=== PATIENT | female | born 1925 | race Caucasian/White ===

== ENCOUNTER 2016-12-15 01:53 | Emergency (ER) | payer MEDICARE, BC ==
[2016-12-15 02:13] VITALS: TEMP 97.6
[2016-12-15] MEDS ORDERED: IPRATROPIUM-ALBUTEROL 3 ML NEB INHALATION STA (02:32)
[2016-12-15] MEDS ORDERED: MAG HYDROX/AL HYDROX/SIMETH 30 ML, HYOSCYAMINE ELIXIR 10 ML, CIMETIDINE HCL 300 MG PO STA ×3 (02:32)
--- NOTE | 2016-12-15 03:05 | ED ---
General Adult HPI - General Chief complaint: Upper Respiratory Infection Stated complaint: Cough Time Seen by Provider: 12/15/16 02:26 Source: patient, RN notes reviewed Mode of arrival: ambulatory Limitations: no limitations - History of Present Illness Initial comments: 89-year-old female presents to the emergency Department chief complaint of flareup of her acid reflux that is causing her asthma to flare up. She ate pizza around 10:00 tonight she went to bed. She states she started acid reflux burning type pain in her throat when she developed a cough and now she feels as if her asthma has flared up. She states she does take daily medication for her acid reflux. Patient states that she just couldn't break the cycle home she would have anything to help with her acid reflux that she thought that she should be seen. Patient states she's not this shortness that she denies any pain she states she is just having a burning acid the pain in the neck is irritated cough. Patient denies any other symptoms at this time.Patient denies any recent fever, chills, shortness of breath, chest pain, back pain, abdominal pain, nausea vomiting, numbness or tingling, dysuria or hematuria, constipation or diarrhea, headaches or visual changes, or any other current symptoms. - Related Data Allergies Allergy/AdvReac Type Severity Reaction Status Date / Time adhesive tape Allergy Itching Verified 12/15/16 02:15 Review of Systems ROS Statement: Those systems with pertinent positive or pertinent negative responses have been documented in the HPI. ROS Other: All systems not noted in ROS Statement are negative. Past Medical History Past Medical History: GERD/Reflux, Hypertension Additional Past Medical History / Comment(s): kidney disease. hypothyroidism. History of Any Multi-Drug Resistant Organisms: None Reported Past Surgical History: Cholecystectomy Additional Past Surgical History / Comment(s): back. right knee replacement. bilateral feet. Past Psychological History: No Psychological Hx Reported Smoking Status: Former smoker Past Alcohol Use History: None Reported Past Drug Use History: None Reported General Exam - General Exam Comments Initial Comments: General: The patient is awake and alert, in no distress, and does not appear acutely ill. Eye: Pupils are equal, round and reactive to light, extra-ocular movements are intact; there is normal conjunctiva bilaterally. No signs of icterus. Ears, nose, mouth and throat: There are moist mucous membranes and no oral lesions. Neck: The neck is supple, there is no tenderness. Cardiovascular: There is a regular rate and rhythm. No murmur, rub or gallop is appreciated. Respiratory: Lungs are clear to auscultation, respirations are non-labored, breath sounds are equal. Mild expiratory wheeze, no stridor, rales, or rhonchi. Gastrointestinal: Soft, non-distended, non-tender abdomen without masses or organomegaly noted. There is no rebound or guarding present. No CVA tenderness. Bowel sounds are unremarkable. Back: There is no tenderness to palpation in the midline. There is no obvious deformity. No rashes noted. Musculoskeletal: Normal ROM tenderness, There is no pedal edema. There is no calf tenderness or swelling. Sensation intact. Pulses equal bilaterally 2+. Neurological: CN II-XII intact, There are no obvious motor or sensory deficits. Coordination appears grossly intact. Speech is normal. Skin: Skin is warm and dry and no rashes or lesions are noted. Psychiatric: Cooperative, appropriate mood & affect, normal judgment. Limitations: no limitations Course Vital Signs 12/15/16 12/15/16 12/15/16 02:06 03:00 03:11 Temperature 97.6 F Pulse Rate 69 66 72 Respiratory 16 Rate Blood Pressure 146/82 O2 Sat by Pulse 96 Oximetry - Reevaluation(s) Reevaluation #1: 12/15/16 03:41 Patient reevaluated and states that she is feeling much improved. EKG Findings - EKG Comments: EKG Findings:: normal sinus rhythm 74 bpm, normal axis, no atopy, no S-T depressions or elevations, or long QT Medical Decision Making - Medical Decision Making 89-year-old female presents with flareup of her acid reflux. She had cocktail did relieve the symptoms. The breathing treatment has resolved with cough and the wheezing has resolved. This time we did discuss the patient's symptoms. We did discuss her temporalis and follow-up and all the patient's questions. She stated that she understood and she does agree with this plan. All questions have been answered. She will be discharged home at this time. Disposition Clinical Impression: Asthma exacerbation, Acid reflux Disposition: HOME SELF-CARE Condition: Stable Instructions: Asthma (ED), Gastroesophageal Reflux Disease (ED) Additional Instructions: Please use medication as discussed. Please follow up with family doctor if symptoms have not improved over the next two days. Please return to the emergency room if your symptoms increase or worsen or for any other concerns. Referrals: Neena Bellamy MD [Primary Care Provider] - 1-2 days Time of Disposition: 03:41
--- NOTE | 2016-12-15 03:40 | XR ---
EXAM: XR Chest, 2 Views CLINICAL HISTORY: Reason: cough TECHNIQUE: Frontal and lateral views of the chest. COMPARISON: No relevant prior studies available. FINDINGS: Lungs: The lungs are clear. Pleural space: Unremarkable. No pneumothorax. Heart: Mild enlargement of the heart. Mediastinum: Probable small to moderate hiatal hernia. Bones/joints: Unremarkable. IMPRESSION: No acute findings.
[2016-12-15 03:59] VITALS: BP 142/59; PULSE 87; RESP 18
== END 2016-12-15 03:58 | disposition home or self-care (01) ==
LOC: EC 01:53
DX: J45.901 Unspecified asthma with (acute) exacerbation (principal); K21.9 Gastro-esophageal reflux disease without esophagitis; Z90.49 Acquired absence of other specified parts of digestive tract; Z87.891 Personal history of nicotine dependence; Z91.048 Other nonmedicinal substance allergy status
CPT/HCPCS: 71020; 93005; 94640; 99283

== ENCOUNTER → 2017-04-15 | Outpatient (CLI) | payer MEDICARE, BC | END | disposition home or self-care (01) | LOC: LABWHC1 11:24 | PROVIDERS: ATTEND Family Medicine | DX: Z01.812 Encounter for preprocedural laboratory examination (principal); M54.5 Low back pain | CPT/HCPCS: 36415; 82565 ==

== ENCOUNTER → 2017-04-16 | Outpatient (CLI) | payer MEDICARE, BC ==
--- NOTE | 2017-04-16 11:25 | MR ---
EXAMINATION TYPE: MR lumbar spine wo/w con DATE OF EXAM: 04/16/2017 COMPARISON: NONE HISTORY: 89-year-old female with chronic low back pain, Weakness Technique: Multiplanar, multisequence images of the lumbar spine were obtained before and after admin istration of 10 mL intravenous Gadavist gadolinium contrast. FINDINGS: Vertebral body heights are preserved. Conus medullaris is normally located opposite the L1 level. There are laminectomy changes at the L3 level with scarring along the posterior midline. Severe hypertrophic facet arthropathy with grade 1, nearly grade 2 anterolisthesis at L4-L5 and grade 1 retrolisthesis at L2-L3. Severe degenerative disc disease is present with degenerated, desiccated, narrowed, and bulging discs . Vacuum phenomenon is present as well as intradiscal calcification at various levels. Fatty matrix hemangioma and T12 and L3 vertebral bodies. Additional Modic type II fatty endplate magana ges present at L2-L3 and some edematous Modic type I endplate change towards the left at L1-L2. No garner spicious bone marrow replacement. Partially visualized lesions in the upper to mid right kidney for example, on axial image 30 and 29 s howing intermediate T1 and T2 signal and either no or questionable low-grade enhancement. This can be further evaluated with renal ultrasound. Otherwise, no prevertebral or paravertebral soft tissue abn ormality. Some intraosseous cystic change along the posterior right iliac bone could be on a posttraumatic or p ostsurgical basis. At T12-L1, diffuse disc bulge impresses on the ventral thecal sac. There is also hypertrophic facet a rthropathy and ligamentum flavum thickening. No significant spinal canal stenosis. Changes result in mild bilateral neuroforaminal stenosis. At L1-L2, diffuse disc bulge with ligamentum flavum thickening and facet arthropathy. Changes result in mild spinal canal stenosis with moderate left greater than right neuroforaminal stenosis. At L2-L3, hypertrophic facet arthropathy with ligamentum flavum thickening, grade 1 retrolisthesis, a nd diffuse disc bulge with a superimposed right paracentral extrusion. This results in right lateral recess stenosis probably affecting the traversing right L3 nerve root. There is mild spinal canal chon nosis with severe bilateral neuroforaminal stenosis. At L3-L4, there is diffuse disc bulge and laminectomy change decompressing the spinal canal. Facet ar thropathy is present. Changes result in mild bilateral neuroforaminal stenosis. No spinal canal steno sis. At L4-L5, hypertrophic facet arthropathy with ligamentum flavum thickening and grade 1, nearly grade 2 anterolisthesis. Changes result in mild overall spinal canal stenosis, possible abutment of both tr aversing L5 nerve roots, and moderate right and mild left neuroforaminal stenosis. At L5-S1, there is facet arthropathy. Laminectomy change since he present here as well. No spinal can al or neuroforaminal stenosis. Some enhancement adjacent to the exiting right L3 nerve root seems to localize to an extruded disc. S agittal image 11. No definite perineural enhancement. IMPRESSION: 1. Severe multilevel degenerative disc disease as well as hypertrophic facet arthropathy and ligament um flavum thickening. There is a grade 1, nearly grade 2 anterolisthesis at L4-L5 and grade 1 retroli sthesis at L2-L3. 2. Laminectomy changes at L3 and probably at L5 as well. 3. At L2-L3, the retrolisthesis and additional changes result in right lateral recess stenosis probab ly affecting the traversing right L3 nerve root, mild spinal canal stenosis, and severe bilateral jacobo roforaminal stenosis. Additionally, some enhancement adjacent to the exiting right L3 nerve root seem s to localize to an extruded disc at this level. 4. Mild spinal canal stenoses at L1-L2 and L4-L5. 5. Moderate left greater than right neuroforaminal stenosis at L1-L2 and on the right at L4-L5. Addit ional mild neural foraminal narrowing as outlined above.
== END | disposition home or self-care (01) ==
LOC: RADMRIMAIN 09:32
PROVIDERS: ATTEND Family Medicine
DX: M48.061 Spinal stenosis, lumbar region without neurogenic claudication (principal); M51.36 Other intervertebral disc degeneration, lumbar region; M46.96 Unspecified inflammatory spondylopathy, lumbar region; M43.16 Spondylolisthesis, lumbar region; M99.73 Connective tissue and disc stenosis of intervertebral foramina of lumbar region; M24.20 Disorder of ligament, unspecified site; Z98.890 Other specified postprocedural states
CPT/HCPCS: 72158; A9581

== ENCOUNTER 2017-04-28 19:53 | Inpatient (IN) | payer MEDICARE, BC ==
[2017-04-28] MEDS ORDERED: ACETAMINOPHEN TAB 500 MG TAB PO STA (20:21)
--- NOTE | 2017-04-28 20:25 | ED ---
General Adult HPI - General Source: patient Mode of arrival: wheelchair Limitations: no limitations <Blaine Patricia - Last Filed: 04/28/17 20:23> <Mitesh Cohen - Last Filed: 04/28/17 22:25> - General Chief complaint: Chest Pain Stated complaint: weakness Time Seen by Provider: 04/28/17 20:21 - History of Present Illness Initial comments: Is an 89-year-old failed a history of atrial fibrillation, hypertension, diabetes, and chronic back pain who presents emergency department for generalized body aches, chills, cough and shortness of breath. She states that she also has been having a little bit of a right earache. She is also been complaining of urinary frequency but no dysuria. No abdominal pain nausea, vomiting, or diarrhea. She denies any rashes. States that she has not been around anybody sick. She does not know she's had a fever at home. Was recently diagnosed with atrial fibrillation and placed on Eliquis which she has been compliant with. She denies any other acute complaints at this time. (Blaine Patricia) - Related Data Allergies Allergy/AdvReac Type Severity Reaction Status Date / Time adhesive tape Allergy Itching Verified 04/28/17 20:42 Review of Systems ROS Other: All systems not noted in ROS Statement are negative. <Blaine Patricia - Last Filed: 04/28/17 20:23> ROS Other: All systems not noted in ROS Statement are negative. <Mitesh Cohen - Last Filed: 04/28/17 22:25> ROS Statement: Those systems with pertinent positive or pertinent negative responses have been documented in the HPI. Past Medical History Past Medical History: GERD/Reflux, Hypertension Additional Past Medical History / Comment(s): kidney disease. hypothyroidism. History of Any Multi-Drug Resistant Organisms: None Reported Past Surgical History: Cholecystectomy Additional Past Surgical History / Comment(s): back. right knee replacement. bilateral feet. Past Psychological History: No Psychological Hx Reported Smoking Status: Former smoker Past Alcohol Use History: None Reported Past Drug Use History: None Reported <Blaine Patricia - Last Filed: 04/28/17 20:23> General Exam Limitations: no limitations <Blaine Patricia - Last Filed: 04/28/17 20:23> <Mitesh Cohen - Last Filed: 04/28/17 22:25> - General Exam Comments Initial Comments: Constitutional: Awake alert is ill-appearing and appears uncomfortable Head: Normocephalic atraumatic Eyes: no conjunctival injection No scleral icterus EOMI ENT: Oropharynx is nonerythematous, TMs clear bilaterally, no rhinorrhea Neck: No JVD Supple Heart: Regular rate rhythm normal S1-S2 no murmurs Lungs: Clear on the left lung base, right lung is clear to auscultation No wheezing Abdomen: Soft nondistended nontender Extremities: Non edematous DP pulses intact Radial pulses intact Neuro: A&Ox3 No focal neurologic deficits Psych: Appropriate mood and affect (Blaine Patricia) Course <Blaine Patricia - Last Filed: 04/28/17 20:23> <Mitesh Cohen - Last Filed: 04/28/17 22:25> Vital Signs 04/28/17 04/28/17 04/28/17 19:59 20:41 21:16 Temperature 100.9 F H 99.9 F H Pulse Rate 67 Respiratory 18 22 20 Rate Blood Pressure 176/114 O2 Sat by Pulse 93 L 94 L Oximetry 04/28/17 04/28/17 21:30 21:57 Temperature 99.3 F Pulse Rate 89 89 Respiratory 20 20 Rate Blood Pressure 154/82 173/98 O2 Sat by Pulse 97 96 Oximetry - Reevaluation(s) Reevaluation #1: 04/28/17 22:24 Patient is positive for influenza. Patient also has evidence of urinary tract infection and questionable pneumonia. Patient does meet sepsis criteria at 2224. Blood cultures and lactic acid ordered. Antibiotics will be started. Tamiflu will also be started. (Mitesh Cohen) EKG Findings - EKG Comments: EKG Findings:: EKG showing atrial fibrillation with a rate of 95. No abnormal ST segment changes or T-wave inversions. QTC is 397. Other intervals normal. No ectopy. <Blaine Patricia - Last Filed: 04/28/17 20:23> Medical Decision Making <Blaine Patricia - Last Filed: 04/28/17 20:23> - Lab Data Result diagrams: 04/28/17 21:00 04/28/17 21:00 <Mitesh Cohen - Last Filed: 04/28/17 22:25> - Medical Decision Making Patient reevaluated by myself, Dr. Cohen. Patient resting comfortably in bed. Patient states she still feels lousy. Patient and family updated on results and plan. Case was discussed in detail with Dr. Oneil, who will admit for Dr. Bellamy. (Mitesh Cohen) - Lab Data Lab Results 04/28/17 04/28/17 04/28/17 Range/Units 20:20 21:00 21:00 WBC 5.9 (3.8-10.6) k/uL RBC 4.24 (3.80-5.40) m/uL Hgb 12.4 (11.4-16.0) gm/dL Hct 37.5 (34.0-46.0) % MCV 88.4 (80.0-100.0) fL MCH 29.4 (25.0-35.0) pg MCHC 33.2 (31.0-37.0) g/dL RDW 13.4 (11.5-15.5) % Plt Count 130 L (150-450) k/uL Neutrophils % 83 % Lymphocytes % 6 % Monocytes % 9 % Eosinophils % 0 % Basophils % 1 % Neutrophils # 4.9 (1.3-7.7) k/uL Lymphocytes # 0.3 L (1.0-4.8) k/uL Monocytes # 0.5 (0-1.0) k/uL Eosinophils # 0.0 (0-0.7) k/uL Basophils # 0.0 (0-0.2) k/uL PT (9.0-12.0) sec INR (<1.2) APTT (22.0-30.0) sec Sodium (137-145) mmol/L Potassium (3.5-5.1) mmol/L Chloride (98-107) mmol/L Carbon Dioxide (22-30) mmol/L Anion Gap mmol/L BUN (7-17) mg/dL Creatinine (0.52-1.04) mg/dL Est GFR (MDRD) Af Amer (>60 ml/min/1.73 sqM) Est GFR (MDRD) Non-Af (>60 ml/min/1.73 sqM) Glucose (74-99) mg/dL Plasma Lactic Acid [place] (0.7-2.0) mmol/L Calcium (8.4-10.2) mg/dL Total Bilirubin (0.2-1.3) mg/dL AST (14-36) U/L ALT (9-52) U/L Alkaline Phosphatase (38-126) U/L Total Creatine Kinase 79 (30-135) U/L CK-MB (CK-2) 0.6 (0.0-2.4) ng/mL CK-MB (CK-2) Rel Index 0.8 Troponin I 0.038 H* (0.000-0.034) ng/mL Total Protein (6.3-8.2) g/dL Albumin (3.5-5.0) g/dL Urine Color Urine Appearance (Clear) Urine pH (5.0-8.0) Ur Specific [place] (1.001-1.035) Urine Protein (Negative) Urine Glucose (UA) (Negative) Urine Ketones (Negative) Urine Blood (Negative) Urine Nitrite (Negative) Urine Bilirubin (Negative) Urine Urobilinogen (<2.0) mg/dL Ur Leukocyte Esterase (Negative) Urine RBC (0-5) /hpf Urine WBC (0-5) /hpf Ur Squamous Epith Cells (0-4) /hpf Urine Bacteria (None) /hpf Hyaline Casts (0-2) /lpf Urine Mucus (None) /hpf Influenza Type A RNA Detected H (Not Detectd) Influenza Type B (PCR) Not Detected (Not Detectd) 04/28/17 04/28/17 04/28/17 Range/Units 21:00 21:00 21:00 WBC (3.8-10.6) k/uL RBC (3.80-5.40) m/uL Hgb (11.4-16.0) gm/dL Hct (34.0-46.0) % MCV (80.0-100.0) fL MCH (25.0-35.0) pg MCHC (31.0-37.0) g/dL RDW (11.5-15.5) % Plt Count (150-450) k/uL Neutrophils % % Lymphocytes % % Monocytes % % Eosinophils % % Basophils % % Neutrophils # (1.3-7.7) k/uL Lymphocytes # (1.0-4.8) k/uL Monocytes # (0-1.0) k/uL Eosinophils # (0-0.7) k/uL Basophils # (0-0.2) k/uL PT 11.7 (9.0-12.0) sec INR 1.2 H (<1.2) APTT 28.0 (22.0-30.0) sec Sodium 135 L (137-145) mmol/L Potassium 3.9 (3.5-5.1) mmol/L Chloride 98 (98-107) mmol/L Carbon Dioxide 26 (22-30) mmol/L Anion Gap 11 mmol/L BUN 20 H (7-17) mg/dL Creatinine 1.00 (0.52-1.04) mg/dL Est GFR (MDRD) Af Amer >60 (>60 ml/min/1.73 sqM) Est GFR (MDRD) Non-Af 52 (>60 ml/min/1.73 sqM) Glucose 178 H (74-99) mg/dL Plasma Lactic Acid [place] 1.2 (0.7-2.0) mmol/L Calcium 9.2 (8.4-10.2) mg/dL Total Bilirubin 0.6 (0.2-1.3) mg/dL AST 25 (14-36) U/L ALT 31 (9-52) U/L Alkaline Phosphatase 96 (38-126) U/L Total Creatine Kinase (30-135) U/L CK-MB (CK-2) (0.0-2.4) ng/mL CK-MB (CK-2) Rel Index Troponin I (0.000-0.034) ng/mL Total Protein 6.5 (6.3-8.2) g/dL Albumin 3.7 (3.5-5.0) g/dL Urine Color Urine Appearance (Clear) Urine pH (5.0-8.0) Ur Specific [place] (1.001-1.035) Urine Protein (Negative) Urine Glucose (UA) (Negative) Urine Ketones (Negative) Urine Blood (Negative) Urine Nitrite (Negative) Urine Bilirubin (Negative) Urine Urobilinogen (<2.0) mg/dL Ur Leukocyte Esterase (Negative) Urine RBC (0-5) /hpf Urine WBC (0-5) /hpf Ur Squamous Epith Cells (0-4) /hpf Urine Bacteria (None) /hpf Hyaline Casts (0-2) /lpf Urine Mucus (None) /hpf Influenza Type A RNA (Not Detectd) Influenza Type B (PCR) (Not Detectd) 04/28/17 Range/Units 21:45 WBC (3.8-10.6) k/uL RBC (3.80-5.40) m/uL Hgb (11.4-16.0) gm/dL Hct (34.0-46.0) % MCV (80.0-100.0) fL MCH (25.0-35.0) pg MCHC (31.0-37.0) g/dL RDW (11.5-15.5) % Plt Count (150-450) k/uL Neutrophils % % Lymphocytes % % Monocytes % % Eosinophils % % Basophils % % Neutrophils # (1.3-7.7) k/uL Lymphocytes # (1.0-4.8) k/uL Monocytes # (0-1.0) k/uL Eosinophils # (0-0.7) k/uL Basophils # (0-0.2) k/uL PT (9.0-12.0) sec INR (<1.2) APTT (22.0-30.0) sec Sodium (137-145) mmol/L Potassium (3.5-5.1) mmol/L Chloride (98-107) mmol/L Carbon Dioxide (22-30) mmol/L Anion Gap mmol/L BUN (7-17) mg/dL Creatinine (0.52-1.04) mg/dL Est GFR (MDRD) Af Amer (>60 ml/min/1.73 sqM) Est GFR (MDRD) Non-Af (>60 ml/min/1.73 sqM) Glucose (74-99) mg/dL Plasma Lactic Acid [place] (0.7-2.0) mmol/L Calcium (8.4-10.2) mg/dL Total Bilirubin (0.2-1.3) mg/dL AST (14-36) U/L ALT (9-52) U/L Alkaline Phosphatase (38-126) U/L Total Creatine Kinase (30-135) U/L CK-MB (CK-2) (0.0-2.4) ng/mL CK-MB (CK-2) Rel Index Troponin I (0.000-0.034) ng/mL Total Protein (6.3-8.2) g/dL Albumin (3.5-5.0) g/dL Urine Color Yellow Urine Appearance Cloudy H (Clear) Urine pH 6.5 (5.0-8.0) Ur Specific [place] 1.018 (1.001-1.035) Urine Protein 3+ H (Negative) Urine Glucose (UA) Negative (Negative) Urine Ketones Trace H (Negative) Urine Blood Small H (Negative) Urine Nitrite Negative (Negative) Urine Bilirubin Negative (Negative) Urine Urobilinogen 3.0 (<2.0) mg/dL Ur Leukocyte Esterase Small H (Negative) Urine RBC 8 H (0-5) /hpf Urine WBC 24 H (0-5) /hpf Ur Squamous Epith Cells 2 (0-4) /hpf Urine Bacteria Moderate H (None) /hpf Hyaline Casts 3 H (0-2) /lpf Urine Mucus Rare H (None) /hpf Influenza Type A RNA (Not Detectd) Influenza Type B (PCR) (Not Detectd) Critical Care Time Critical Care Time: Yes Total Critical Care Time: 32 <Mitesh Cohen - Last Filed: 04/28/17 22:25> Disposition <Blaine Patricia - Last Filed: 04/28/17 20:23> Decision Time: 22:25 <Mitesh Cohen - Last Filed: 04/28/17 22:25> Clinical Impression: Influenza, Urinary tract infection, Sepsis Disposition: ADMITTED IP TO THIS HOSP Referrals: Neena Bellamy MD [Primary Care Provider] - 1-2 days
[2017-04-28] MEDS: SODIUM CHLORIDE 0.9% 1,000 ML IV SCH (21:03)
[2017-04-28] MEDS: SODIUM CHLORIDE 0.9% 500 ML IV SCH ×2 (21:03→21:39)
[2017-04-28] MEDS ORDERED: OSELTAMIVIR 75 MG CAP PO STA (21:06)
[2017-04-28 21:18] LABS: Basophils % (A) 1 %; Eosinophils % (A) 0 %; HCT 37.5 % (34.0-46.0); HGB 12.4 gm/dL (11.4-16.0); Lymphocytes # (A) 0.3 k/uL (1.0-4.8); Lymphocytes % (A) 6 %; MCH 29.4 pg (25.0-35.0); MCHC 33.2 g/dL (31.0-37.0); MCV 88.4 fL (80.0-100.0); Mean Platelet Volume 8.4; Monocytes # (A) 0.5 k/uL (0-1.0); Monocytes % (A) 9 %; Neutrophils # (A) 4.9 k/uL (1.3-7.7); Neutrophils % (A) 83 %; Platelet Count 130 k/uL (150-450); RBC 4.24 m/uL (3.80-5.40); RDW 13.4 % (11.5-15.5); WBC 5.9 k/uL (3.8-10.6)
[2017-04-28 21:26] LABS: INR 1.2 (<1.2); Prothrombin Time 11.7 sec (9.0-12.0)
[2017-04-28 21:32] LABS: ALT 31 U/L (9-52); AST 25 U/L (14-36); Albumin 3.7 g/dL (3.5-5.0); Alkaline Phosphatase 96 U/L (38-126); Anion Gap 11 mmol/L; Blood Urea Nitrogen 20 mg/dL (7-17); Calcium 9.2 mg/dL (8.4-10.2); Carbon Dioxide 26 mmol/L (22-30); Chloride 98 mmol/L (98-107); Glucose 178 mg/dL (74-99); Potassium 3.9 mmol/L (3.5-5.1); Sodium 135 mmol/L (137-145); Total Bilirubin 0.6 mg/dL (0.2-1.3); Total Protein 6.5 g/dL (6.3-8.2)
--- NOTE | 2017-04-28 21:49 | XR ---
EXAMINATION TYPE: XR chest 2V DATE OF EXAM: 04/28/2017 COMPARISON: 12/15/2016 HISTORY: Cough TECHNIQUE: Frontal and lateral views of the chest are obtained. FINDINGS: There is some coarsening of interstitial markings. Thoracic aorta is atheromatous. There a re chest leads. There is no pleural effusion. There is mild wedging of T9 and T8 vertebral bodies. IMPRESSION: Lung markings are increased compared to last exam but there is no overt heart failure. T here is a new minimal infiltrate in the periphery of the left midlung compared to old exam.
[2017-04-28 21:52] LABS: Creatine Kinase MB 0.6 ng/mL (0.0-2.4)
[2017-04-28 21:55] LABS: Troponin I 0.038 ng/mL (0.000-0.034)
[2017-04-28 22:08] LABS: Appearance,Urine Cloudy (Clear); Bacteria,Urine Moderate /hpf; Bilirubin,Urine Negative (Negative); Blood,Urine Small (Negative); Color,Urine Yellow; Glucose,Urine (UA) Negative (Negative); Hyaline Casts,Urine 3 /lpf (0-2); Ketones,Urine Trace (Negative); Leukocyte Esterase,Urine Small (Negative); Mucus,Urine Rare /hpf; Nitrite,Urine Negative (Negative); PH, Urine 6.5 (5.0-8.0); Protein,Urine 3+ (Negative); RBC,Urine 8 /hpf (0-5); Specific Gravity,Urine 1.018 (1.001-1.035); Squamous Epithelial Cell,Urine 2 /hpf (0-4); WBC,Urine 24 /hpf (0-5)
[2017-04-28] MEDS ORDERED: IBUPROFEN 400 MG TAB PO PRN (22:26)
[2017-04-28] MEDS ORDERED: NALOXONE 0.4 MG/ML 1 ML VIAL IV PRN (22:26)
[2017-04-28] MEDS ORDERED: LEVOFLOXACIN 750MG-D5W PMX 750 MG in DEXTROSE/WATER 1 150ML.BAG IVPB STA (22:28)
[2017-04-29 00:25] LABS: Glucose,Whole Blood 179 mg/dL (75-99)
[2017-04-29 00:26] VITALS: BMI 27.3
[2017-04-29] MEDS: SODIUM CHLORIDE 0.9% 500 ML IV SCH (00:39)
--- NOTE | 2017-04-29 01:26 | P.HPIM ---
History of Present Illness H&P Date: 04/29/17 Chief Complaint: generalized body aches, chest pain with coughing 89 year old female recently diagnosed with Afib on Eliquis. presented due to couple days history of generalized body aches, runny nose and productive cough. She describes a productive cough of whitish sputum, no hemoptysis, denies sick contacts or any recent travel, this is associated with chest pain right sided and central when coughing (pleuritic in nature), denies any fever at home, but reports some shortness of breath at times with severe attacks of coughing. This is also associated with runny nose , and generalized muscle pain and aches. She reports taking the flu shot this year. She also reports 2 day history of frequent urination , denies any heamturia or dysuria. denies any abd pain or diarrhea, but reports feeling nauseas. She has advance directives and expressed interest in No code status. Currently she feels slightly better and wants to rest more, she feels very cold despite being in a really warm room. Otherwise denies any history of heart failure of CAD, denies, orthopnea, dyspnea on exertion, PNDs. denies any GI bleeding or any bleeding tendencies. In the ED, patient tested positive for influenza type A, and had a positive UA. Review of Systems Constitutional: Patient denies fever, reports chills, denies night sweating, denies significant weight changes Eyes: Patient denies visual changes, denies eye pain ENT: Patient reports ear pain, reports rhinorrhea, reports sore throat Cardiovascular: Patient denies chest pain, denies exertional dyspnea, denies peripheral leg edema, denies orthopnea, denies paroxysmal nocturnal dyspnea Respiratory: as per HPI Gastrointestinal: Patient denies diarrhea, denies constipation, , denies vomiting, denies abdominal pain Genitourinary: Patient denies dysuria, denies hematuria, , denies genital lesions Musculoskeletal: Patient reports diffuse body aches Psychiatric: Patient denies changes in mood or memory, denies suicidal ideation, denies anxiety Endocrine: Patient denies heat intolerance, reports cold intolerance, denies excessive thirst, denies polyuria Neurological: Patient denies focal neurologic deficits, denies weakness, denies numbness, denies tingling Hem/Lymphatic: Patient denies bleeding tendency, denies bruising, denies swollen lymph glands Allergic/Immun: Patient denies recent allergic reactions Skin: Patient denies rashes, denies pruritis, denies ulcers Past Medical History Past Medical History: Atrial Fibrillation, Diabetes Mellitus, GERD/Reflux, Hypertension Additional Past Medical History / Comment(s): kidney disease. hypothyroidism. History of Any Multi-Drug Resistant Organisms: None Reported Past Surgical History: Cholecystectomy Additional Past Surgical History / Comment(s): back. right knee replacement. bilateral feet. Past Psychological History: No Psychological Hx Reported Smoking Status: Former smoker Past Alcohol Use History: None Reported Past Drug Use History: None Reported Additional History: Denies family history of cancer Medications and Allergies Home Medications Medication Instructions Recorded Confirmed Type Apixaban [Eliquis] 2.5 mg PO BID 04/28/17 04/28/17 History Ascorbic Acid [Vitamin C] 500 mg PO DAILY 04/28/17 04/28/17 History Cholecalciferol [Vitamin D3] 1,000 unit PO DAILY 04/28/17 04/28/17 History Enalapril/Hydrochlorothiazide 1 tab PO DAILY 04/28/17 04/28/17 History [Enalapril-Hctz 10-25 mg Tablet] Gabapentin [Neurontin] 300 mg PO TID 04/28/17 04/28/17 History Levothyroxine Sodium [Synthroid] 25 mcg PO DAILY 04/28/17 04/28/17 History Magnesium Oxide [Mag-Ox] 250 mg PO DAILY 04/28/17 04/28/17 History Omeprazole 20 mg PO DAILY 04/28/17 04/28/17 History Pioglitazone HCl 15 mg PO DAILY 04/28/17 04/28/17 History Tolterodine ER [Detrol LA] 4 mg PO DAILY 04/28/17 04/28/17 History oxyCODONE-APAP 10-325MG [Percocet 0.5 - 1 tab PO TID PRN 04/28/17 04/28/17 History 10-325 mg] Allergies Allergy/AdvReac Type Severity Reaction Status Date / Time adhesive tape Allergy Itching Verified 04/28/17 20:42 Physical Exam Vitals: Vital Signs Temp Pulse Resp BP Pulse Ox 04/28/17 22:53 88 20 176/98 93 L 04/28/17 21:57 99.3 F 89 20 173/98 96 04/28/17 21:30 89 20 154/82 97 04/28/17 21:16 99.9 F H 20 94 L 04/28/17 20:41 22 04/28/17 19:59 100.9 F H 67 18 176/114 93 L Intake and Output 04/28/17 04/28/17 04/29/17 14:59 22:59 06:59 Other: Weight 79.379 kg Patient Weight 04/29/17 06:59 Weight 79.379 kg Constitutional: No acute distress, conversant, pleasant Eyes: Anicteric sclerae, moist conjunctiva, no lid-lag Pupils equal round reactive to light ENMT: NC/AT Oropharynx clear, no erythema, exudates Neck: Supple, FROM, no masses, or JVD No carotid bruits No thyromegaly Lungs: Good breath sounds bilaterally, there is minimal end expiratory wheezes Clear to percussion Normal respiratory effort, no accessory muscle use Cardiovascular: Heart regular in rate and rhythm, No murmurs, gallops, or rubs No peripheral edema Abdominal: Soft Nontender, no guarding, rebound or rigidity Abdomen moving with respiration Normoactive bowel sounds No hepatomegaly, No splenomegaly No palpable mass No abdominal wall hernia noted Skin: Normal temperature, tone, texture, turgor No induration No subcutaneous nodules No rash, lesions No ulcers Extremities: No digital cyanosis No clubbing Pedal pulses intact and symmetrical Radial pulses intact and symmetrical No calf tenderness Psychiatric: Alert and oriented to person, place Appropriate affect fair judgment Neuro Muscles Strength 4/5 in all 4 extremities Sensation to light touch grossly present throughout Cranial nerves II-XII grossly intact No focal sensory deficits Lymphatics: no palpable cervical or supraclavicular , or inguinal lymph nodes Results CBC & Chem 7: 04/28/17 21:00 04/28/17 21:00 Labs: Abnormal Lab Results - Last 24 Hours (Table) 04/28/17 04/28/17 04/28/17 Range/Units 20:20 21:00 21:00 Plt Count 130 L (150-450) k/uL Lymphocytes # 0.3 L (1.0-4.8) k/uL INR (<1.2) Sodium (137-145) mmol/L BUN (7-17) mg/dL Glucose (74-99) mg/dL Troponin I 0.038 H* (0.000-0.034) ng/mL Urine Appearance (Clear) Urine Protein (Negative) Urine Ketones (Negative) Urine Blood (Negative) Ur Leukocyte Esterase (Negative) Urine RBC (0-5) /hpf Urine WBC (0-5) /hpf Urine Bacteria (None) /hpf Hyaline Casts (0-2) /lpf Urine Mucus (None) /hpf Influenza Type A RNA Detected H (Not Detectd) 04/28/17 04/28/17 04/28/17 Range/Units 21:00 21:00 21:45 Plt Count (150-450) k/uL Lymphocytes # (1.0-4.8) k/uL INR 1.2 H (<1.2) Sodium 135 L (137-145) mmol/L BUN 20 H (7-17) mg/dL Glucose 178 H (74-99) mg/dL Troponin I (0.000-0.034) ng/mL Urine Appearance Cloudy H (Clear) Urine Protein 3+ H (Negative) Urine Ketones Trace H (Negative) Urine Blood Small H (Negative) Ur Leukocyte Esterase Small H (Negative) Urine RBC 8 H (0-5) /hpf Urine WBC 24 H (0-5) /hpf Urine Bacteria Moderate H (None) /hpf Hyaline Casts 3 H (0-2) /lpf Urine Mucus Rare H (None) /hpf Influenza Type A RNA (Not Detectd) Assessment and Plan Assessment: 89 year old female presented with 2 days history of flu like illness with pleuritic chest pain. Patient was found to have Positive Flu type A. She was also found to have slightly elevated troponins , no ekg changes, denies any chest pain other than pleuritic chest pain exclusively when coughs. (1) Influenza Narrative/Plan: droplets precautions start tamiflu with possible viral pneumonia no clinical evidence of Sepsis Current Visit: Yes Status: Acute Code(s): J11.1 - FLU DUE TO UNIDENTIFIED INFLUENZA VIRUS W OTH RESP MANIFEST SNOMED Code(s): 2303393 (2) Urinary tract infection Narrative/Plan: await urine cultures started on levofloxacin Current Visit: Yes Status: Acute Code(s): N39.0 - URINARY TRACT INFECTION, SITE NOT SPECIFIED SNOMED Code(s): 64750922 (3) Elevated troponin Narrative/Plan: denies any chest pain , EKG no acute changes trend heart enzymes , r/o ACS resume home medications no history of CAD start ASA 81 mg Current Visit: Yes Status: Acute Code(s): R74.8 - ABNORMAL LEVELS OF OTHER SERUM ENZYMES SNOMED Code(s): 324393525 (4) Diabetes mellitus Narrative/Plan: elevated blood sugar, type II DM, on oral hypoglycemic agents at home insulin per sliding scale hold oral hypoglycemic agents check A1c% Current Visit: Yes Status: Chronic Code(s): E11.9 - TYPE 2 DIABETES MELLITUS WITHOUT COMPLICATIONS SNOMED Code(s): 23021656 (5) Hypothyroid Narrative/Plan: resume home medications Current Visit: No Status: Chronic Code(s): E03.9 - HYPOTHYROIDISM, UNSPECIFIED SNOMED Code(s): 46568523 (6) Hypertension Current Visit: Yes Status: Chronic Code(s): I10 - ESSENTIAL (PRIMARY) HYPERTENSION SNOMED Code(s): 00027241 (7) Afib Narrative/Plan: chronic afib, rate controlled now resume Eliquis cardiac monitoring Current Visit: No Status: Chronic Code(s): I48.91 - UNSPECIFIED ATRIAL FIBRILLATION SNOMED Code(s): 93123653 (8) DVT prophylaxis Narrative/Plan: on eliquis for afib Current Visit: Yes Status: Acute Code(s): QJJ6810 - SNOMED Code(s): 981618532 (9) Thrombocytopenia Narrative/Plan: no evidence of bleeding continue to monitor Current Visit: Yes Status: Acute Code(s): D69.6 - THROMBOCYTOPENIA, UNSPECIFIED SNOMED Code(s): 388277632 Plan: Surrogate decision-maker: patient daughter CODE STATUS:no code DVT prophylaxis: on eliquis for afib Discussed with: Patient, ER, RN Anticipated discharge: 48-72 hours due to severity of illness, patient tested positive for flu A with possible viral pneumonia, patient also has UTI Anticipated discharge place: pending clinical course, possibly home
[2017-04-29 03:26] LABS: Basophils % (A) 0 %; Eosinophils % (A) 0 %; HCT 36.9 % (34.0-46.0); HGB 11.9 gm/dL (11.4-16.0); Lymphocytes # (A) 0.5 k/uL (1.0-4.8); Lymphocytes % (A) 10 %; MCH 28.6 pg (25.0-35.0); MCHC 32.3 g/dL (31.0-37.0); MCV 88.7 fL (80.0-100.0); Mean Platelet Volume 9.5; Monocytes # (A) 0.4 k/uL (0-1.0); Monocytes % (A) 9 %; Neutrophils # (A) 3.9 k/uL (1.3-7.7); Neutrophils % (A) 79 %; Platelet Count 130 k/uL (150-450); RBC 4.17 m/uL (3.80-5.40); RDW 14.3 % (11.5-15.5)
[2017-04-29 03:55] LABS: ALT 35 U/L (9-52); AST 24 U/L (14-36); Albumin 3.4 g/dL (3.5-5.0); Alkaline Phosphatase 88 U/L (38-126); Anion Gap 11 mmol/L; Blood Urea Nitrogen 19 mg/dL (7-17); Calcium 8.9 mg/dL (8.4-10.2); Carbon Dioxide 26 mmol/L (22-30); Chloride 100 mmol/L (98-107); Glucose 142 mg/dL (74-99); Potassium 3.7 mmol/L (3.5-5.1); Sodium 137 mmol/L (137-145); Total Bilirubin 0.4 mg/dL (0.2-1.3)
[2017-04-29 04:07] LABS: Creatine Kinase MB 1.2 ng/mL (0.0-2.4)
[2017-04-29 04:16] LABS: Troponin I 0.044 ng/mL (0.000-0.034)
[2017-04-29 06:17] LABS: Glucose,Whole Blood 134 mg/dL (75-99)
[2017-04-29] MEDS: INSULIN ASPART 100 UNIT/ML 1 ML 10 ML VIAL SQ SCH ×4 (06:17→21:11)
[2017-04-29] MEDS: SODIUM CHLORIDE 0.9% 1,000 ML IV SCH ×3 (06:17→20:41)
[2017-04-29] MEDS ORDERED: ALBUTEROL NEBULIZED 2.5 MG/3 ML INHALATION PRN (08:25)
[2017-04-29] MEDS ORDERED: hydrALAZINE HCL 20 MG/ML 1 ML VIAL IVP PRN (08:25)
[2017-04-29] MEDS: APIXABAN 2.5 MG TABLET PO SCH ×2 (08:51→20:40)
[2017-04-29] MEDS: ASCORBIC ACID 500 MG TAB PO SCH (08:51)
[2017-04-29] MEDS: GABAPENTIN 100 MG CAP PO SCH ×3 (08:51→20:40)
[2017-04-29] MEDS: CHOLECALCIFEROL 1,000 UNIT TAB PO SCH (08:51)
[2017-04-29] MEDS: MAGNESIUM OXIDE 400 MG TAB PO SCH (08:52)
[2017-04-29] MEDS: LISINOPRIL-HCTZ 20-25 MG 1 EACH TAB PO SCH (08:52)
[2017-04-29] MEDS: LEVOTHYROXINE 25 MCG TAB PO SCH (08:52)
[2017-04-29] MEDS: PANTOPRAZOLE 40 MG TABLET PO SCH (08:53)
[2017-04-29] MEDS: ACETAMINOPHEN TAB 325 MG TAB PO PRN ×2 (08:53→17:14)
[2017-04-29] MEDS: OXYBUTYNIN XL 5 MG TAB.ER.24 PO SCH (08:53)
[2017-04-29] MEDS ORDERED: OSELTAMIVIR 75 MG CAP PO SCH (09:00)
[2017-04-29 10:09] LABS: Creatine Kinase MB 1.6 ng/mL (0.0-2.4)
[2017-04-29 10:11] LABS: Troponin I 0.048 ng/mL (0.000-0.034)
--- NOTE | 2017-04-29 11:26 | P.PN ---
Subjective Progress Note Date: 04/29/17 Principal diagnosis: Influenza Patient is an 89-year-old female with a past medical history of hypertension, diabetes, hypothyroidism, and atrial fibrillation who presented to the ER with complaints of body aches and productive cough. In the ER she underwent an extensive evaluation. On her initial vital signs she was found to be head lightly hypertensive with a systolic blood pressure of 174 and a temperature of 100.9. Chest x-ray showed a new minimal infiltrate in the periphery of the left mid lung. Laboratory analysis showed a mildly elevated troponin at 0.03 and an elevated glucose at 178. Urinalysis showed possible urinary tract infection. Her influenza swab demonstrated influenza a. She was started on Tamiflu, Levaquin, and IV fluids. She was given a dose of aspirin. She was admitted to the selective care unit for further monitoring. Patient seen and examined at bedside. She is still having severe body aches and back pain. She states her cough has improved slightly. She is still feeling short of breath. She denies any chest pain. She denies any nausea. She is feeling very fatigued. She has lack of appetite. Objective - Vital Signs Vital signs: Vital Signs Temp 98 F 04/29/17 04:00 Pulse 86 04/29/17 04:00 Resp 17 04/29/17 04:00 BP 154/86 04/29/17 04:00 Pulse Ox 97 04/29/17 04:00 Intake & Output 04/28/17 04/29/17 04/29/17 18:59 06:59 18:59 Intake Total 600 Output Total 300 Balance 300 Weight 98.1 kg Intake: Intake, IV Titration 600 Amount Sodium Chloride 0.9% 1, 600 000 ml @ 100 mls/hr IV . Q10H [facility] Rx#:[id number] Output: Urine 300 - Exam General: ill appearing, mild distress, appears at stated age, obese Derm: warm, dry Head: atraumatic, normocephalic, symmetric, hard of hearing Eyes: EOMI, no lid lag, anicteric sclera Mouth: no lip lesion, mucus membranes moist Cardiovascular: S1S2 reg, no murmur, positive posterior tibial pulse bilateral, Lungs: Decreased breath sounds bilateral bases, no rhonchi, no rales , no accessory muscle use Abdominal: soft, nontender to palpation, no guarding, no appreciable organomegaly Ext: no gross muscle atrophy, trace edema, no contractures Neuro: CN II-XI grossly intact, no focal neuro deficits Psych: Alert, oriented, appropriate affect - Labs CBC & Chem 7: 04/29/17 03:02 04/29/17 03:02 Labs: Abnormal Lab Results - Last 24 Hours (Table) 04/28/17 04/28/17 04/28/17 Range/Units 20:20 21:00 21:00 Plt Count 130 L (150-450) k/uL Lymphocytes # 0.3 L (1.0-4.8) k/uL INR (<1.2) Sodium (137-145) mmol/L BUN (7-17) mg/dL Glucose (74-99) mg/dL POC Glucose (mg/dL) (75-99) mg/dL Troponin I 0.038 H* (0.000-0.034) ng/mL Total Protein (6.3-8.2) g/dL Albumin (3.5-5.0) g/dL Urine Appearance (Clear) Urine Protein (Negative) Urine Ketones (Negative) Urine Blood (Negative) Ur Leukocyte Esterase (Negative) Urine RBC (0-5) /hpf Urine WBC (0-5) /hpf Urine Bacteria (None) /hpf Hyaline Casts (0-2) /lpf Urine Mucus (None) /hpf Influenza Type A RNA Detected H (Not Detectd) 04/28/17 04/28/17 04/28/17 Range/Units 21:00 21:00 21:45 Plt Count (150-450) k/uL Lymphocytes # (1.0-4.8) k/uL INR 1.2 H (<1.2) Sodium 135 L (137-145) mmol/L BUN 20 H (7-17) mg/dL Glucose 178 H (74-99) mg/dL POC Glucose (mg/dL) (75-99) mg/dL Troponin I (0.000-0.034) ng/mL Total Protein (6.3-8.2) g/dL Albumin (3.5-5.0) g/dL Urine Appearance Cloudy H (Clear) Urine Protein 3+ H (Negative) Urine Ketones Trace H (Negative) Urine Blood Small H (Negative) Ur Leukocyte Esterase Small H (Negative) Urine RBC 8 H (0-5) /hpf Urine WBC 24 H (0-5) /hpf Urine Bacteria Moderate H (None) /hpf Hyaline Casts 3 H (0-2) /lpf Urine Mucus Rare H (None) /hpf Influenza Type A RNA (Not Detectd) 04/29/17 04/29/17 04/29/17 Range/Units 00:05 03:02 03:02 Plt Count 130 L (150-450) k/uL Lymphocytes # 0.5 L (1.0-4.8) k/uL INR (<1.2) Sodium (137-145) mmol/L BUN (7-17) mg/dL Glucose (74-99) mg/dL POC Glucose (mg/dL) 179 H (75-99) mg/dL Troponin I 0.044 H* (0.000-0.034) ng/mL Total Protein (6.3-8.2) g/dL Albumin (3.5-5.0) g/dL Urine Appearance (Clear) Urine Protein (Negative) Urine Ketones (Negative) Urine Blood (Negative) Ur Leukocyte Esterase (Negative) Urine RBC (0-5) /hpf Urine WBC (0-5) /hpf Urine Bacteria (None) /hpf Hyaline Casts (0-2) /lpf Urine Mucus (None) /hpf Influenza Type A RNA (Not Detectd) 04/29/17 04/29/17 Range/Units 03:02 06:14 Plt Count (150-450) k/uL Lymphocytes # (1.0-4.8) k/uL INR (<1.2) Sodium (137-145) mmol/L BUN 19 H (7-17) mg/dL Glucose 142 H (74-99) mg/dL POC Glucose (mg/dL) 134 H (75-99) mg/dL Troponin I (0.000-0.034) ng/mL Total Protein 6.0 L (6.3-8.2) g/dL Albumin 3.4 L (3.5-5.0) g/dL Urine Appearance (Clear) Urine Protein (Negative) Urine Ketones (Negative) Urine Blood (Negative) Ur Leukocyte Esterase (Negative) Urine RBC (0-5) /hpf Urine WBC (0-5) /hpf Urine Bacteria (None) /hpf Hyaline Casts (0-2) /lpf Urine Mucus (None) /hpf Influenza Type A RNA (Not Detectd) Assessment and Plan Assessment: Influenza A with probable viral pneumonia -Continue with Tamiflu -IV fluids -Pain control -Albuterol as needed - no signs of clinical sepsis - repeat CXR in AM Probable urinary tract infection -Await urine culture If an on Levaquin Mildly positive troponins likely stress-induced due to illness -Troponin elevation not consistent with myocardial injury -Attempt to obtain records from Dr. Bellamy's office to review recent echocardiogram Atrial fibrillation, rate controlled -Not on any rate controlling medications -Continue with eliquis Diabetes mellitus type 2 -Hold piaglitazone - A1C 6.6 03/29 - SSI Hypertensive urgency - improved with minimal treatement - continue home meds - prn hydalazine - follow BP Hypothyroidism - conitnue with synthroid DVT prophylaxis: farnaz Discussed with: Patient and nursing Anticipated discharge: 24-[address]:home A total of 35 minutes was spent on the care of this complex patient more than 50 % of the time was spent in counseling and care coordination.
[2017-04-29 12:04] LABS: Glucose,Whole Blood 143 mg/dL (75-99)
[2017-04-29 14:15] LABS: Hemoglobin A1C 6.8 % (4.0-6.0)
[2017-04-29 16:29] LABS: Glucose,Whole Blood 126 mg/dL (75-99)
[2017-04-29] MEDS: OSELTAMIVIR 60 MG/10 ML ORAL SYRINGE PO SCH (20:40)
[2017-04-29 21:12] LABS: Glucose,Whole Blood 97 mg/dL (75-99)
[2017-04-30] MEDS: INSULIN ASPART 100 UNIT/ML 1 ML 10 ML VIAL SQ SCH ×4 (06:06→23:45)
[2017-04-30 06:07] LABS: Glucose,Whole Blood 121 mg/dL (75-99)
[2017-04-30 06:38] LABS: ALT 31 U/L (9-52); AST 27 U/L (14-36); Alkaline Phosphatase 81 U/L (38-126); Anion Gap 9 mmol/L; Blood Urea Nitrogen 19 mg/dL (7-17); Calcium 8.8 mg/dL (8.4-10.2); Carbon Dioxide 27 mmol/L (22-30); Chloride 105 mmol/L (98-107); Glucose 123 mg/dL (74-99); Magnesium 1.7 mg/dL (1.6-2.3); Potassium 3.4 mmol/L (3.5-5.1); Sodium 141 mmol/L (137-145); Total Bilirubin 0.3 mg/dL (0.2-1.3); Total Protein 5.7 g/dL (6.3-8.2)
[2017-04-30 06:48] LABS: HGB 12.2 gm/dL (11.4-16.0); MCH 28.4 pg (25.0-35.0); MCHC 31.2 g/dL (31.0-37.0); MCV 91.1 fL (80.0-100.0); Mean Platelet Volume 9.3; Platelet Count 125 k/uL (150-450); RBC 4.28 m/uL (3.80-5.40); RDW 14.8 % (11.5-15.5); WBC 3.4 k/uL (3.8-10.6)
[2017-04-30] MEDS ORDERED: Potassium Replacement Protocol 1 EACH MISC MISCELLANE PRN (07:39)
[2017-04-30] MEDS ORDERED: POTASSIUM CHLORIDE ORAL LIQUID 40 MEQ/30 ML CUP PO SCH (08:00)
--- NOTE | 2017-04-30 08:03 | P.PN ---
Subjective Progress Note Date: 04/30/17 Principal diagnosis: Influenza Patient is an 89-year-old female with a past medical history of hypertension, diabetes, hypothyroidism, and atrial fibrillation who presented to the ER with complaints of body aches and productive cough. In the ER she underwent an extensive evaluation. On her initial vital signs she was found to be head lightly hypertensive with a systolic blood pressure of 174 and a temperature of 100.9. Chest x-ray showed a new minimal infiltrate in the periphery of the left mid lung. Laboratory analysis showed a mildly elevated troponin at 0.03 and an elevated glucose at 178. Urinalysis showed possible urinary tract infection. Her influenza swab demonstrated influenza A. She was started on Tamiflu, Levaquin, and IV fluids. She was given a dose of aspirin. She was admitted to the selective care unit for further monitoring. Her EKG was unremarkable. Her troponins remained flat and were not consistent with coronary disease and felt to be secondary to strain from Influena pneumonia. By the morning of 04/30 she was feeling much improved. Patient seen and examined at bedside. Appetite is starting to return. Her SOB is improving. She continues to have a cough but feels that is getting better too. She denies any chest pain. Continues to have body aches and stiffness is increasing. Feeling much improved. Objective - Vital Signs Vital signs: Vital Signs Temp 97.8 F 04/30/17 04:00 Pulse 82 04/30/17 04:00 Resp 18 04/30/17 04:00 BP 139/96 04/30/17 04:00 Pulse Ox 96 04/30/17 04:00 Intake & Output 04/29/17 04/30/17 04/30/17 18:59 06:59 18:59 Intake Total 240 900 Output Total 1100 Balance -860 900 Weight 98.3 kg Intake: IV 900 Sodium Chloride 0.9% 1, 900 000 ml @ 100 mls/hr IV . Q10H [facility] Rx#:[id number] Oral 240 Output: Urine 1100 Other: Voiding Method Bedside Commode # Voids 1 # Bowel Movements 1 - Exam General: ill appearing, no distress, appears at stated age, obese Derm: warm, dry Head: atraumatic, normocephalic, symmetric, hard of hearing Eyes: EOMI, no lid lag, anicteric sclera Mouth: no lip lesion, mucus membranes moist Cardiovascular: S1S2 reg, no murmur, positive posterior tibial pulse bilateral, Lungs: rhonchi right base , no accessory muscle use Abdominal: soft, nontender to palpation, no guarding, no appreciable organomegaly Ext: no gross muscle atrophy, trace edema, no contractures Neuro: CN II-XI grossly intact, no focal neuro deficits Psych: Alert, oriented, appropriate affect - Labs CBC & Chem 7: 04/30/17 05:57 04/30/17 05:57 Labs: Abnormal Lab Results - Last 24 Hours (Table) 04/29/17 04/29/17 04/29/17 Range/Units 03:02 08:58 11:38 WBC (3.8-10.6) k/uL Plt Count (150-450) k/uL Potassium (3.5-5.1) mmol/L BUN (7-17) mg/dL Glucose (74-99) mg/dL POC Glucose (mg/dL) 143 H (75-99) mg/dL Hemoglobin A1c 6.8 H (4.0-6.0) % Troponin I 0.048 H* (0.000-0.034) ng/mL Total Protein (6.3-8.2) g/dL Albumin (3.5-5.0) g/dL 04/29/17 04/30/17 04/30/17 Range/Units 16:22 05:57 05:57 WBC 3.4 L (3.8-10.6) k/uL Plt Count 125 L (150-450) k/uL Potassium 3.4 L (3.5-5.1) mmol/L BUN 19 H (7-17) mg/dL Glucose 123 H (74-99) mg/dL POC Glucose (mg/dL) 126 H (75-99) mg/dL Hemoglobin A1c (4.0-6.0) % Troponin I (0.000-0.034) ng/mL Total Protein 5.7 L (6.3-8.2) g/dL Albumin 3.0 L (3.5-5.0) g/dL 04/30/17 Range/Units 06:06 WBC (3.8-10.6) k/uL Plt Count (150-450) k/uL Potassium (3.5-5.1) mmol/L BUN (7-17) mg/dL Glucose (74-99) mg/dL POC Glucose (mg/dL) 121 H (75-99) mg/dL Hemoglobin A1c (4.0-6.0) % Troponin I (0.000-0.034) ng/mL Total Protein (6.3-8.2) g/dL Albumin (3.5-5.0) g/dL Microbiology - Last 24 Hours (Table) 04/28/17 21:00 Blood Culture - Preliminary Blood No Growth after 24 hours 04/28/17 21:45 Urine Culture - Preliminary Urine,Voided Assessment and Plan Assessment: Influenza A with viral pneumonia -Continue with Tamiflu D#2 - D/C IV fluids -Pain control -Albuterol as needed - await repeat CXR Probable urinary tract infection -Await urine culture - Continue Levaquin Mildly positive troponins likely stress-induced due to illness -Troponin elevation not consistent with myocardial injury -Attempt to obtain records from Dr. Bellamy's office to review recent echocardiogram Atrial fibrillation, rate controlled -Not on any rate controlling medications -Continue with eliqucristobal Diabetes mellitus type 2 - Hold piaglitazone - A1C 6.8 - SSI Hypertensive urgency, resolved - continue home meds - prn hydalazine - follow BP Hypothyroidism - continue with synthroid Transfer to med/surg DVT prophylaxis: farnaz Discussed with: Patient and nursing Anticipated discharge: [address]:home A total of 35 minutes was spent on the care of this complex patient more than 50 % of the time was spent in counseling and care coordination.
--- NOTE | 2017-04-30 08:57 | XR ---
EXAMINATION TYPE: XR chest 1V portable DATE OF EXAM: 04/30/2017 COMPARISON: 04/28/2018 HISTORY: Shortness of breath TECHNIQUE: Single portable upright view of the chest is submitted. FINDINGS: Scattered senescent parenchymal changes noted. Hyperinflation compatible with COPD. No evidence for infiltrate. No evidence for atelectasis. Heart size is stable. Mediastinal structures are stable and grossly unremarkable. No evidence for hilar prominence. Degenerative changes dorsal spine. IMPRESSION: 1. No evidence for acute pulmonary disease.
[2017-04-30] MEDS ORDERED: LEVOFLOXACIN 750MG-D5W PMX 750 MG in DEXTROSE/WATER 1 150ML.BAG IVPB SCH (09:00)
[2017-04-30] MEDS: OXYBUTYNIN XL 5 MG TAB.ER.24 PO SCH (09:20)
[2017-04-30] MEDS: LISINOPRIL-HCTZ 20-25 MG 1 EACH TAB PO SCH (09:20)
[2017-04-30] MEDS: CHOLECALCIFEROL 1,000 UNIT TAB PO SCH (09:21)
[2017-04-30] MEDS: APIXABAN 2.5 MG TABLET PO SCH ×2 (09:21→20:18)
[2017-04-30] MEDS: GABAPENTIN 100 MG CAP PO SCH ×3 (09:21→20:18)
[2017-04-30] MEDS: PANTOPRAZOLE 40 MG TABLET PO SCH (09:22)
[2017-04-30] MEDS: MAGNESIUM OXIDE 400 MG TAB PO SCH (09:22)
[2017-04-30] MEDS: ASCORBIC ACID 500 MG TAB PO SCH (09:22)
[2017-04-30] MEDS: LEVOTHYROXINE 25 MCG TAB PO SCH (11:53)
[2017-04-30] MEDS: POTASSIUM CHLORIDE ORAL LIQUID 40 MEQ/30 ML CUP PO SCH ×2 (11:54→12:03)
[2017-04-30] MEDS: OSELTAMIVIR 60 MG/10 ML ORAL SYRINGE PO SCH ×2 (12:02→20:25)
[2017-04-30] MEDS: ACETAMINOPHEN TAB 325 MG TAB PO PRN ×2 (12:07→23:43)
[2017-04-30 12:18] LABS: Glucose,Whole Blood 128 mg/dL (75-99)
[2017-04-30 17:33] LABS: Glucose,Whole Blood 103 mg/dL (75-99)
[2017-04-30 23:55] LABS: Glucose,Whole Blood 117 mg/dL (75-99)
[2017-05-01 07:23] VITALS: RESP 16
[2017-05-01 08:00] LABS: Glucose,Whole Blood 133 mg/dL (75-99)
[2017-05-01] MEDS: OSELTAMIVIR 60 MG/10 ML ORAL SYRINGE PO SCH (08:34)
[2017-05-01] MEDS: LEVOTHYROXINE 25 MCG TAB PO SCH (08:34)
[2017-05-01] MEDS: ASCORBIC ACID 500 MG TAB PO SCH (08:34)
[2017-05-01] MEDS: GABAPENTIN 100 MG CAP PO SCH ×2 (08:34→16:00)
[2017-05-01] MEDS: APIXABAN 2.5 MG TABLET PO SCH (08:34)
[2017-05-01] MEDS: MAGNESIUM OXIDE 400 MG TAB PO SCH (08:34)
[2017-05-01] MEDS: LISINOPRIL-HCTZ 20-25 MG 1 EACH TAB PO SCH (08:34)
[2017-05-01] MEDS: PANTOPRAZOLE 40 MG TABLET PO SCH (08:35)
[2017-05-01] MEDS: INSULIN ASPART 100 UNIT/ML 1 ML 10 ML VIAL SQ SCH ×3 (08:35→17:28)
[2017-05-01] MEDS: CHOLECALCIFEROL 1,000 UNIT TAB PO SCH (08:35)
[2017-05-01] MEDS: OXYBUTYNIN XL 5 MG TAB.ER.24 PO SCH (08:35)
[2017-05-01 08:59] LABS: MCHC 32.5 g/dL (31.0-37.0); Mean Platelet Volume 9.5; Platelet Count 136 k/uL (150-450); RBC 4.49 m/uL (3.80-5.40); RDW 14.7 % (11.5-15.5); WBC 3.3 k/uL (3.8-10.6)
[2017-05-01 09:16] LABS: Anion Gap 10 mmol/L; Blood Urea Nitrogen 18 mg/dL (7-17); Calcium 9.3 mg/dL (8.4-10.2); Carbon Dioxide 25 mmol/L (22-30); Chloride 105 mmol/L (98-107); Glucose 145 mg/dL (74-99); Magnesium 1.6 mg/dL (1.6-2.3); Potassium 3.7 mmol/L (3.5-5.1); Sodium 140 mmol/L (137-145)
[2017-05-01 11:33] LABS: Glucose,Whole Blood 188 mg/dL (75-99)
--- NOTE | 2017-05-01 12:09 | P.DS ---
Providers Date of admission: 04/28/17 22:28 Expected date of discharge: 05/01/17 Attending physician: Jeremias Bocanegra MD Primary care physician: Neena Bellamy MD - Discharge Diagnosis(es) (1) Influenza Current Visit: Yes Status: Acute (2) Viral pneumonia Current Visit: Yes Status: Acute (3) Urinary tract infection Current Visit: Yes Status: Acute (4) Elevated troponin Current Visit: Yes Status: Acute (5) Hypertensive urgency Current Visit: Yes Status: Acute (6) Thrombocytopenia Current Visit: Yes Status: Acute (7) Afib Current Visit: No Status: Chronic Hospital Course: Patient is an 89-year-old female with a past medical history of hypertension, diabetes, hypothyroidism, and atrial fibrillation who presented to the ER with complaints of body aches and productive cough. In the ER she underwent an extensive evaluation. On her initial vital signs she was found to be head lightly hypertensive with a systolic blood pressure of 174 and a temperature of 100.9. Chest x-ray showed a new minimal infiltrate in the periphery of the left mid lung. Laboratory analysis showed a mildly elevated troponin at 0.03 and an elevated glucose at 178. Urinalysis showed possible urinary tract infection. Her influenza swab demonstrated influenza A. She was started on Tamiflu, Levaquin, and IV fluids. She was given a dose of aspirin. She was admitted to the selective care unit for further monitoring. Her EKG was unremarkable. Her troponins remained flat and were not consistent with coronary disease and felt to be secondary to strain from Influena pneumonia. By the morning of 04/30 she was feeling much improved. Her repeat CXR showed resolution of her pneumonia. Her muscle aches have greatly improved, her cough had improved, and her shortness of breath was resolved. She felt as though she could manage at home. We did notice some thrombocytopenia during her hospitalization but this remains stable at around 130. Urine culture ultimately resulted as E. coli which was resistant to Levaquin. She therefore will complete a course of Keflex at home which it was sensitive to. She also will complete her 5 day course of Tamiflu. She was determined stable for discharge home. She will have home health. She'll also follow-up with Dr. Bellamy in 2-3 days. Patient seen and examined at bedside. Breathing is improving daily, cough is minimizing, her back pain is actually better and are better than at home. She does complain of poor sleep habits here. She has not been eating much last several days where her appetite is increasing. She will have home health and she lives with her granddaughter and great-grandchildren whom will be there at night. Vital signs reviewed and stable. General: ill appearing, no distress, appears at stated age Derm: warm, dry Head: atraumatic, normocephalic, symmetric Eyes: EOMI, no lid lag, anicteric sclera Mouth: no lip lesion, mucus membranes moist Cardiovascular: S1S2 reg, no murmur, positive posterior tibial pulse bilateral, Lungs: CTA bilateral, no rhonchi, no rales , no accessory muscle use Abdominal: soft, nontender to palpation, no guarding, no appreciable organomegaly Ext: no gross muscle atrophy, no edema, no contractures Neuro: CN II-XI grossly intact, no focal neuro deficits Psych: Alert, oriented, appropriate affect A total of 35 minutes of time were spent preparing this complex discharge summary . Pertinent Studies: CXR- New minimal infiltrate in the left mid lung. Patient Condition at Discharge: Stable Plan - Discharge Summary New Discharge Prescriptions: New Cephalexin [Keflex] 500 mg PO Q12HR #10 cap Oseltamivir [Tamiflu] 75 mg PO Q12HR #6 cap Continue oxyCODONE-APAP 10-325MG [Percocet 10-325 mg] 0.5 - 1 tab PO TID PRN PRN Reason: BACK PAIN Tolterodine ER [Detrol LA] 4 mg PO DAILY Pioglitazone HCl 15 mg PO DAILY Cholecalciferol [Vitamin D3] 1,000 unit PO DAILY Ascorbic Acid [Vitamin C] 500 mg PO DAILY Omeprazole 20 mg PO DAILY Magnesium Oxide [Mag-Ox] 250 mg PO DAILY Levothyroxine Sodium [Synthroid] 25 mcg PO DAILY Gabapentin [Neurontin] 300 mg PO TID Enalapril/Hydrochlorothiazide [Enalapril-Hctz 10-25 mg Tablet] 1 tab PO DAILY Apixaban [Eliquis] 2.5 mg PO BID Discharge Medication List Apixaban [Eliquis] 2.5 mg PO BID 04/28/17 [History] Ascorbic Acid [Vitamin C] 500 mg PO DAILY 04/28/17 [History] Cholecalciferol [Vitamin D3] 1,000 unit PO DAILY 04/28/17 [History] Enalapril/Hydrochlorothiazide [Enalapril-Hctz 10-25 mg Tablet] 1 tab PO DAILY [History] Gabapentin [Neurontin] 300 mg PO TID 04/28/17 [History] Levothyroxine Sodium [Synthroid] 25 mcg PO DAILY 04/28/17 [History] Magnesium Oxide [Mag-Ox] 250 mg PO DAILY 04/28/17 [History] Omeprazole 20 mg PO DAILY 04/28/17 [History] Pioglitazone HCl 15 mg PO DAILY 04/28/17 [History] Tolterodine ER [Detrol LA] 4 mg PO DAILY 04/28/17 [History] oxyCODONE-APAP 10-325MG [Percocet 10-325 mg] 0.5 - 1 tab PO TID PRN 04/28/17 [ History] Cephalexin [Keflex] 500 mg PO Q12HR #10 cap 05/01/17 [Rx] Oseltamivir [Tamiflu] 75 mg PO Q12HR #6 cap 05/01/17 [Rx] Follow up Appointment(s)/Referral(s): Neena Bellamy MD [Primary Care Provider] - 1 Week (Office closed, please call for appointment. ) [facility], [NON-STAFF] - As Needed Patient Instructions/Handouts: Urinary Tract Infection in Women (DC), Type 2 Diabetes in Adults (DC), Influenza (DC) Activity/Diet/Wound Care/Special Instructions: Cardiac, diabetic diet. Diabetic folder given. Activity as tolerated. Discharge Disposition: HOME WITH HOME HEALTH SERVICES
[2017-05-01 15:29] VITALS: BP 168/76; PULSE 76; TEMP 98.7
[2017-05-01 18:07] LABS: Glucose,Whole Blood 123 mg/dL (75-99)
[2017-05-02] MEDS ORDERED: LEVOFLOXACIN 750 MG TAB PO SCH (09:00)
== END 2017-05-01 17:56 | disposition home health service (06) | DRG 194 ==
LOC: EC 19:53 → 6SEL 22:28 → 4MS4W 04-30 09:52
PROVIDERS: ADMIT Internal Medicine; ATTEND Internal Medicine
DX: J10.08 Influenza due to other identified influenza virus with other specified pneumonia (principal); N39.0 Urinary tract infection, site not specified; D69.6 Thrombocytopenia, unspecified; I48.2 Chronic atrial fibrillation; J12.89 Other viral pneumonia; E11.9 Type 2 diabetes mellitus without complications; G89.29 Other chronic pain; M54.9 Dorsalgia, unspecified; I16.0 Hypertensive urgency; K21.9 Gastro-esophageal reflux disease without esophagitis; I10 Essential (primary) hypertension; E03.9 Hypothyroidism, unspecified; Z87.891 Personal history of nicotine dependence; Z96.651 Presence of right artificial knee joint; Z90.49 Acquired absence of other specified parts of digestive tract; Z79.01 Long term (current) use of anticoagulants; Z79.84 Long term (current) use of oral hypoglycemic drugs; Z79.899 Other long term (current) drug therapy; Z91.048 Other nonmedicinal substance allergy status
CPT/HCPCS: 36415; 71045; 71046; 80048; 80053; 81001; 82550; 82553; 83036; 83605; 83735; 84100; 84484; 85025; 85027; 85610; 85730; 87040; 87077; 87086; 87186; 87502; 93005; 96361; 96365; 99291

== ENCOUNTER 2017-05-12 15:39 | Inpatient (IN) | payer MEDICARE, BC ==
--- NOTE | 2017-05-12 16:59 | ED ---
Nausea/Vomiting/Diarrhea HPI - General Chief complaint: Nausea/Vomiting/Diarrhea Stated complaint: vomiting/diarrhea Time Seen by Provider: 05/12/17 16:43 Source: family Mode of arrival: wheelchair Limitations: no limitations - History of Present Illness Initial comments: Patient is a 89-year-old female that presents with nausea/vomiting/diarrhea and headache. Patient states that she was seen here and admitted for influenza and since then, she has not been doing well. However, the symptoms of nausea/ vomiting/diarrhea started today and is not associated with abdominal pain. She also denies any fevers or chills and states that she had a headache that suddenly started 2 days ago as well as left neck pain. She denies any manipulation and states that she is unsure whether she had a headache this bad in the past. - Related Data Home Medications Medication Instructions Recorded Confirmed Apixaban [Eliquis] 2.5 mg PO BID 04/28/17 05/12/17 Ascorbic Acid [Vitamin C] 500 mg PO DAILY 04/28/17 05/12/17 Cholecalciferol [Vitamin D3] 1,000 unit PO DAILY 04/28/17 05/12/17 Enalapril/Hydrochlorothiazide 1 tab PO DAILY 04/28/17 05/12/17 [Enalapril-Hctz 10-25 mg Tablet] Gabapentin [Neurontin] 300 mg PO TID 04/28/17 05/12/17 Levothyroxine Sodium [Synthroid] 25 mcg PO DAILY 04/28/17 05/12/17 Magnesium Oxide [Mag-Ox] 250 mg PO DAILY 04/28/17 05/12/17 Omeprazole 20 mg PO DAILY 04/28/17 05/12/17 Pioglitazone HCl 15 mg PO DAILY 04/28/17 05/12/17 Tolterodine ER [Detrol LA] 4 mg PO DAILY 04/28/17 05/12/17 oxyCODONE-APAP 10-325MG [Percocet 0.5 - 1 tab PO TID PRN 04/28/17 05/12/17 10-325 mg] Allergies Allergy/AdvReac Type Severity Reaction Status Date / Time adhesive tape Allergy Itching Verified 05/12/17 17:46 Review of Systems ROS Statement: Those systems with pertinent positive or pertinent negative responses have been documented in the HPI. Constitutional: Negative for chills, fatigue and fever. HENT: Negative for congestion. Respiratory: Negative for chest tightness, shortness of breath and wheezing. Cardiovascular: Negative for chest pain and palpitations. Gastrointestinal: Negative for abdominal pain. Positive for abdominal distention, diarrhea, nausea and vomiting. Genitourinary: Negative for dysuria. Musculoskeletal: Negative for back pain, and neck stiffness. Positive for left- sided neck pain Skin: Negative for color change. Neurological: Negative for dizziness, speech difficulty, weakness and light- headedness. Positive for headache Psychiatric/Behavioral: Negative for agitation and confusion. The patient is not nervous/anxious. ROS Other: All systems not noted in ROS Statement are negative. Past Medical History Past Medical History: Atrial Fibrillation, Diabetes Mellitus, GERD/Reflux, Hypertension Additional Past Medical History / Comment(s): kidney disease. hypothyroidism. History of Any Multi-Drug Resistant Organisms: None Reported Past Surgical History: Cholecystectomy Additional Past Surgical History / Comment(s): back. right knee replacement. bilateral feet. Past Anesthesia/Blood Transfusion Reactions: No Reported Reaction Past Psychological History: No Psychological Hx Reported Smoking Status: Former smoker Past Alcohol Use History: None Reported Past Drug Use History: None Reported General Exam - General Exam Comments Initial Comments: Physical Exam Constitutional: Pt is oriented to person, place, and time. Pt appears well- developed and well-nourished. No distress. HENT: Head: Normocephalic and atraumatic. Eyes: EOM are normal. Neck: Normal range of motion. Neck supple. Cardiovascular: Irregularly irregular rhythm,, S1 normal, S2 normal and normal heart sounds. Exam reveals no gallop and no friction rub. No murmur heard. Pulmonary/Chest: Effort normal and breath sounds normal. No tachypnea and no bradypnea. No respiratory distress. No wheezes or rales noted. Abdominal: Soft. Bowel sounds are normal. Pt exhibits no shifting dullness, no distension, no pulsatile liver, no fluid wave, no abdominal bruit and no ascites. Moderate tenderness to palpation of the epigastric and left upper quadrant region. There is no rigidity, no rebound, no guarding, no tenderness at McBurney's point and negative Gipson's sign. Musculoskeletal: Normal range of motion. Neurological: Pt is alert and oriented to person, place, and time. No cranial nerve deficit. Negative Brudzinski and Kernig Skin: Skin is warm and dry. No rash noted. He is not diaphoretic. No erythema. No pallor. Psychiatric: He has a normal mood and affect. His behavior is normal. Thought content normal. Limitations: no limitations Course Vital Signs 05/12/17 05/12/17 05/12/17 16:29 17:56 19:48 Temperature 99.1 F 98.2 F Pulse Rate 83 84 69 Respiratory 16 18 18 Rate Blood Pressure 177/94 164/62 187/92 O2 Sat by Pulse 97 90 L 97 Oximetry - Reevaluation(s) Reevaluation #1: 05/12/17 19:26 evaluated the patient at bedside and she continues to state that she feels nauseous as well as headache. CT of the abdomen as well as CT head showed no evidence of acute pathology but did have findings consistent with diarrhea and the CT abdomen. 05/12/17 20:35 Medical Decision Making - Medical Decision Making Laboratory studies revealed that the urine was mildly elevated at 24 and electrolytes showed no significant derangements. However, alkaline phosphatase was elevated at 129 and is unsure of this is an incidental finding. Cardiac evaluation also revealed the troponin was negative and EKG showed no significant ST depressions or elevations. Lipase was within normal limits and C. diff sample was also negative. However, there is concern about sending the patient home as she is 89 years old and continues to have diarrhea in the emergency department. There is concerned that she could quickly decompensate and she continues to complain of headache as well as nausea at time of disposition. Because CT head and neck were negative for acute pathology, patient was given Toradol as well as other medications such as Benadryl and Compazine. Explained all labs and diagnostic test results and that we will admit patient to hospital. Pt is agreeable to plan and case has been discussed with Dr. Bocanegra and they agree to accept the pt. - Lab Data Result diagrams: 05/12/17 17:13 05/12/17 17:13 Lab Results 05/12/17 05/12/17 05/12/17 Range/Units 17:13 17:13 17:13 WBC 7.5 (3.8-10.6) k/uL RBC 4.67 (3.80-5.40) m/uL Hgb 13.4 (11.4-16.0) gm/dL Hct 42.1 (34.0-46.0) % MCV 90.1 (80.0-100.0) fL MCH 28.7 (25.0-35.0) pg MCHC 31.9 (31.0-37.0) g/dL RDW 13.5 (11.5-15.5) % Plt Count 189 (150-450) k/uL Neutrophils % 88 % Lymphocytes % 5 % Monocytes % 5 % Eosinophils % 1 % Basophils % 0 % Neutrophils # 6.6 (1.3-7.7) k/uL Lymphocytes # 0.4 L (1.0-4.8) k/uL Monocytes # 0.4 (0-1.0) k/uL Eosinophils # 0.0 (0-0.7) k/uL Basophils # 0.0 (0-0.2) k/uL Sodium 141 (137-145) mmol/L Potassium 4.1 (3.5-5.1) mmol/L Chloride 105 (98-107) mmol/L Carbon Dioxide 23 (22-30) mmol/L Anion Gap 13 mmol/L BUN 24 H (7-17) mg/dL Creatinine 1.00 (0.52-1.04) mg/dL Est GFR (MDRD) Af Amer >60 (>60 ml/min/1.73 sqM) Est GFR (MDRD) Non-Af 52 (>60 ml/min/1.73 sqM) Glucose 161 H (74-99) mg/dL Calcium 10.0 (8.4-10.2) mg/dL Total Bilirubin 0.5 (0.2-1.3) mg/dL AST 25 (14-36) U/L ALT 26 (9-52) U/L Alkaline Phosphatase 129 H (38-126) U/L Troponin I 0.018 (0.000-0.034) ng/mL Total Protein 7.1 (6.3-8.2) g/dL Albumin 4.1 (3.5-5.0) g/dL Lipase 86 (23-300) U/L Stool Occult Blood (Negative) C. difficile (EIA) Intrp (Negative) 05/12/17 05/12/17 Range/Units 17:13 17:13 WBC (3.8-10.6) k/uL RBC (3.80-5.40) m/uL Hgb (11.4-16.0) gm/dL Hct (34.0-46.0) % MCV (80.0-100.0) fL MCH (25.0-35.0) pg MCHC (31.0-37.0) g/dL RDW (11.5-15.5) % Plt Count (150-450) k/uL Neutrophils % % Lymphocytes % % Monocytes % % Eosinophils % % Basophils % % Neutrophils # (1.3-7.7) k/uL Lymphocytes # (1.0-4.8) k/uL Monocytes # (0-1.0) k/uL Eosinophils # (0-0.7) k/uL Basophils # (0-0.2) k/uL Sodium (137-145) mmol/L Potassium (3.5-5.1) mmol/L Chloride (98-107) mmol/L Carbon Dioxide (22-30) mmol/L Anion Gap mmol/L BUN (7-17) mg/dL Creatinine (0.52-1.04) mg/dL Est GFR (MDRD) Af Amer (>60 ml/min/1.73 sqM) Est GFR (MDRD) Non-Af (>60 ml/min/1.73 sqM) Glucose (74-99) mg/dL Calcium (8.4-10.2) mg/dL Total Bilirubin (0.2-1.3) mg/dL AST (14-36) U/L ALT (9-52) U/L Alkaline Phosphatase (38-126) U/L Troponin I (0.000-0.034) ng/mL Total Protein (6.3-8.2) g/dL Albumin (3.5-5.0) g/dL Lipase (23-300) U/L Stool Occult Blood Negative (Negative) C. difficile (EIA) Intrp Negative (Negative) - EKG Data -: EKG Interpreted by Me EKG Comments: EKG shows normal sinus rhythm with a rate of 84 bpm and a IA interval 144 ms. QRS duration is 88 and a QTC of 472 ms Disposition Clinical Impression: Dehydration, Nausea vomiting and diarrhea Disposition: ADMITTED IP TO THIS [facility] Condition: Fair Referrals: Neena Bellamy MD [Primary Care Provider] - 1-2 days Decision to Admit Reason: Admit from EC Decision Date: 05/12/17 Decision Time: 20:39
[2017-05-12] MEDS ORDERED: ONDANSETRON 4 MG/2 ML VIAL IVP STA (17:06)
[2017-05-12] MEDS ORDERED: RX INFO: IV CONTRAST WAS GIVEN 1 EACH MISC MISCELLANE PRN ×2 (17:06→17:09)
[2017-05-12] MEDS ORDERED: MORPHINE SULFATE 5 MG/ML SYRINGE IV STA (17:06)
[2017-05-12] MEDS ORDERED: SODIUM CHLORIDE 0.9% 1,000 ML IV STA ×3 (17:06→20:05)
[2017-05-12 17:26] LABS: Basophils % (A) 0 %; Eosinophils % (A) 1 %; HCT 42.1 % (34.0-46.0); HGB 13.4 gm/dL (11.4-16.0); Lymphocytes # (A) 0.4 k/uL (1.0-4.8); Lymphocytes % (A) 5 %; MCH 28.7 pg (25.0-35.0); MCHC 31.9 g/dL (31.0-37.0); MCV 90.1 fL (80.0-100.0); Mean Platelet Volume 8.2; Monocytes # (A) 0.4 k/uL (0-1.0); Monocytes % (A) 5 %; Neutrophils # (A) 6.6 k/uL (1.3-7.7); Neutrophils % (A) 88 %; Platelet Count 189 k/uL (150-450); RBC 4.67 m/uL (3.80-5.40); RDW 13.5 % (11.5-15.5); WBC 7.5 k/uL (3.8-10.6)
[2017-05-12 17:32] LABS: ALT 26 U/L (9-52); AST 25 U/L (14-36); Albumin 4.1 g/dL (3.5-5.0); Alkaline Phosphatase 129 U/L (38-126); Anion Gap 13 mmol/L; Blood Urea Nitrogen 24 mg/dL (7-17); Carbon Dioxide 23 mmol/L (22-30); Chloride 105 mmol/L (98-107); Glucose 161 mg/dL (74-99); Lipase 86 U/L (23-300); Sodium 141 mmol/L (137-145); Total Bilirubin 0.5 mg/dL (0.2-1.3); Total Protein 7.1 g/dL (6.3-8.2)
[2017-05-12 17:33] LABS: Potassium 4.1 mmol/L (3.5-5.1)
--- NOTE | 2017-05-12 18:57 | CT ---
EXAMINATION TYPE: CT abdomen pelvis w con DATE OF EXAM: 05/12/2017 COMPARISON: NONE HISTORY: Nausea, vomiting and diarrhea today. CT DLP: 996 mGycm Automated exposure control for dose reduction was used. TECHNIQUE: Helical acquisition of images was performed from the lung bases through the pelvis. CONTRAST: Performed without Oral Contrast and with IV Contrast, patient injected with 65 mL of Visipaque 320. FINDINGS: The lung bases are clear of consolidation. There is mild linear density consistent with scarring or s ubsegmental atelectasis. There is no pleural effusion. There is a large hiatal hernia that contains f luid. There is no pericardial effusion. Liver shows no focal defect. There are clips from cholecystec matthew. Bile ducts are not dilated. Spleen and pancreas appear normal. There is no adrenal mass. There are left renal cortical cysts that measure up to 2 cm. There is no hydronephrosis. There is fluid thr oughout the large bowel. I see no intestinal wall thickening. There are few sigmoid diverticula. Ther e is no sign of diverticulitis. Appendix is not seen. There is no sign of appendicitis. There is no r etroperitoneal adenopathy. Abdominal aorta is atheromatous. There is a first-degree L4-5 spondylolist hesis. There is multilevel lower lumbar laminectomy defect noted. I see no focal bone destruction. Th ere is multilevel spondylotic change in the lumbar spine. There is 20% wedging of T8 vertebra. Uterus is anteverted. Bladder distends smoothly. There is no evidence of a pelvic mass. IMPRESSION: LARGE BOWEL FLUID CONSISTENT WITH DIARRHEA. ATHETOID VASCULAR DISEASE. LEFT RENAL CORTICAL CYSTS. MIL D FIBROTIC CHANGE AT THE LUNG BASES. LARGE HIATAL HERNIA. MILD SIGMOID DIVERTICULOSIS. OLD T8 DENIZ JOHN FRACTURE. 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
--- NOTE | 2017-05-12 19:12 | CT ---
EXAMINATION TYPE: CT angio head neck DATE OF EXAM: 05/12/2017 HISTORY: Headache. COMPARISON: NONE CT DLP: 546 mGycm. Automated Exposure Control for Dose Reduction was Utilized. TECHNIQUE: CTA scan of the neck is performed with IV Contrast, patient injected with 65 mL of Visipa que 320, axial images are obtained, coronal and sagittal reformatted images are reviewed. Three-D rec onstructed images are created on an independent workstation and reviewed. 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 The common carotid arter ies are widely patent. There is minimal calcification at the carotid artery bifurcations. There is no evidence of carotid stenosis. There is bilateral contrast opacification of the vertebral arteries. L eft is larger than the right. There is patency of the vertebrobasilar artery system. There is arterial flow in the anterior middle and posterior cerebral arteries. I see no sign of steno sis. There is no evidence of aneurysm or neovascularity. There is normal contrast opacification of th e venous sinuses. There is no mass effect. 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 No evidence of carotid stenosis. Negative CT a ngiogram of the head and neck.
[2017-05-12] MEDS ORDERED: diphenhydrAMINE 50 MG/ML 1 ML VIAL IVP PRN (19:45)
[2017-05-12] MEDS ORDERED: KETOROLAC 30 MG/ML 1 ML VIAL IVP STA (19:45)
[2017-05-12] MEDS ORDERED: PROCHLORPERAZINE 5 MG TAB PO STA (19:45)
[2017-05-12] MEDS ORDERED: SODIUM CHLORIDE 0.9% 500 ML IV STA (20:05)
[2017-05-12] MEDS ORDERED: NALOXONE 0.4 MG/ML 1 ML VIAL IV PRN (20:39)
[2017-05-12] MEDS ORDERED: hydrALAZINE HCL 20 MG/ML 1 ML VIAL IVP STA (20:49)
[2017-05-12 21:16] LABS: Appearance,Urine Clear (Clear); Bacteria,Urine Rare /hpf; Bilirubin,Urine Negative (Negative); Blood,Urine Negative (Negative); Color,Urine Yellow; Glucose,Urine (UA) Negative (Negative); Ketones,Urine Negative (Negative); Leukocyte Esterase,Urine Negative (Negative); Nitrite,Urine Negative (Negative); Protein,Urine 1+ (Negative); RBC,Urine 1 /hpf (0-5); Urobilinogen,Urine <2.0 mg/dL (<2.0); WBC,Urine 1 /hpf (0-5)
[2017-05-12 21:44] LABS: Specific Gravity,Urine >1.050 (1.001-1.035)
--- NOTE | 2017-05-12 23:59 | P.HPIM ---
History of Present Illness H&P Date: 05/12/17 Chief Complaint: intractable nausea and vomiting 89 year old female with history of afib on anticoagulation. Patient presented due to 1 day history of intractable nausea and vomiting, associated with diarrhea, she denies any abd pain, or fever, or chills. Her vomiting is consistent of stomach juices yellow in color non bloody no bilious , no coffee ground vomiting. Her diarrhea just brown and watery, non bloody no melena. She denies any recent travel or sick contacts. She denies any unsanitary food or drink. She is still making urine however, she feels generalized weakness and headaches. Initial workup in the ED including imaging was unremarkable except for fluid content in the colon on abd CT, and labs indicating some degree of dehydration. Patient admitted for observation due to poor PO intake and IV hydration Review of Systems Constitutional: Patient denies fever, denies chills, denies night sweating, denies significant weight changes Eyes: Patient denies visual changes, denies eye pain ENT: Patient reports left ear fulless, denies rhinorrhea, denies sore throat Cardiovascular: Patient denies chest pain, denies exertional dyspnea, denies peripheral leg edema, denies orthopnea, denies paroxysmal nocturnal dyspnea Respiratory:Patient reports lingering cough since diagnosis with flu, denies wheezing, denies shortness of breath Gastrointestinal: as per HPI Genitourinary: Patient denies dysuria, denies hematuria, denies changes in urinary habits, denies genital lesions Musculoskeletal: Patient denies muscle pain, denies joint pain Psychiatric: Patient denies changes in mood or memory, denies suicidal ideation, denies anxiety Endocrine: Patient denies heat intolerance, denies cold intolerance, denies excessive thirst, denies polyuria Neurological: Patient denies focal neurologic deficits, denies weakness, denies numbness, denies tingling Hem/Lymphatic: Patient denies bleeding tendency, denies bruising, denies swollen lymph glands Allergic/Immun: Patient denies recent allergic reactions Skin: Patient denies rashes, denies pruritis, denies ulcers Past Medical History Past Medical History: Atrial Fibrillation, Diabetes Mellitus, GERD/Reflux, Hypertension Additional Past Medical History / Comment(s): kidney disease. hypothyroidism. History of Any Multi-Drug Resistant Organisms: None Reported Past Surgical History: Cholecystectomy Additional Past Surgical History / Comment(s): back. right knee replacement. bilateral feet. Past Anesthesia/Blood Transfusion Reactions: No Reported Reaction Past Psychological History: No Psychological Hx Reported Smoking Status: Former smoker Past Alcohol Use History: None Reported Past Drug Use History: None Reported - Past Family History family Additional Family Medical History / Comment(s): denies family history of CAD or cancer Medications and Allergies Home Medications Medication Instructions Recorded Confirmed Type Apixaban [Eliquis] 2.5 mg PO BID 04/28/17 05/12/17 History Ascorbic Acid [Vitamin C] 500 mg PO DAILY 04/28/17 05/12/17 History Cholecalciferol [Vitamin D3] 1,000 unit PO DAILY 04/28/17 05/12/17 History Enalapril/Hydrochlorothiazide 1 tab PO DAILY 04/28/17 05/12/17 History [Enalapril-Hctz 10-25 mg Tablet] Gabapentin [Neurontin] 300 mg PO TID 04/28/17 05/12/17 History Levothyroxine Sodium [Synthroid] 25 mcg PO DAILY 04/28/17 05/12/17 History Magnesium Oxide [Mag-Ox] 250 mg PO DAILY 04/28/17 05/12/17 History Omeprazole 20 mg PO DAILY 04/28/17 05/12/17 History Pioglitazone HCl 15 mg PO DAILY 04/28/17 05/12/17 History Tolterodine ER [Detrol LA] 4 mg PO DAILY 04/28/17 05/12/17 History oxyCODONE-APAP 10-325MG [Percocet 0.5 - 1 tab PO TID PRN 04/28/17 05/12/17 History 10-325 mg] Allergies Allergy/AdvReac Type Severity Reaction Status Date / Time adhesive tape Allergy Itching Verified 05/12/17 17:46 Physical Exam Vitals: Vital Signs Temp Pulse Pulse Resp BP BP Pulse Ox 05/12/17 23:43 97.9 F 69 18 156/73 94 L 05/12/17 23:20 97.5 F L 73 18 184/82 96 05/12/17 22:46 84 18 181/92 97 05/12/17 22:20 87 20 184/91 95 05/12/17 21:58 97.1 F L 78 18 193/93 97 05/12/17 20:46 74 18 198/103 96 05/12/17 19:48 98.2 F 69 18 187/92 97 05/12/17 17:56 84 18 164/62 90 L 05/12/17 16:29 99.1 F 83 16 177/94 97 Intake and Output 05/12/17 05/12/17 05/13/17 14:59 22:59 06:59 Output Total 50 Balance -50 Output: Urine 50 Straight 50 Other: Weight 98.883 kg Patient Weight 05/13/17 06:59 Weight 98.883 kg Constitutional: No acute distress, conversant, pleasant Eyes: Anicteric sclerae, moist conjunctiva, no lid-lag Pupils equal round reactive to light ENMT: NC/AT Oropharynx clear, no erythema, exudates Ear exam, demonstrated cerumen impaction over the right ear, and loss of light reflex over the left tympanic memebrane with possible effusion Neck: Supple, FROM, no masses, or JVD No carotid bruits No thyromegaly Lungs: Clear to auscultation Clear to percussion Normal respiratory effort, no accessory muscle use Cardiovascular: Heart regular in rate and rhythm, No murmurs, gallops, or rubs No peripheral edema Abdominal: Soft, slight discomfort to deep palpation of the epigastric region Nontender, no guarding, rebound or rigidity Abdomen moving with respiration hyperactive bowel sounds No hepatomegaly, No splenomegaly No palpable mass No abdominal wall hernia noted Skin: Normal temperature, tone, texture, turgor No induration No subcutaneous nodules No rash, lesions No ulcers Extremities: No digital cyanosis No clubbing Pedal pulses intact and symmetrical Radial pulses intact and symmetrical No calf tenderness Psychiatric: Alert and oriented to person, place and time Appropriate affect fair judgment Neuro Muscles Strength 4/5 in all 4 extremities Sensation to light touch grossly present throughout Cranial nerves II-XII grossly intact No focal sensory deficits Lymphatics: no palpable cervical or supraclavicular , or inguinal lymph nodes Results CBC & Chem 7: 05/12/17 17:13 05/12/17 17:13 Labs: Abnormal Lab Results - Last 24 Hours (Table) 05/12/17 05/12/17 05/12/17 Range/Units 17:13 17:13 20:42 Lymphocytes # 0.4 L (1.0-4.8) k/uL BUN 24 H (7-17) mg/dL Glucose 161 H (74-99) mg/dL Alkaline Phosphatase 129 H (38-126) U/L Ur Specific [place] >1.050 H (1.001-1.035) Urine Protein 1+ H (Negative) Urine Bacteria Rare H (None) /hpf Assessment and Plan Assessment: 89 year old female with recent acute influenza s/p treatment , now presented with 1 day history of intractable nausea, vomiting and diarrhea. Admitted under observation for IVF hydration due to inability to take PO. Plan: #Acute gastroenteritis most likely viral in nature IVF hydration , follow up labs Clear liquid diet in AM, advance as tolerated If diarrhea persists >48 hours, then consider other infectious workup C diff negative # acute dehydration due to acute gastroenteritis Management as above #. Paroxysmal afib on anticoagulation #. Diabetes mellitus Hold oral hypoglycemic agents Switch to Insulin per sliding scale #. Accelerated hypertension asymptomatic Resume home medications Clonidine 0.1 mg PRN for SBP >180 #Hypothyroidism Resume home meds #. DVT PPX On eliquis for afib Surrogate decision-maker: darline Cruz DPOA CODE STATUS:No code, DNR/DNI DVT prophylaxis: on anticoagulation for afib Discussed with: Patient, ER, RN Anticipated discharge: <[address]: home A total of 50 minutes were spent on the care of this complex patient more than 50% of the time was spent in counseling and care coordination.
[2017-05-13] MEDS: GABAPENTIN 300 MG CAP PO SCH ×4 (00:27→21:05)
[2017-05-13] MEDS: oxyCODONE-APAP 5-325MG 1 EACH TAB PO PRN ×2 (04:49→16:11)
[2017-05-13] MEDS: INSULIN ASPART 100 UNIT/ML 1 ML 10 ML VIAL SQ SCH ×4 (07:45→21:06)
[2017-05-13 07:52] LABS: Glucose,Whole Blood 114 mg/dL (75-99)
[2017-05-13] MEDS ORDERED: LISINOPRIL-HCTZ 20-25 MG 1 EACH TAB PO SCH (09:00)
[2017-05-13 09:26] LABS: Basophils % (A) 0 %; Eosinophils % (A) 0 %; HCT 37.2 % (34.0-46.0); HGB 11.3 gm/dL (11.4-16.0); Lymphocytes # (A) 0.4 k/uL (1.0-4.8); Lymphocytes % (A) 7 %; MCHC 30.5 g/dL (31.0-37.0); MCV 91.9 fL (80.0-100.0); Mean Platelet Volume 8.4; Monocytes # (A) 0.5 k/uL (0-1.0); Monocytes % (A) 8 %; Neutrophils # (A) 4.9 k/uL (1.3-7.7); Neutrophils % (A) 82 %; Platelet Count 175 k/uL (150-450); RBC 4.05 m/uL (3.80-5.40); RDW 13.5 % (11.5-15.5)
[2017-05-13] MEDS: LEVOTHYROXINE 25 MCG TAB PO SCH (09:27)
[2017-05-13] MEDS: APIXABAN 2.5 MG TABLET PO SCH ×2 (09:27→20:15)
[2017-05-13] MEDS: MAGNESIUM OXIDE 400 MG TAB PO SCH (09:27)
[2017-05-13] MEDS: traMADol 50 MG TAB PO PRN ×3 (09:28→23:01)
[2017-05-13] MEDS: OXYBUTYNIN XL 5 MG TAB.ER.24 PO SCH (09:28)
[2017-05-13] MEDS: PANTOPRAZOLE 40 MG TABLET PO SCH (09:28)
[2017-05-13 09:48] LABS: ALT 25 U/L (9-52); AST 26 U/L (14-36); Albumin 3.3 g/dL (3.5-5.0); Alkaline Phosphatase 96 U/L (38-126); Anion Gap 9 mmol/L; Blood Urea Nitrogen 21 mg/dL (7-17); Calcium 8.9 mg/dL (8.4-10.2); Carbon Dioxide 23 mmol/L (22-30); Chloride 110 mmol/L (98-107); Glucose 120 mg/dL (74-99); Magnesium 1.6 mg/dL (1.6-2.3); Sodium 142 mmol/L (137-145); Total Bilirubin 0.3 mg/dL (0.2-1.3); Total Protein 5.9 g/dL (6.3-8.2)
--- NOTE | 2017-05-13 12:07 | P.PN ---
Subjective Progress Note Date: 05/13/17 Principal diagnosis: Patient is an 89-year-old female with a history of atrial fibrillation , diabetes mellitus, GERD, and hypertension who presented to the hospital with complaints of intractable nausea, vomiting, and diarrhea. In the ER she underwent an extensive evaluation. Her initial vital signs showed her to be slightly hypertensive with a blood pressure 177/94. Initial laboratory analysis demonstrated slight dehydration. C. diff was negative. Urinalysis was negative. Stool culture and stool for white blood cells were ordered. She was started on IV fluids in the ER. CT of the abdomen and pelvis demonstrated large bowel fluid consistent with diarrhea as well as a left renal cyst, large hiatal hernia, and old T8 compression fracture. She also underwent a CT of the head and neck for headaches which demonstrated an apparent right subclavian area began artery without carotid stenosis. Negative CT angiogram of the head and neck. She was admitted as observation for dehydration and intractable diarrhea. On the morning after admission she continued to have profuse diarrhea. Stool white blood cells came back negative. Patient seen and examined at bedside. She complains of continued headache. She has not had any more nausea or vomiting. She tried eating a Popsicle and had immediate diarrhea. She states any time she is taking anything oral and is having immediate diarrhea. She does not complain of any overt abdominal pain but does complain of some ramping and gurgling. She states her muscles her from vomiting so much yesterday. She denies any chest pain or shortness of breath. She does not feel lightheaded or dizzy. Objective - Vital Signs Vital signs: Vital Signs Temp 99.1 F 05/13/17 07:25 Pulse 91 05/13/17 07:25 Resp 18 05/13/17 07:25 BP 136/67 05/13/17 07:25 Pulse Ox 93 L 05/13/17 07:30 Intake & Output 05/12/17 05/13/17 05/13/17 18:59 06:59 18:59 Output Total 50 Balance -50 Weight 98.883 kg Output: Urine 50 Straight 50 Other: Voiding Method Toilet Bedside Commode # Voids 2 # Bowel Movements 4 - Exam General: Ill appearing, no distress, appears younger than stated age, obese Derm: warm, dry Head: atraumatic, normocephalic, symmetric Eyes: EOMI, no lid lag, anicteric sclera Mouth: no lip lesion, mucous membranes dry Cardiovascular: S1S2 reg, no murmur, positive posterior tibial pulse bilateral, Lungs: CTA bilateral, no rhonchi, no rales , no accessory muscle use Abdominal: soft, nontender to palpation, no guarding, no appreciable organomegaly Ext: no gross muscle atrophy, no edema, no contractures Neuro: CN II-XI grossly intact, no focal neuro deficits Psych: Alert, oriented, appropriate affect - Labs CBC & Chem 7: 05/13/17 08:36 05/13/17 08:36 Labs: Abnormal Lab Results - Last 24 Hours (Table) 05/12/17 05/12/17 05/12/17 Range/Units 17:13 17:13 20:42 Hgb (11.4-16.0) gm/dL MCHC (31.0-37.0) g/dL Lymphocytes # 0.4 L (1.0-4.8) k/uL Chloride (98-107) mmol/L BUN 24 H (7-17) mg/dL Glucose 161 H (74-99) mg/dL POC Glucose (mg/dL) (75-99) mg/dL Alkaline Phosphatase 129 H (38-126) U/L Total Protein (6.3-8.2) g/dL Albumin (3.5-5.0) g/dL Ur Specific [place] >1.050 H (1.001-1.035) Urine Protein 1+ H (Negative) Urine Bacteria Rare H (None) /hpf 05/13/17 05/13/17 05/13/17 Range/Units 07:31 08:36 08:36 Hgb 11.3 L (11.4-16.0) gm/dL MCHC 30.5 L (31.0-37.0) g/dL Lymphocytes # 0.4 L (1.0-4.8) k/uL Chloride 110 H (98-107) mmol/L BUN 21 H (7-17) mg/dL Glucose 120 H (74-99) mg/dL POC Glucose (mg/dL) 114 H (75-99) mg/dL Alkaline Phosphatase (38-126) U/L Total Protein 5.9 L (6.3-8.2) g/dL Albumin 3.3 L (3.5-5.0) g/dL Ur Specific [place] (1.001-1.035) Urine Protein (Negative) Urine Bacteria (None) /hpf Microbiology - Last 24 Hours (Table) 05/12/17 17:13 Stool for WBCs - Final Stool 05/12/17 17:13 Stool Culture - Preliminary Stool Assessment and Plan Assessment: Viral gastroenteritis -Await stool cultures -Fecal white blood cells negative -Clear liquid diet -Antiemetics -Avoid antidiarrheals as able until stool culture available. Mild dehydration -IV fluids -Repeat BMP in a.m. -Encourage oral fluid hydration as able -hold hctz Chronic atrial fibrillation, rate controlled -On eliquis - not chronically on rate controlling medications Headache - CTA head and neck negative - Pain at base of skull - ultram, tylenol for pain - If continues likely needs further eval with CT head DM - hold oral meds - SSI - A1C 6.8 Hypertensive urgency, improved - hctz on hold - follow BP - clonidine prn DVT prophylaxis: eliquis Discussed with: patient, nursing Anticipated discharge: [address]: home with home health A total of 35 minutes was spent on the care of this complex patient more than 50 % of the time was spent in counseling and care coordination.
[2017-05-13 12:28] LABS: Glucose,Whole Blood 141 mg/dL (75-99)
[2017-05-13 17:15] LABS: Glucose,Whole Blood 118 mg/dL (75-99)
[2017-05-13 18:07] LABS: Hemoglobin A1C 7.1 % (4.0-6.0)
[2017-05-13 21:00] LABS: Glucose,Whole Blood 121 mg/dL (75-99)
[2017-05-14 07:18] LABS: Glucose,Whole Blood 119 mg/dL (75-99)
[2017-05-14 07:39] LABS: HCT 35.3 % (34.0-46.0); HGB 11.1 gm/dL (11.4-16.0); Hypochromasia Slight; MCHC 31.5 g/dL (31.0-37.0); MCV 92.1 fL (80.0-100.0); Mean Platelet Volume 8.8; Platelet Count 148 k/uL (150-450); RBC 3.84 m/uL (3.80-5.40); WBC 4.2 k/uL (3.8-10.6)
[2017-05-14 07:59] LABS: Anion Gap 9 mmol/L; Blood Urea Nitrogen 14 mg/dL (7-17); Calcium 8.6 mg/dL (8.4-10.2); Carbon Dioxide 22 mmol/L (22-30); Chloride 107 mmol/L (98-107); Glucose 123 mg/dL (74-99); Magnesium 1.4 mg/dL (1.6-2.3); Potassium 3.6 mmol/L (3.5-5.1); Sodium 138 mmol/L (137-145)
[2017-05-14] MEDS: INSULIN ASPART 100 UNIT/ML 1 ML 10 ML VIAL SQ SCH ×4 (08:23→22:05)
[2017-05-14] MEDS: MAGNESIUM SULFATE-D5W PMX 1 GM in DEXTROSE/WATER 1 100ML.BAG IVPB SCH ×3 (09:40→13:15)
[2017-05-14] MEDS: APIXABAN 2.5 MG TABLET PO SCH ×2 (09:40→20:11)
[2017-05-14] MEDS: LEVOTHYROXINE 25 MCG TAB PO SCH (09:42)
[2017-05-14] MEDS: MAGNESIUM OXIDE 400 MG TAB PO SCH (09:43)
[2017-05-14] MEDS: LISINOPRIL 20 MG TAB PO SCH (09:43)
[2017-05-14] MEDS: OXYBUTYNIN XL 5 MG TAB.ER.24 PO SCH (09:43)
[2017-05-14] MEDS: GABAPENTIN 300 MG CAP PO SCH ×3 (09:43→22:11)
[2017-05-14] MEDS: PANTOPRAZOLE 40 MG TABLET PO SCH (09:43)
[2017-05-14] MEDS: traMADol 50 MG TAB PO PRN (11:28)
[2017-05-14] MEDS: oxyCODONE-APAP 5-325MG 1 EACH TAB PO PRN (11:29)
[2017-05-14 12:02] LABS: Glucose,Whole Blood 137 mg/dL (75-99)
--- NOTE | 2017-05-14 14:02 | P.PN ---
Subjective Progress Note Date: 05/14/17 Principal diagnosis: Patient is an 89-year-old female with a history of atrial fibrillation , diabetes mellitus, GERD, and hypertension who presented to the hospital with complaints of intractable nausea, vomiting, and diarrhea. In the ER she underwent an extensive evaluation. Her initial vital signs showed her to be slightly hypertensive with a blood pressure 177/94. Initial laboratory analysis demonstrated slight dehydration. C. diff was negative. Urinalysis was negative. Stool culture and stool for white blood cells were ordered. She was started on IV fluids in the ER. CT of the abdomen and pelvis demonstrated large bowel fluid consistent with diarrhea as well as a left renal cyst, large hiatal hernia, an old T8 compression fracture. She also underwent a CT of the head and neck for headaches which demonstrated an apparent right subclavian area began artery without carotid stenosis. Negative CT angiogram of the head and neck. She was admitted as observation for dehydration and intractable diarrhea. On the morning after admission she continued to have profuse diarrhea. Stool white blood cells came back negative, C diff was negative. patient hypomagnesemic and electrolytes replaced Patient reporting intractable nausea and severe diarrhea profuse ongoing and continuous no improvement since yesterday, complaining of severe fatigue and weakness. No acute events overnight Objective - Vital Signs Vital signs: Vital Signs Temp 98.9 F 05/14/17 07:00 Pulse 94 05/14/17 07:00 Resp 18 05/14/17 07:00 BP 154/73 05/14/17 07:00 Pulse Ox 94 L 05/14/17 07:00 Intake & Output 05/13/17 05/14/17 05/14/17 18:59 06:59 18:59 Intake Total 720 400 Output Total 3 Balance 720 397 Intake: Oral 720 400 Output: Urine/Stool Mix 3 Other: # Voids 1 2 # Bowel Movements 2 2 3 - Exam Constitutional: No acute distress, conversant, pleasant Eyes: Anicteric sclerae, moist conjunctiva, no lid-lag, PERRLA ENMT: NC/AT,Oropharynx clear, no erythema, exudates Neck:Supple, FROM, no masses, or JVD, No carotid bruits; No thyromegaly Lungs: Clear to auscultation, Clear to percussion, Normal respiratory effort, no accessory muscle use Cardiovascular: Heart regular in rate and rhythm, No murmurs, gallops, or rubs no peripheral edema Abdominal: Soft Nontender, nom distended, no guarding, no rebound or rigidity, Normoactive bowel sounds No hepatomegaly, No splenomegaly, No palpable mass No abdominal wall hernia noted Skin: Normal temperature, tone, texture, turgor, No induration No subcutaneous nodules, No rash, lesions, No ulcers Extremities:No digital cyanosis No clubbing, Pedal pulses intact and symmetrical Radial pulses intact and symmetrical Normal gait and station, No calf tenderness Psychiatric: Alert and oriented to person, place and time, Appropriate affect Intact judgement Neuro: Muscles Strength 5/5 in all 4 extremities, Sensation to light touch grossly present throughout, Cranial nerves II-XII grossly intact. No focal sensory deficits - Labs CBC & Chem 7: 05/14/17 07:20 05/14/17 07:20 Labs: Abnormal Lab Results - Last 24 Hours (Table) 05/13/17 05/13/17 05/13/17 Range/Units 08:36 16:57 20:56 Hgb (11.4-16.0) gm/dL Plt Count (150-450) k/uL Glucose (74-99) mg/dL POC Glucose (mg/dL) 118 H 121 H (75-99) mg/dL Hemoglobin A1c 7.1 H (4.0-6.0) % Magnesium (1.6-2.3) mg/dL 05/14/17 05/14/17 05/14/17 Range/Units 07:05 07:20 07:20 Hgb 11.1 L (11.4-16.0) gm/dL Plt Count 148 L (150-450) k/uL Glucose 123 H (74-99) mg/dL POC Glucose (mg/dL) 119 H (75-99) mg/dL Hemoglobin A1c (4.0-6.0) % Magnesium 1.4 L (1.6-2.3) mg/dL 05/14/17 Range/Units 11:57 Hgb (11.4-16.0) gm/dL Plt Count (150-450) k/uL Glucose (74-99) mg/dL POC Glucose (mg/dL) 137 H (75-99) mg/dL Hemoglobin A1c (4.0-6.0) % Magnesium (1.6-2.3) mg/dL Microbiology - Last 24 Hours (Table) 05/12/17 17:13 Stool for WBCs - Final Stool Assessment and Plan Assessment: Viral gastroenteritis -Await stool cultures -Fecal white blood cells negative, C diff negative X1 will recheck -Clear liquid diet -Antiemetics -Avoid antidiarrheals as able until stool culture available. Mild dehydration -IV fluids -Repeat BMP in a.m. -Encourage oral fluid hydration as able -hold hctz Chronic atrial fibrillation, rate controlled -On eliquis - not chronically on rate controlling medications Hypomagnesemia * Mag at 1.4 we'll replace and recheck her labs tomorrow morning Headache - CTA head and neck negative - Pain at base of skull - ultram, tylenol for pain - If continues likely needs further eval with CT head DM - hold oral meds - SSI - A1C 6.8 Hypertensive urgency, improved - hctz on hold - follow BP - clonidine prn DVT prophylaxis: farnaz Discussed with: patient, nursing Anticipated discharge: [address]: home with home health A total of 35 minutes was spent on the care of this complex patient more than 50 % of the time was spent in counseling and care coordination.
[2017-05-14 17:14] LABS: Glucose,Whole Blood 123 mg/dL (75-99)
[2017-05-14 21:18] LABS: Glucose,Whole Blood 117 mg/dL (75-99)
[2017-05-14] MEDS: ACETAMINOPHEN TAB 325 MG TAB PO PRN (21:27)
[2017-05-14] MEDS: ONDANSETRON 4 MG/2 ML VIAL IVP PRN (22:17)
[2017-05-15 07:54] LABS: Glucose,Whole Blood 103 mg/dL (75-99)
[2017-05-15] MEDS: INSULIN ASPART 100 UNIT/ML 1 ML 10 ML VIAL SQ SCH ×4 (07:58→20:48)
[2017-05-15] MEDS: GABAPENTIN 300 MG CAP PO SCH ×3 (08:44→22:25)
[2017-05-15] MEDS: APIXABAN 2.5 MG TABLET PO SCH ×2 (08:44→20:26)
[2017-05-15] MEDS: PANTOPRAZOLE 40 MG TABLET PO SCH (08:44)
[2017-05-15] MEDS: MAGNESIUM OXIDE 400 MG TAB PO SCH (08:45)
[2017-05-15] MEDS: LEVOTHYROXINE 25 MCG TAB PO SCH (08:45)
[2017-05-15] MEDS: LISINOPRIL 20 MG TAB PO SCH (08:45)
[2017-05-15] MEDS: ONDANSETRON 4 MG/2 ML VIAL IVP PRN (08:45)
[2017-05-15] MEDS: OXYBUTYNIN XL 5 MG TAB.ER.24 PO SCH (08:45)
[2017-05-15] MEDS: ACETAMINOPHEN TAB 325 MG TAB PO PRN ×2 (09:40→19:02)
[2017-05-15 09:53] LABS: ALT 27 U/L (9-52); AST 30 U/L (14-36); Albumin 3.2 g/dL (3.5-5.0); Alkaline Phosphatase 86 U/L (38-126); Anion Gap 11 mmol/L; Blood Urea Nitrogen 12 mg/dL (7-17); Calcium 8.7 mg/dL (8.4-10.2); Carbon Dioxide 20 mmol/L (22-30); Chloride 107 mmol/L (98-107); Glucose 137 mg/dL (74-99); Magnesium 1.7 mg/dL (1.6-2.3); Potassium 3.5 mmol/L (3.5-5.1); Sodium 138 mmol/L (137-145); Total Bilirubin 0.5 mg/dL (0.2-1.3)
--- NOTE | 2017-05-15 10:05 | P.PN ---
Subjective Progress Note Date: 05/15/17 Principal diagnosis: Patient is an 89-year-old female with a history of atrial fibrillation , diabetes mellitus, GERD, and hypertension who presented to the hospital with complaints of intractable nausea, vomiting, and diarrhea. In the ER she underwent an extensive evaluation. Her initial vital signs showed her to be slightly hypertensive with a blood pressure 177/94. Initial laboratory analysis demonstrated slight dehydration. C. diff was negative. Urinalysis was negative. Stool culture and stool for white blood cells were ordered. She was started on IV fluids in the ER. CT of the abdomen and pelvis demonstrated large bowel fluid consistent with diarrhea as well as a left renal cyst, large hiatal hernia, an old T8 compression fracture. She also underwent a CT of the head and neck for headaches which demonstrated an apparent right subclavian area began artery without carotid stenosis. Negative CT angiogram of the head and neck. She was admitted as observation for dehydration and intractable diarrhea. On the morning after admission she continued to have profuse diarrhea. Stool white blood cells came back negative, C diff was negative. patient hypomagnesemic and electrolytes replaced Patient sitting up in chair today. Patient reporting improvement in her nausea and severe diarrhea profuse ongoing and continuous with some mild improvement since yesterday, complaining of severe fatigue and weakness. No acute events overnight Objective - Vital Signs Vital signs: Vital Signs Temp 98.4 F 05/15/17 07:00 Pulse 84 05/15/17 07:00 Resp 16 05/15/17 07:00 BP 162/85 05/15/17 07:00 Pulse Ox 95 05/15/17 07:00 Intake & Output 05/14/17 05/15/17 05/15/17 18:59 06:59 18:59 Intake Total 400 Output Total 2 Balance 398 Intake: Oral 400 Output: Urine/Stool Mix 2 Other: Voiding Method Bedpan Bedpan # Voids 3 4 # Bowel Movements 1 0 1 - Exam Constitutional: No acute distress, conversant, pleasant Eyes: Anicteric sclerae, moist conjunctiva, no lid-lag, PERRLA ENMT: NC/AT,Oropharynx clear, no erythema, exudates Neck:Supple, FROM, no masses, or JVD, No carotid bruits; No thyromegaly Lungs: Clear to auscultation, Clear to percussion, Normal respiratory effort, no accessory muscle use Cardiovascular: Heart regular in rate and rhythm, No murmurs, gallops, or rubs no peripheral edema Abdominal: Soft Nontender, nom distended, no guarding, no rebound or rigidity, Normoactive bowel sounds No hepatomegaly, No splenomegaly, No palpable mass No abdominal wall hernia noted Skin: Normal temperature, tone, texture, turgor, No induration No subcutaneous nodules, No rash, lesions, No ulcers Extremities:No digital cyanosis No clubbing, Pedal pulses intact and symmetrical Radial pulses intact and symmetrical Normal gait and station, No calf tenderness Psychiatric: Alert and oriented to person, place and time, Appropriate affect Intact judgement Neuro: Muscles Strength 5/5 in all 4 extremities, Sensation to light touch grossly present throughout, Cranial nerves II-XII grossly intact. No focal sensory deficits - Labs CBC & Chem 7: 05/14/17 07:20 05/15/17 09:08 Labs: Abnormal Lab Results - Last 24 Hours (Table) 05/14/17 05/14/17 05/14/17 Range/Units 11:57 17:10 21:07 Carbon Dioxide (22-30) mmol/L Glucose (74-99) mg/dL POC Glucose (mg/dL) 137 H 123 H 117 H (75-99) mg/dL Total Protein (6.3-8.2) g/dL Albumin (3.5-5.0) g/dL 05/15/17 05/15/17 Range/Units 07:39 09:08 Carbon Dioxide 20 L (22-30) mmol/L Glucose 137 H (74-99) mg/dL POC Glucose (mg/dL) 103 H (75-99) mg/dL Total Protein 6.0 L (6.3-8.2) g/dL Albumin 3.2 L (3.5-5.0) g/dL Microbiology - Last 24 Hours (Table) 05/12/17 17:13 Stool Culture - Preliminary Stool Assessment and Plan Assessment: Viral gastroenteritis -Await stool preliminary negative for salmonella E coli -Fecal white blood cells negative, C diff negative X1 will recheck -Clear liquid diet -Antiemetics -Initiate loperamide 3 times a day Mild dehydration -IV fluids -Repeat BMP in a.m. -Encourage oral fluid hydration as able -hold hctz Chronic atrial fibrillation, rate controlled -On eliquis - not chronically on rate controlling medications Hypomagnesemia * Mag at 1.7 we'll replace and recheck her labs tomorrow morning debility * Consult physical therapy patient may need to have a wheelchair to get around Headache - CTA head and neck negative - Pain at base of skull - ultram, tylenol for pain - If continues likely needs further eval with CT head DM - hold oral meds - SSI - A1C 6.8 Hypertensive urgency, improved - hctz on hold - follow BP - clonidine prn DVT prophylaxis: farnaz Discussed with: patient, nursing Anticipated discharge: [address]: home with home health A total of 35 minutes was spent on the care of this complex patient more than 50 % of the time was spent in counseling and care coordination.
[2017-05-15] MEDS: MAGNESIUM SULFATE-D5W PMX 1 GM in DEXTROSE/WATER 1 100ML.BAG IVPB SCH ×2 (11:09→12:29)
[2017-05-15] MEDS: LOPERAMIDE 2 MG CAP PO SCH ×3 (11:12→22:25)
[2017-05-15 12:43] LABS: Glucose,Whole Blood 132 mg/dL (75-99)
[2017-05-15] MEDS: traMADol 50 MG TAB PO PRN (15:25)
[2017-05-15 17:45] LABS: Glucose,Whole Blood 100 mg/dL (75-99)
[2017-05-15 20:34] LABS: Glucose,Whole Blood 110 mg/dL (75-99)
[2017-05-16 07:58] LABS: Glucose,Whole Blood 91 mg/dL (75-99)
[2017-05-16] MEDS: INSULIN ASPART 100 UNIT/ML 1 ML 10 ML VIAL SQ SCH ×4 (08:44→22:07)
[2017-05-16 08:48] LABS: ALT 25 U/L (9-52); AST 24 U/L (14-36); Alkaline Phosphatase 82 U/L (38-126); Anion Gap 8 mmol/L; Blood Urea Nitrogen 9 mg/dL (7-17); Calcium 8.6 mg/dL (8.4-10.2); Carbon Dioxide 25 mmol/L (22-30); Chloride 108 mmol/L (98-107); Glucose 100 mg/dL (74-99); Magnesium 1.8 mg/dL (1.6-2.3); Potassium 3.7 mmol/L (3.5-5.1); Sodium 141 mmol/L (137-145); Total Bilirubin 0.4 mg/dL (0.2-1.3); Total Protein 5.6 g/dL (6.3-8.2)
[2017-05-16] MEDS: APIXABAN 2.5 MG TABLET PO SCH ×2 (08:52→22:08)
[2017-05-16] MEDS: LOPERAMIDE 2 MG CAP PO SCH (08:52)
[2017-05-16] MEDS: LEVOTHYROXINE 25 MCG TAB PO SCH (08:52)
[2017-05-16] MEDS: PANTOPRAZOLE 40 MG TABLET PO SCH (08:52)
[2017-05-16] MEDS: OXYBUTYNIN XL 5 MG TAB.ER.24 PO SCH (08:52)
[2017-05-16] MEDS: MAGNESIUM OXIDE 400 MG TAB PO SCH (08:52)
[2017-05-16] MEDS: GABAPENTIN 300 MG CAP PO SCH ×3 (08:52→22:07)
[2017-05-16] MEDS: LISINOPRIL 20 MG TAB PO SCH (08:52)
[2017-05-16] MEDS: traMADol 50 MG TAB PO PRN (09:35)
[2017-05-16 11:54] LABS: Glucose,Whole Blood 122 mg/dL (75-99)
[2017-05-16] MEDS ORDERED: IBUPROFEN 600 MG TAB PO STA (11:56)
--- NOTE | 2017-05-16 12:03 | P.DS ---
Providers Date of admission: 05/14/17 18:44 Attending physician: Jeremias Bocanegra MD Primary care physician: Neena Bellamy MD - Discharge Diagnosis(es) (1) Viral gastroenteritis Current Visit: Yes Status: Resolved (2) Dehydration Current Visit: Yes Status: Resolved (3) Nausea vomiting and diarrhea Current Visit: Yes Status: Resolved (4) Hypomagnesemia Current Visit: Yes Status: Resolved (5) Accelerated hypertension Current Visit: Yes Status: Resolved (6) Debility Current Visit: Yes Status: Acute Hospital Course: Patient is an 89-year-old female with a history of atrial fibrillation , diabetes mellitus, GERD, and hypertension who presented to the hospital with complaints of intractable nausea, vomiting, and diarrhea. In the ER she underwent an extensive evaluation. Her initial vital signs showed her to be slightly hypertensive with a blood pressure 177/94. Initial laboratory analysis demonstrated slight dehydration. C. diff was negative. Urinalysis was negative. Stool culture and stool for white blood cells were ordered. She was started on IV fluids in the ER. CT of the abdomen and pelvis demonstrated large bowel fluid consistent with diarrhea as well as a left renal cyst, large hiatal hernia, an old T8 compression fracture. She also underwent a CT of the head and neck for headaches which demonstrated an apparent right subclavian area began artery without carotid stenosis. Negative CT angiogram of the head and neck. She was admitted as observation for dehydration and intractable diarrhea. On the morning after admission she continued to have profuse diarrhea. Stool cultures were negative for any infectious etiology Stool white blood cells came back negative, C diff was negative. patient was hypomagnesemic due to diarrhea and her electrolytes replaced. She was started on loperamide which resolved her diarrhea and her diet was advanced which she tolerated well. She was subsequently discharged home in stable condition. This discharge process took approximately 35 minutes Patient Condition at Discharge: Fair Plan - Discharge Summary Discharge Rx Participant: No New Discharge Prescriptions: New Acetaminophen Tab [Tylenol] 650 mg PO Q6HR PRN #0 tab PRN Reason: Mild Pain Or Fever > 100.5 Continue oxyCODONE-APAP 10-325MG [Percocet 10-325 mg] 0.5 - 1 tab PO TID PRN PRN Reason: BACK PAIN Tolterodine ER [Detrol LA] 4 mg PO DAILY Pioglitazone HCl 15 mg PO DAILY Cholecalciferol [Vitamin D3] 1,000 unit PO DAILY Ascorbic Acid [Vitamin C] 500 mg PO DAILY Omeprazole 20 mg PO DAILY Magnesium Oxide [Mag-Ox] 250 mg PO DAILY Levothyroxine Sodium [Synthroid] 25 mcg PO DAILY Gabapentin [Neurontin] 300 mg PO TID Enalapril/Hydrochlorothiazide [Enalapril-Hctz 10-25 mg Tablet] 1 tab PO DAILY Apixaban [Eliquis] 2.5 mg PO BID Discharge Medication List Apixaban [Eliquis] 2.5 mg PO BID 04/28/17 [History] Ascorbic Acid [Vitamin C] 500 mg PO DAILY 04/28/17 [History] Cholecalciferol [Vitamin D3] 1,000 unit PO DAILY 04/28/17 [History] Enalapril/Hydrochlorothiazide [Enalapril-Hctz 10-25 mg Tablet] 1 tab PO DAILY [History] Gabapentin [Neurontin] 300 mg PO TID 04/28/17 [History] Levothyroxine Sodium [Synthroid] 25 mcg PO DAILY 04/28/17 [History] Magnesium Oxide [Mag-Ox] 250 mg PO DAILY 04/28/17 [History] Omeprazole 20 mg PO DAILY 04/28/17 [History] Pioglitazone HCl 15 mg PO DAILY 04/28/17 [History] Tolterodine ER [Detrol LA] 4 mg PO DAILY 04/28/17 [History] oxyCODONE-APAP 10-325MG [Percocet 10-325 mg] 0.5 - 1 tab PO TID PRN 04/28/17 [ History] Acetaminophen Tab [Tylenol] 650 mg PO Q6HR PRN #0 tab 05/16/17 [Rx] Follow up Appointment(s)/Referral(s): Neena Bellamy MD [Primary Care Provider] - [facility], [NON-STAFF] - Patient Instructions/Handouts: Acute Diarrhea (GEN) Activity/Diet/Wound Care/Special Instructions: Up with assist, fall precautions heart healthy, consistent card, soft diet.
--- NOTE | 2017-05-16 12:39 | P.PN ---
Subjective Progress Note Date: 05/16/17 Principal diagnosis: Patient is an 89-year-old female with a history of atrial fibrillation , diabetes mellitus, GERD, and hypertension who presented to the hospital with complaints of intractable nausea, vomiting, and diarrhea. In the ER she underwent an extensive evaluation. Her initial vital signs showed her to be slightly hypertensive with a blood pressure 177/94. Initial laboratory analysis demonstrated slight dehydration. C. diff was negative. Urinalysis was negative. Stool culture and stool for white blood cells were ordered. She was started on IV fluids in the ER. CT of the abdomen and pelvis demonstrated large bowel fluid consistent with diarrhea as well as a left renal cyst, large hiatal hernia, an old T8 compression fracture. She also underwent a CT of the head and neck for headaches which demonstrated an apparent right subclavian area began artery without carotid stenosis. Negative CT angiogram of the head and neck. She was admitted as observation for dehydration and intractable diarrhea. On the morning after admission she continued to have profuse diarrhea. Stool white blood cells came back negative, C diff was negative. patient hypomagnesemic and electrolytes replaced. pateint started on Immodium Patient sitting up in chair today. Patient reporting improvement in her nausea and diarrhea s slowing down and improved since yesterday , complaining of severe fatigue and weakness and headache diffuse No acute events overnight Objective - Vital Signs Vital signs: Vital Signs Temp 96.8 F L 05/16/17 07:00 Pulse 73 05/16/17 07:00 Resp 16 05/16/17 07:00 BP 176/90 05/16/17 07:00 Pulse Ox 96 05/16/17 07:00 Intake & Output 05/15/17 05/16/17 05/16/17 18:59 06:59 18:59 Intake Total 480 Balance 480 Intake: Oral 480 Other: Voiding Method Bedside Commode Bedside Commode Bedside Commode # Voids 4 4 # Bowel Movements 3 2 - Exam Constitutional: No acute distress, conversant, pleasant Eyes: Anicteric sclerae, moist conjunctiva, no lid-lag, PERRLA ENMT: NC/AT,Oropharynx clear, no erythema, exudates Neck:Supple, FROM, no masses, or JVD, No carotid bruits; No thyromegaly Lungs: Clear to auscultation, Clear to percussion, Normal respiratory effort, no accessory muscle use Cardiovascular: Heart regular in rate and rhythm, No murmurs, gallops, or rubs no peripheral edema Abdominal: Soft Nontender, nom distended, no guarding, no rebound or rigidity, Normoactive bowel sounds No hepatomegaly, No splenomegaly, No palpable mass No abdominal wall hernia noted Skin: Normal temperature, tone, texture, turgor, No induration No subcutaneous nodules, No rash, lesions, No ulcers Extremities:No digital cyanosis No clubbing, Pedal pulses intact and symmetrical Radial pulses intact and symmetrical Normal gait and station, No calf tenderness Psychiatric: Alert and oriented to person, place and time, Appropriate affect Intact judgement Neuro: Muscles Strength 5/5 in all 4 extremities, Sensation to light touch grossly present throughout, Cranial nerves II-XII grossly intact. No focal sensory deficits - Labs CBC & Chem 7: 05/14/17 07:20 05/16/17 08:03 Labs: Abnormal Lab Results - Last 24 Hours (Table) 05/15/17 05/15/17 05/15/17 Range/Units 12:37 17:23 20:33 Chloride (98-107) mmol/L Glucose (74-99) mg/dL POC Glucose (mg/dL) 132 H 100 H 110 H (75-99) mg/dL Total Protein (6.3-8.2) g/dL Albumin (3.5-5.0) g/dL 05/16/17 05/16/17 Range/Units 08:03 11:52 Chloride 108 H (98-107) mmol/L Glucose 100 H (74-99) mg/dL POC Glucose (mg/dL) 122 H (75-99) mg/dL Total Protein 5.6 L (6.3-8.2) g/dL Albumin 3.0 L (3.5-5.0) g/dL Microbiology - Last 24 Hours (Table) 05/12/17 17:13 Stool Culture - Final Stool Assessment and Plan Assessment: Viral gastroenteritis -Await stool preliminary negative for salmonella E coli -Fecal white blood cells negative, C diff negative X1 will recheck -Clear liquid diet -Antiemetics -Initiate loperamide 3 times a day Mild dehydration -IV fluids -Repeat BMP in a.m. -Encourage oral fluid hydration as able -hold hctz Chronic atrial fibrillation, rate controlled -On eliquis - not chronically on rate controlling medications Hypomagnesemia * Mag at 1.7 we'll replace and recheck her labs tomorrow morning debility * Consult physical therapy patient may need to have a wheelchair to get around Headache - CTA head and neck negative - Pain at base of skull - We'll start ibuprofen when necessary and continue with Tylenol - If continues likely needs further eval with CT head DM - hold oral meds - SSI - A1C 6.8 Hypertensive urgency, * Resolved blood pressure is much improved Disposition * Patient is clinically ready for discharge to rehab but likely will be placed on till Thursday as we awaiting an accepting physician (1) Viral gastroenteritis Current Visit: Yes Status: Acute Code(s): A08.4 - VIRAL INTESTINAL INFECTION , UNSPECIFIED SNOMED Code(s): 004242610 (2) Dehydration Current Visit: Yes Status: Acute Code(s): E86.0 - DEHYDRATION SNOMED Code( s): 91226698 (3) Nausea vomiting and diarrhea Current Visit: Yes Status: Acute Code(s): R11.2 - NAUSEA WITH VOMITING, UNSPECIFIED; R19.7 - DIARRHEA, UNSPECIFIED SNOMED Code(s): 2380833 (4) Hypomagnesemia Current Visit: Yes Status: Acute Code(s): E83.42 - HYPOMAGNESEMIA SNOMED Code(s): 703769159 (5) Accelerated hypertension Current Visit: Yes Status: Acute Code(s): I10 - ESSENTIAL (PRIMARY) HYPERTENSION SNOMED Code(s): 92141988 (6) Debility Current Visit: Yes Status: Acute Code(s): R53.81 - OTHER MALAISE SNOMED Code(s): 43973879
[2017-05-16] MEDS ORDERED: LISINOPRIL 10 MG TAB PO STA (15:12)
[2017-05-16] MEDS ORDERED: HYDROCHLOROTHIAZIDE 25 MG TAB PO ONE (15:14)
[2017-05-16 17:08] LABS: Glucose,Whole Blood 126 mg/dL (75-99)
[2017-05-16 20:52] LABS: Glucose,Whole Blood 125 mg/dL (75-99)
[2017-05-17 07:36] LABS: Glucose,Whole Blood 102 mg/dL (75-99)
[2017-05-17] MEDS: INSULIN ASPART 100 UNIT/ML 1 ML 10 ML VIAL SQ SCH ×4 (07:39→21:07)
[2017-05-17] MEDS: PANTOPRAZOLE 40 MG TABLET PO SCH (07:59)
[2017-05-17] MEDS: LISINOPRIL-HCTZ 20-25 MG 1 EACH TAB PO SCH (07:59)
[2017-05-17] MEDS: MAGNESIUM OXIDE 400 MG TAB PO SCH (07:59)
[2017-05-17] MEDS: OXYBUTYNIN XL 5 MG TAB.ER.24 PO SCH (07:59)
[2017-05-17] MEDS: GABAPENTIN 300 MG CAP PO SCH ×3 (07:59→21:07)
[2017-05-17] MEDS: APIXABAN 2.5 MG TABLET PO SCH ×2 (07:59→21:07)
[2017-05-17] MEDS: LEVOTHYROXINE 25 MCG TAB PO SCH (07:59)
[2017-05-17] MEDS ORDERED: IBUPROFEN 400 MG TAB PO PRN (09:32)
--- NOTE | 2017-05-17 09:35 | P.PN ---
Subjective Principal diagnosis: Patient is an 89-year-old female with a history of atrial fibrillation , diabetes mellitus, GERD, and hypertension who presented to the hospital with complaints of intractable nausea, vomiting, and diarrhea. In the ER she underwent an extensive evaluation. Her initial vital signs showed her to be slightly hypertensive with a blood pressure 177/94. Initial laboratory analysis demonstrated slight dehydration. C. diff was negative. Urinalysis was negative. Stool culture and stool for white blood cells were ordered. She was started on IV fluids in the ER. CT of the abdomen and pelvis demonstrated large bowel fluid consistent with diarrhea as well as a left renal cyst, large hiatal hernia, an old T8 compression fracture. She also underwent a CT of the head and neck for headaches which demonstrated an apparent right subclavian area began artery without carotid stenosis. Negative CT angiogram of the head and neck. She was admitted as observation for dehydration and intractable diarrhea. On the morning after admission she continued to have profuse diarrhea. Stool white blood cells came back negative, C diff was negative. patient hypomagnesemic and electrolytes replaced. pateint started on Immodium Patient sitting up in chair today. Patient reporting feeling much better today diarrhea has totally resolved, feeling stronger and headache is gone .No acute events overnight Objective - Vital Signs Vital signs: Vital Signs Temp 98.2 F 05/17/17 07:00 Pulse 62 05/17/17 07:00 Resp 16 05/17/17 07:00 BP 137/89 05/17/17 07:00 Pulse Ox 97 05/17/17 07:00 Intake & Output 05/16/17 05/17/17 05/17/17 18:59 06:59 18:59 Other: Voiding Method Bedside Commode # Voids 3 4 - Exam Constitutional: No acute distress, conversant, pleasant Eyes: Anicteric sclerae, moist conjunctiva, no lid-lag, PERRLA ENMT: NC/AT,Oropharynx clear, no erythema, exudates Neck:Supple, FROM, no masses, or JVD, No carotid bruits; No thyromegaly Lungs: Clear to auscultation, Clear to percussion, Normal respiratory effort, no accessory muscle use Cardiovascular: Heart regular in rate and rhythm, No murmurs, gallops, or rubs no peripheral edema Abdominal: Soft Nontender, nom distended, no guarding, no rebound or rigidity, Normoactive bowel sounds No hepatomegaly, No splenomegaly, No palpable mass No abdominal wall hernia noted Skin: Normal temperature, tone, texture, turgor, No induration No subcutaneous nodules, No rash, lesions, No ulcers Extremities:No digital cyanosis No clubbing, Pedal pulses intact and symmetrical Radial pulses intact and symmetrical Normal gait and station, No calf tenderness Psychiatric: Alert and oriented to person, place and time, Appropriate affect Intact judgement Neuro: Muscles Strength 5/5 in all 4 extremities, Sensation to light touch grossly present throughout, Cranial nerves II-XII grossly intact. No focal sensory deficits - Labs CBC & Chem 7: 05/14/17 07:20 05/16/17 08:03 Labs: Abnormal Lab Results - Last 24 Hours (Table) 05/16/17 05/16/17 05/16/17 Range/Units 11:52 17:04 20:50 POC Glucose (mg/dL) 122 H 126 H 125 H (75-99) mg/dL 05/17/17 Range/Units 07:31 POC Glucose (mg/dL) 102 H (75-99) mg/dL Assessment and Plan Assessment: Viral gastroenteritis -Await stool preliminary negative for salmonella E coli -Fecal white blood cells negative, C diff negative 2 -Clear liquid diet -Antiemetics -Loperamide discontinued yesterday Mild dehydration -Discontinue IV fluids -Repeat BMP in a.m. -Encourage oral fluid hydration as able -hold hctz Chronic atrial fibrillation, rate controlled -On eliquis - not chronically on rate controlling medications Hypomagnesemia * Mag at 1.7 we'll replace and recheck her labs tomorrow morning debility * Consult physical therapy patient may need to have a wheelchair to get around Headache - CTA head and neck negative - Pain at base of skull -Continue ibuprofen when necessary and continue with Tylenol - If continues likely needs further eval with CT head DM - hold oral meds - SSI - A1C 6.8 Hypertensive urgency, * Resolved * Continue on chronic antihypertensive therapy Disposition * Patient is clinically ready for discharge to rehab but likely will be placed on till Thursday as we awaiting an accepting physician (1) Viral gastroenteritis Current Visit: Yes Status: Resolved Code(s): A08.4 - VIRAL INTESTINAL INFECTION, UNSPECIFIED SNOMED Code(s): 673340349 (2) Dehydration Current Visit: Yes Status: Resolved Code(s): E86.0 - DEHYDRATION SNOMED Code(s): 16774139 (3) Nausea vomiting and diarrhea Current Visit: Yes Status: Resolved Code(s): R11.2 - NAUSEA WITH VOMITING, UNSPECIFIED; R19.7 - DIARRHEA, UNSPECIFIED SNOMED Code(s): 7413580 (4) Hypomagnesemia Current Visit: Yes Status: Resolved Code(s): E83.42 - HYPOMAGNESEMIA SNOMED Code(s): 378967275 (5) Accelerated hypertension Current Visit: Yes Status: Resolved Code(s): I10 - ESSENTIAL (PRIMARY) HYPERTENSION SNOMED Code(s): 21601917 (6) Debility Current Visit: Yes Status: Acute Code(s): R53.81 - OTHER MALAISE SNOMED Code(s): 09498537
[2017-05-17 11:50] LABS: Glucose,Whole Blood 173 mg/dL (75-99)
[2017-05-17 17:26] LABS: Glucose,Whole Blood 96 mg/dL (75-99)
[2017-05-17 20:58] LABS: Glucose,Whole Blood 135 mg/dL (75-99)
[2017-05-18 07:34] LABS: Glucose,Whole Blood 116 mg/dL (75-99)
[2017-05-18 07:44] VITALS: BP 152/95; PULSE 72; RESP 16; TEMP 97.2
[2017-05-18] MEDS: INSULIN ASPART 100 UNIT/ML 1 ML 10 ML VIAL SQ SCH ×2 (08:21→12:42)
[2017-05-18] MEDS: GABAPENTIN 300 MG CAP PO SCH (08:23)
[2017-05-18] MEDS: LISINOPRIL-HCTZ 20-25 MG 1 EACH TAB PO SCH (08:23)
[2017-05-18] MEDS: PANTOPRAZOLE 40 MG TABLET PO SCH (08:23)
[2017-05-18] MEDS: MAGNESIUM OXIDE 400 MG TAB PO SCH (08:24)
[2017-05-18] MEDS: APIXABAN 2.5 MG TABLET PO SCH (08:24)
[2017-05-18] MEDS: OXYBUTYNIN XL 5 MG TAB.ER.24 PO SCH (08:24)
[2017-05-18] MEDS: LEVOTHYROXINE 25 MCG TAB PO SCH (08:24)
[2017-05-18 12:46] LABS: Glucose,Whole Blood 153 mg/dL (75-99)
== END 2017-05-18 14:11 | DRG 392 ==
LOC: EC 15:39 → 4MS4W 20:39 → OBSVTOIN 05-14 18:44
PROVIDERS: ADMIT Internal Medicine; ATTEND Internal Medicine
DX: A08.4 Viral intestinal infection, unspecified (principal); I48.0 Paroxysmal atrial fibrillation; E83.42 Hypomagnesemia; E11.9 Type 2 diabetes mellitus without complications; E86.0 Dehydration; I48.2 Chronic atrial fibrillation; E03.9 Hypothyroidism, unspecified; N28.1 Cyst of kidney, acquired; I10 Essential (primary) hypertension; I16.0 Hypertensive urgency; K21.9 Gastro-esophageal reflux disease without esophagitis; K44.9 Diaphragmatic hernia without obstruction or gangrene; Z96.651 Presence of right artificial knee joint; Z66 Do not resuscitate; Z79.01 Long term (current) use of anticoagulants; Z79.899 Other long term (current) drug therapy; Z87.891 Personal history of nicotine dependence; Z79.891 Long term (current) use of opiate analgesic
CPT/HCPCS: 36415; 51701; 70496; 70498; 74177; 80048; 80053; 81001; 82272; 83036; 83690; 83735; 84484; 85025; 85027; 87045; 87046; 87324; 89055; 93005; 96361; 96374; 96375; 99285

== ENCOUNTER 2017-06-28 18:31 | Inpatient (IN) | payer MEDICARE, BC ==
[2017-06-28] MEDS ORDERED: ACETAMINOPHEN TAB 500 MG TAB PO STA (19:39)
[2017-06-28] MEDS ORDERED: IBUPROFEN 400 MG TAB PO STA (19:39)
[2017-06-28] MEDS ORDERED: SODIUM CHLORIDE 0.9% 1,000 ML IV STA (19:39)
--- NOTE | 2017-06-28 19:43 | ED ---
General Adult HPI - General Source: patient, RN notes reviewed Mode of arrival: wheelchair Limitations: no limitations <Sandra Marin - Last Filed: 06/28/17 21:03> <Cheo Barnett - Last Filed: 06/28/17 21:48> - General Chief complaint: Fever Stated complaint: COUGH, POSS FLU Time Seen by Provider: 06/28/17 19:15 - History of Present Illness Initial comments: 89-year-old female presents to the emergency department with a chief complaint of cough and congestion. Patient has been sick for the last 2 weeks. Patient over the last few days has had this worsening cough and congestion. SHe has had a flu twice this winter. THey state that she just seems to be getting weaker and weaker. THey state there hasnt been any phlem production. She denies pain. SHe states she does have some shortness of breath. They were concerned due to her continued weakness so they thought she should be seen. Patient denies any recent chest pain, back pain, abdominal pain, nausea vomiting, numbness or tingling, dysuria or hematuria, constipation or diarrhea, headaches or visual changes, or any other current symptoms. (Sandra Marin) - Related Data Home Medications Medication Instructions Recorded Confirmed Apixaban [Eliquis] 2.5 mg PO BID 04/28/17 06/28/17 Ascorbic Acid [Vitamin C] 500 mg PO QAM 04/28/17 06/28/17 Cholecalciferol [Vitamin D3] 1,000 unit PO QAM 04/28/17 06/28/17 Enalapril/Hydrochlorothiazide 2 tab PO DAILY 04/28/17 06/28/17 [Enalapril-Hctz 10-25 mg Tablet] Levothyroxine Sodium [Synthroid] 25 mcg PO QAM 04/28/17 06/28/17 Omeprazole 20 mg PO QAM 04/28/17 06/28/17 Pioglitazone HCl 15 mg PO QAM 04/28/17 06/28/17 Tolterodine ER [Detrol LA] 4 mg PO QAM 04/28/17 06/28/17 Acetaminophen [Tylenol] 650 mg PO QAM 06/28/17 06/28/17 Gabapentin [Neurontin] 300 mg PO TID@0600,1400,2200 03/18/18 03/18/18 Ipratropium-Albuterol Nebulize 3 ml INHALATION RT-Q4H PRN 06/28/17 06/28/17 [Duoneb 0.5 mg-3 mg/3 ml Soln] Magnesium Oxide [Mag-Ox] 400 mg PO QAM 06/28/17 06/28/17 Melatonin 3 mg PO HS PRN 06/28/17 06/28/17 Previous Rx's Medication Instructions Recorded Acetaminophen Tab [Tylenol] 650 mg PO Q6HR PRN #0 tab 05/16/17 Allergies Allergy/AdvReac Type Severity Reaction Status Date / Time adhesive tape Allergy Itching Verified 06/28/17 19:21 Review of Systems ROS Other: All systems not noted in ROS Statement are negative. <Sandra Marin - Last Filed: 06/28/17 21:03> ROS Other: All systems not noted in ROS Statement are negative. <Cheo Barnett - Last Filed: 06/28/17 21:48> ROS Statement: Those systems with pertinent positive or pertinent negative responses have been documented in the HPI. Past Medical History Past Medical History: Atrial Fibrillation, Diabetes Mellitus, GERD/Reflux, Hypertension, Thyroid Disorder Additional Past Medical History / Comment(s): kidney disease. hypothyroidism. History of Any Multi-Drug Resistant Organisms: None Reported Past Surgical History: Cholecystectomy, Joint Replacement, Orthopedic Surgery Additional Past Surgical History / Comment(s): back. right knee replacement. bilateral feet. Past Anesthesia/Blood Transfusion Reactions: No Reported Reaction Past Psychological History: No Psychological Hx Reported Smoking Status: Former smoker Past Alcohol Use History: None Reported Past Drug Use History: None Reported - Past Family History family Additional Family Medical History / Comment(s): denies family history of CAD or cancer <Sandra Marin - Last Filed: 06/28/17 21:03> General Exam Limitations: no limitations <Sandra Marin - Last Filed: 06/28/17 21:03> <Cheo Barnett - Last Filed: 06/28/17 21:48> - General Exam Comments Initial Comments: General: The patient is awake and alert, in no distress, and does not appear acutely ill. Eye: Pupils are equal, round and reactive to light, extra-ocular movements are intact; there is normal conjunctiva bilaterally. No signs of icterus. Ears, nose, mouth and throat: There are moist mucous membranes and no oral lesions. Neck: The neck is supple, there is no tenderness. Cardiovascular: There is a regular rate and rhythm. No murmur, rub or gallop is appreciated. Respiratory: Lungs are clear to auscultation, respirations are non-labored, breath sounds are equal. No wheezes, stridor, rales, or rhonchi. Gastrointestinal: Soft, non-distended, non-tender abdomen without masses or organomegaly noted. There is no rebound or guarding present. No CVA tenderness. Bowel sounds are unremarkable. Back: There is no tenderness to palpation in the midline. There is no obvious deformity. No rashes noted. Musculoskeletal: Normal ROM, no tenderness, There is no pedal edema. There is no calf tenderness or swelling. Sensation intact. Pulses equal bilaterally 2+. Neurological: CN II-XII intact, There are no obvious motor or sensory deficits. Coordination appears grossly intact. Speech is normal. Skin: Skin is warm and dry and no rashes or lesions are noted. Psychiatric: Cooperative, appropriate mood & affect, normal judgment. (Sandra Marin) Course <Sandra Marin - Last Filed: 06/28/17 21:03> <Cheo Barnett - Last Filed: 06/28/17 21:48> Vital Signs 06/28/17 06/28/17 06/28/17 18:34 19:54 21:14 Temperature 100.7 F H Pulse Rate 114 H 140 H 121 H Respiratory 18 20 22 Rate Blood Pressure 182/115 172/115 171/120 O2 Sat by Pulse 95 96 94 L Oximetry 06/28/17 06/28/17 06/28/17 21:17 21:27 21:42 Temperature Pulse Rate 114 H 103 H 112 H Respiratory 18 16 18 Rate Blood Pressure 164/91 O2 Sat by Pulse 95 Oximetry - Reevaluation(s) Reevaluation #1: 06/28/17 21:04 At this time patient meets sepsis criteria. (Sandra Marin) Reevaluation #2: 06/28/17 21:46 I did personally do a [id number] evaluation the patient did discuss the findings with the patient family. Patient does have audible wheezing and diminished breath sounds she also has atrial fibrillation with rapid ventricular response. Patient will be started on IV metoprolol in addition to a dose of IV Lasix for elevated BNP and suspected CHF component to her current problem. She is a former smoker but not been diagnosed with COPD before. I did discuss case with Dr. Stack (Cheo Barnett) EKG Findings - EKG Comments: EKG Findings:: Atrial fibrillation with RVR, ventricular rate 138, QRS duration 80, QT 252 <Sandra Marin - Last Filed: 06/28/17 21:03> Medical Decision Making - Lab Data Result diagrams: 06/28/17 19:38 06/28/17 19:38 - Radiology Data Radiology results: report reviewed, image reviewed <Sandra Marin - Last Filed: 06/28/17 21:03> - Lab Data Result diagrams: 06/28/17 19:38 06/28/17 19:38 <Cheo Barnett - Last Filed: 06/28/17 21:48> - Medical Decision Making 89 yo female presents to the ER with cc of fever, cough, and congestion. At this time x-ray showing an atypical pneumonia. EKG showed A. fib with RVR mostly likely due to fever we will give the patient metoprolol here as well is treat her fever. She does meet sepsis criteria and Zosyn has been ordered at this time. We will admit the patient for continued care. Patient is in agreement this plan. (Sandra Marin) - Lab Data Lab Results 06/28/17 06/28/17 06/28/17 Range/Units 18:44 19:38 19:38 WBC 6.6 (3.8-10.6) k/uL RBC 4.26 (3.80-5.40) m/uL Hgb 12.6 (11.4-16.0) gm/dL Hct 37.1 (34.0-46.0) % MCV 87.2 (80.0-100.0) fL MCH 29.6 (25.0-35.0) pg MCHC 33.9 (31.0-37.0) g/dL RDW 14.1 (11.5-15.5) % Plt Count 144 L (150-450) k/uL Neutrophils % 79 % Lymphocytes % 10 % Monocytes % 6 % Eosinophils % 1 % Basophils % 1 % Neutrophils # 5.2 (1.3-7.7) k/uL Lymphocytes # 0.6 L (1.0-4.8) k/uL Monocytes # 0.4 (0-1.0) k/uL Eosinophils # 0.1 (0-0.7) k/uL Basophils # 0.0 (0-0.2) k/uL PT (9.0-12.0) sec INR (<1.2) APTT (22.0-30.0) sec Sodium 136 L (137-145) mmol/L Potassium 4.2 (3.5-5.1) mmol/L Chloride 100 (98-107) mmol/L Carbon Dioxide 26 (22-30) mmol/L Anion Gap 10 mmol/L BUN 19 H (7-17) mg/dL Creatinine 1.00 (0.52-1.04) mg/dL Est GFR (CKD-EPI)AfAm 58 (>60 ml/min/1.73 sqM) Est GFR (CKD-EPI)NonAf 50 (>60 ml/min/1.73 sqM) Glucose 159 H (74-99) mg/dL Plasma Lactic Acid [place] (0.7-2.0) mmol/L Calcium 9.5 (8.4-10.2) mg/dL Total Bilirubin 0.8 (0.2-1.3) mg/dL AST 23 (14-36) U/L ALT 24 (9-52) U/L Alkaline Phosphatase 120 (38-126) U/L Total Creatine Kinase (30-135) U/L CK-MB (CK-2) (0.0-2.4) ng/mL CK-MB (CK-2) Rel Index Troponin I (0.000-0.034) ng/mL NT-Pro-B Natriuret Pep pg/mL Total Protein 6.6 (6.3-8.2) g/dL Albumin 3.7 (3.5-5.0) g/dL Urine Color Urine Appearance (Clear) Urine pH (5.0-8.0) Ur Specific [place] (1.001-1.035) Urine Protein (Negative) Urine Glucose (UA) (Negative) Urine Ketones (Negative) Urine Blood (Negative) Urine Nitrite (Negative) Urine Bilirubin (Negative) Urine Urobilinogen (<2.0) mg/dL Ur Leukocyte Esterase (Negative) Urine RBC (0-5) /hpf Urine WBC (0-5) /hpf Ur Squamous Epith Cells (0-4) /hpf Urine Bacteria (None) /hpf Urine Mucus (None) /hpf Influenza Type A RNA Not Detected (Not Detectd) Influenza Type B (PCR) Not Detected (Not Detectd) 06/28/17 06/28/17 06/28/17 Range/Units 19:38 19:38 19:38 WBC (3.8-10.6) k/uL RBC (3.80-5.40) m/uL Hgb (11.4-16.0) gm/dL Hct (34.0-46.0) % MCV (80.0-100.0) fL MCH (25.0-35.0) pg MCHC (31.0-37.0) g/dL RDW (11.5-15.5) % Plt Count (150-450) k/uL Neutrophils % % Lymphocytes % % Monocytes % % Eosinophils % % Basophils % % Neutrophils # (1.3-7.7) k/uL Lymphocytes # (1.0-4.8) k/uL Monocytes # (0-1.0) k/uL Eosinophils # (0-0.7) k/uL Basophils # (0-0.2) k/uL PT 10.5 (9.0-12.0) sec INR 1.1 (<1.2) APTT 25.7 (22.0-30.0) sec Sodium (137-145) mmol/L Potassium (3.5-5.1) mmol/L Chloride (98-107) mmol/L Carbon Dioxide (22-30) mmol/L Anion Gap mmol/L BUN (7-17) mg/dL Creatinine (0.52-1.04) mg/dL Est GFR (CKD-EPI)AfAm (>60 ml/min/1.73 sqM) Est GFR (CKD-EPI)NonAf (>60 ml/min/1.73 sqM) Glucose (74-99) mg/dL Plasma Lactic Acid [place] 1.0 (0.7-2.0) mmol/L Calcium (8.4-10.2) mg/dL Total Bilirubin (0.2-1.3) mg/dL AST (14-36) U/L ALT (9-52) U/L Alkaline Phosphatase (38-126) U/L Total Creatine Kinase 45 (30-135) U/L CK-MB (CK-2) 0.6 (0.0-2.4) ng/mL CK-MB (CK-2) Rel Index 1.3 Troponin I 0.024 (0.000-0.034) ng/mL NT-Pro-B Natriuret Pep pg/mL Total Protein (6.3-8.2) g/dL Albumin (3.5-5.0) g/dL Urine Color Urine Appearance (Clear) Urine pH (5.0-8.0) Ur Specific [place] (1.001-1.035) Urine Protein (Negative) Urine Glucose (UA) (Negative) Urine Ketones (Negative) Urine Blood (Negative) Urine Nitrite (Negative) Urine Bilirubin (Negative) Urine Urobilinogen (<2.0) mg/dL Ur Leukocyte Esterase (Negative) Urine RBC (0-5) /hpf Urine WBC (0-5) /hpf Ur Squamous Epith Cells (0-4) /hpf Urine Bacteria (None) /hpf Urine Mucus (None) /hpf Influenza Type A RNA (Not Detectd) Influenza Type B (PCR) (Not Detectd) 06/28/17 06/28/17 Range/Units 19:38 20:42 WBC (3.8-10.6) k/uL RBC (3.80-5.40) m/uL Hgb (11.4-16.0) gm/dL Hct (34.0-46.0) % MCV (80.0-100.0) fL MCH (25.0-35.0) pg MCHC (31.0-37.0) g/dL RDW (11.5-15.5) % Plt Count (150-450) k/uL Neutrophils % % Lymphocytes % % Monocytes % % Eosinophils % % Basophils % % Neutrophils # (1.3-7.7) k/uL Lymphocytes # (1.0-4.8) k/uL Monocytes # (0-1.0) k/uL Eosinophils # (0-0.7) k/uL Basophils # (0-0.2) k/uL PT (9.0-12.0) sec INR (<1.2) APTT (22.0-30.0) sec Sodium (137-145) mmol/L Potassium (3.5-5.1) mmol/L Chloride (98-107) mmol/L Carbon Dioxide (22-30) mmol/L Anion Gap mmol/L BUN (7-17) mg/dL Creatinine (0.52-1.04) mg/dL Est GFR (CKD-EPI)AfAm (>60 ml/min/1.73 sqM) Est GFR (CKD-EPI)NonAf (>60 ml/min/1.73 sqM) Glucose (74-99) mg/dL Plasma Lactic Acid [place] (0.7-2.0) mmol/L Calcium (8.4-10.2) mg/dL Total Bilirubin (0.2-1.3) mg/dL AST (14-36) U/L ALT (9-52) U/L Alkaline Phosphatase (38-126) U/L Total Creatine Kinase (30-135) U/L CK-MB (CK-2) (0.0-2.4) ng/mL CK-MB (CK-2) Rel Index Troponin I (0.000-0.034) ng/mL NT-Pro-B Natriuret Pep 2750 pg/mL Total Protein (6.3-8.2) g/dL Albumin (3.5-5.0) g/dL Urine Color Yellow Urine Appearance Clear (Clear) Urine pH 7.0 (5.0-8.0) Ur Specific [place] 1.015 (1.001-1.035) Urine Protein 2+ H (Negative) Urine Glucose (UA) Negative (Negative) Urine Ketones Negative (Negative) Urine Blood Negative (Negative) Urine Nitrite Negative (Negative) Urine Bilirubin Negative (Negative) Urine Urobilinogen <2.0 (<2.0) mg/dL Ur Leukocyte Esterase Trace H (Negative) Urine RBC 5 (0-5) /hpf Urine WBC 19 H (0-5) /hpf Ur Squamous Epith Cells <1 (0-4) /hpf Urine Bacteria Rare H (None) /hpf Urine Mucus Rare H (None) /hpf Influenza Type A RNA (Not Detectd) Influenza Type B (PCR) (Not Detectd) Critical Care Time <Sandra Marin - Last Filed: 06/28/17 21:03> Critical Care Time: Yes <Cheo Barnett - Last Filed: 06/28/17 21:48> Critical Care Time: 31 minutes of critical care time which includes initial presentation and reevaluation this included reviewing history and physical examination the patient discussed with the patient family members discussion with the admitting physician. Review of old charting that was available. This is not included the PA time. (Cheo Barnett) Disposition Decision Date: 06/28/17 Decision Time: 21:05 <Sandra Marin - Last Filed: 06/28/17 21:03> <Cheo Barnett - Last Filed: 06/28/17 21:48> Clinical Impression: Atypical pneumonia, UTI (urinary tract infection), Weakness, Dehydration, Sepsis, Atrial fibrillation with rapid ventricular response, CHF (congestive heart failure) Disposition: ADMITTED IP TO THIS [facility] Condition: Stable Referrals: Neena Bellamy MD [Primary Care Provider] - 1-2 days
[2017-06-28 19:49] LABS: Basophils % (A) 1 %; Eosinophils # (A) 0.1 k/uL (0-0.7); Eosinophils % (A) 1 %; HCT 37.1 % (34.0-46.0); HGB 12.6 gm/dL (11.4-16.0); Lymphocytes # (A) 0.6 k/uL (1.0-4.8); Lymphocytes % (A) 10 %; MCH 29.6 pg (25.0-35.0); MCHC 33.9 g/dL (31.0-37.0); MCV 87.2 fL (80.0-100.0); Mean Platelet Volume 9.1; Monocytes # (A) 0.4 k/uL (0-1.0); Monocytes % (A) 6 %; Neutrophils # (A) 5.2 k/uL (1.3-7.7); Neutrophils % (A) 79 %; Platelet Count 144 k/uL (150-450); RBC 4.26 m/uL (3.80-5.40); RDW 14.1 % (11.5-15.5); WBC 6.6 k/uL (3.8-10.6)
[2017-06-28 20:00] LABS: Albumin 3.7 g/dL (3.5-5.0); Calcium 9.5 mg/dL (8.4-10.2); Potassium 4.2 mmol/L (3.5-5.1); Total Bilirubin 0.8 mg/dL (0.2-1.3); Total Protein 6.6 g/dL (6.3-8.2)
[2017-06-28 20:02] LABS: INR 1.1 (<1.2); Partial Thromboplastin Time 25.7 sec (22.0-30.0); Prothrombin Time 10.5 sec (9.0-12.0)
[2017-06-28 20:31] LABS: Creatine Kinase MB 0.6 ng/mL (0.0-2.4); Troponin I 0.024 ng/mL (0.000-0.034)
--- NOTE | 2017-06-28 20:36 | XR ---
EXAMINATION TYPE: XR chest 2V DATE OF EXAM: 06/28/2017 COMPARISON: 04/30/2017 HISTORY: Fever, cough, and congestion TECHNIQUE: Frontal and lateral views of the chest are obtained. FINDINGS: There is mild interstitial prominence in comparison to the prior exam of 05/02/2017. There i s no focal air space opacity, pleural effusion, or pneumothorax seen. The cardiac silhouette size is within normal limits. The osseous structures are intact. Chronic wedge compression deformities are unchanged from the exam of 04/28/2017 at approximately the T9 and T8 vertebral bodies. There is diffu se osseous demineralization. Cardiomediastinal silhouette is upper limits of normal. IMPRESSION: Increased interstitial prominence in comparison to the prior exam and may represent atyp ical pneumonia or bronchitis. No focal consolidation.
[2017-06-28] MEDS ORDERED: methylPREDNISolone SOD SUCCI 125 MG/2 ML VIAL IV STA (20:37)
[2017-06-28] MEDS ORDERED: IPRATROPIUM-ALBUTEROL 3 ML NEB INHALATION STA (20:37)
[2017-06-28] MEDS ORDERED: PIPERACILLIN-TAZOBACTAM 3.375 GM in DEXTROSE/WATER 1 50ML.BAG IVPB STA (20:37)
[2017-06-28 20:54] LABS: Appearance,Urine Clear (Clear); Bacteria,Urine Rare /hpf; Bilirubin,Urine Negative (Negative); Blood,Urine Negative (Negative); Color,Urine Yellow; Glucose,Urine (UA) Negative (Negative); Ketones,Urine Negative (Negative); Leukocyte Esterase,Urine Trace (Negative); Mucus,Urine Rare /hpf; Nitrite,Urine Negative (Negative); Protein,Urine 2+ (Negative); RBC,Urine 5 /hpf (0-5); Specific Gravity,Urine 1.015 (1.001-1.035); Squamous Epithelial Cell,Urine <1 /hpf (0-4); Urobilinogen,Urine <2.0 mg/dL (<2.0); WBC,Urine 19 /hpf (0-5)
[2017-06-28] MEDS ORDERED: METOPROLOL TARTRATE 5 MG/5 ML VIAL IVP STA (21:03)
[2017-06-28] MEDS ORDERED: LEVOFLOXACIN 750MG-D5W PMX 750 MG in DEXTROSE/WATER 1 150ML.BAG IVPB STA (21:42)
[2017-06-28] MEDS ORDERED: FUROSEMIDE 10 MG/ML 4 ML VIAL IV STA (21:42)
[2017-06-28] MEDS ORDERED: PNEUMONIA PROTOCOL UTILIZED 1 EACH MISC PO PRN (21:42)
[2017-06-28] MEDS ORDERED: IPRATROPIUM-ALBUTEROL 3 ML NEB INHALATION PRN (21:44)
[2017-06-28] MEDS: SODIUM CHLORIDE 0.9% 1,000 ML IV SCH (22:31)
[2017-06-28] MEDS: GABAPENTIN 300 MG CAP PO SCH (22:42)
[2017-06-28] MEDS ORDERED: BENZONATATE 100 MG CAP PO PRN (22:47)
--- NOTE | 2017-06-28 22:52 | P.HPIM ---
History of Present Illness H&P Date: 06/28/17 Chief Complaint: shortness of breath Patient is a 89-year-old female with a past medical history of hypertension, diabetes mellitus type 2, hypothyroidism, GERD, chronic kidney disease, and atrial fibrillation who presented to the emergency department with complaints of shortness of breath. In the emergency department she underwent an extensive exam. On her initial vital signs she was found to be febrile with a temp of 100.7 and slightly tachycardic at 114. She then went into A. fib with RVR with heart rates up to 140. Initial laboratory analysis was essentially unremarkable. Chest x-ray revealed possible atypical pneumonia with increased interstitial prominence. Her BNP was slightly elevated but on physical exam she did not appear to have congestive heart failure. She was started on bronchodilators, steroids, Levaquin, and Zosyn. Arrangements were made for admission to [facility]. Patient seen and examined at bedside. She tells me that her shortness of breath started approximately 2 weeks ago. At that point in time she was at [facility] and they started her on an inhaler. She was disc discharged 2 nights ago. She states that her shortness of breath has been worsening. Her cough is nonproductive. It is associated with rib pain across her abdomen and back with coughing. She states she has been wheezing. She has not been on any antibiotics at [facility]. She also complains of shoulder pain. She has had a headache for the last 2 days. She is also complaining of a runny nose. She denies any nasal congestion, postnasal drip, or sore throat. She has not had any fevers or chills. She complains of stress incontinence with her cough. She has had a decreased appetite and believe she has lost several pounds over the last month. She states that for the last 2 days she has had increasing weakness and fatigue. She felt as though she had pneumonia. She has not had any nausea, vomiting, diarrhea, or constipation. She confirms that she is a DO NOT RESUSCITATE. She does not like CPR or intubation. Her son is her power of senior attorney. She states her family knows her wishes. She sees Dr. Bellamy but has not seen her since being discharged from [facility]. 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 Review of Systems Pertinent positives and negatives as per HPI. Remainder of 12 point review of systems is negative. Past Medical History Past Medical History: Atrial Fibrillation, Diabetes Mellitus, GERD/Reflux, Hypertension, Thyroid Disorder Additional Past Medical History / Comment(s): kidney disease. hypothyroidism. History of Any Multi-Drug Resistant Organisms: None Reported Past Surgical History: Cholecystectomy, Joint Replacement, Orthopedic Surgery Additional Past Surgical History / Comment(s): back. right knee replacement. bilateral feet. Cataracts. Bilateral carpal tunnel. Past Anesthesia/Blood Transfusion Reactions: No Reported Reaction Past Psychological History: No Psychological Hx Reported Smoking Status: Former smoker Past Alcohol Use History: None Reported Past Drug Use History: None Reported Additional History: Lives with her son, [id number], and granddaughter. Uses a walker. - Past Family History family Additional Family Medical History / Comment(s): denies family history of CAD or cancer Medications and Allergies Home Medications Medication Instructions Recorded Confirmed Type Apixaban [Eliquis] 2.5 mg PO BID 04/28/17 06/28/17 History Ascorbic Acid [Vitamin C] 500 mg PO QAM 04/28/17 06/28/17 History Cholecalciferol [Vitamin D3] 1,000 unit PO QAM 04/28/17 06/28/17 History Enalapril/Hydrochlorothiazide 2 tab PO DAILY 04/28/17 06/28/17 History [Enalapril-Hctz 10-25 mg Tablet] Levothyroxine Sodium [Synthroid] 25 mcg PO QAM 04/28/17 06/28/17 History Omeprazole 20 mg PO QAM 04/28/17 06/28/17 History Pioglitazone HCl 15 mg PO QAM 04/28/17 06/28/17 History Tolterodine ER [Detrol LA] 4 mg PO QAM 04/28/17 06/28/17 History Acetaminophen Tab [Tylenol] 650 mg PO Q6HR PRN #0 tab 05/16/17 06/28/17 Rx Acetaminophen [Tylenol] 650 mg PO QAM 06/28/17 06/28/17 History Gabapentin [Neurontin] 300 mg PO TID@0600,1400,2200 06/28/17 06/28/17 History Ipratropium-Albuterol Nebulize 3 ml INHALATION RT-Q4H PRN 06/28/17 06/28/17 History [Duoneb 0.5 mg-3 mg/3 ml Soln] Magnesium Oxide [Mag-Ox] 400 mg PO QAM 06/28/17 06/28/17 History Melatonin 3 mg PO HS PRN 06/28/17 06/28/17 History Allergies Allergy/AdvReac Type Severity Reaction Status Date / Time adhesive tape Allergy Itching Verified 06/28/17 19:21 Physical Exam Osteopathic Statement: *. No significant issues noted on an osteopathic structural exam other than those noted in the History and Physical/Consult. Vitals: Vital Signs Temp Pulse Resp BP Pulse Ox 06/28/17 21:42 112 H 18 164/91 95 06/28/17 21:27 103 H 16 06/28/17 21:17 114 H 18 06/28/17 21:14 121 H 22 171/120 94 L 06/28/17 19:54 140 H 20 172/115 96 06/28/17 18:34 100.7 F H 114 H 18 182/115 95 Intake and Output 06/28/17 06/28/17 06/28/17 06:59 14:59 22:59 Other: Weight 101.605 kg General: Ill appearing, no distress, appears younger than stated age, obese, Derm: no unusual rashes/lesions Multiple ecchymoses in various stages of healing , warm, dry Head: atraumatic, normocephalic, symmetric Eyes: EOMI, no lid lag, anicteric sclera, pupils equal round reactive to light ENT: Nose and ears atraumatic, no thrush, no pharyngeal erythema Neck: No thyromegaly, no cervical lymphadenopathy, trachea midline, supple Mouth: no lip lesion, mucous membranes dry Cardiovascular: S1-S2 regular and tachycardic, no murmur, positive posterior tibial pulse bilateral, no edema, capillary refill less than 2 seconds Lungs: Wheeze bilaterally, no rhonchi, no rales , no accessory muscle use Abdominal: soft, nontender to palpation, no guarding, no appreciable organomegaly, normal bowel sounds Ext: no gross muscle atrophy, muscle strength 5 out of 5 in all 4 extremities grossly, no contractures, Neuro: CN II-XI grossly intact, light touch intact all 4 extremities, finger to nose within normal limits, Psych: Alert, oriented, appropriate affect Results CBC & Chem 7: 06/28/17 19:38 06/28/17 19:38 Labs: Abnormal Lab Results - Last 24 Hours (Table) 06/28/17 06/28/17 06/28/17 Range/Units 19:38 19:38 20:42 Plt Count 144 L (150-450) k/uL Lymphocytes # 0.6 L (1.0-4.8) k/uL Sodium 136 L (137-145) mmol/L BUN 19 H (7-17) mg/dL Glucose 159 H (74-99) mg/dL Urine Protein 2+ H (Negative) Ur Leukocyte Esterase Trace H (Negative) Urine WBC 19 H (0-5) /hpf Urine Bacteria Rare H (None) /hpf Urine Mucus Rare H (None) /hpf Chest x-ray: report reviewed Thrombosis Risk Factor Assmnt - DVT/VTE Prophylaxis DVT/VTE Prophylaxis: Pharmacologic Prophylaxis ordered Assessment and Plan Assessment: Health care associated pneumonia - Levaquin and zosyn - gentle IVF, hold HCTZ - sputum and blood cultures - Pulmonary hygiene - repeat CXR in AM - ? component of COPD- add bronchodilators and steroids. Consider outpatient PFT A fib with RVR - metoprolol VIP - tele - Not on any rate controlling medications will start metoprolol 25 mg BID - Check TSH and magnesium - on eliquis Elevated BNP - Does not clinically appear to have acute exacerbation of CHF - Will check echo, strict I and O and monitor fluid status closely HTN urgency - HCTZ on hold with A fib and PNA - continue lisinopril - metoprolol started - follow BP DM 2 - hold actos - SSI - A1C 7.1 05/13/17 Hypothyroidism - synthroid - check TSH Morbid obesity with BMI 35.1 - structure outpatient weight loss CHronic: CKD GERD Surrogate decision-maker: Son Brain CODE STATUS:DNR DVT prophylaxis: ELiquis Discussed with: Patient, ED physician Anticipated discharge: 48-[address]: home with home health A total of 65 minutes was spent on the care of this complex patient more than 50 % of the time was spent in counseling and care coordination.
[2017-06-29] MEDS: METOPROLOL TARTRATE 25 MG TAB PO SCH ×3 (02:31→21:03)
[2017-06-29] MEDS: MAGNESIUM SULFATE-D5W PMX 1 GM in DEXTROSE/WATER 1 100ML.BAG IVPB SCH ×4 (03:15→06:57)
[2017-06-29 03:41] LABS: Glucose,Whole Blood 292 mg/dL (75-99)
[2017-06-29] MEDS: PIPERACILLIN-TAZOBACTAM 3.375 GM in DEXTROSE/WATER 1 50ML.BAG IVPB SCH ×3 (06:19→22:56)
[2017-06-29] MEDS: GABAPENTIN 300 MG CAP PO SCH ×3 (06:45→21:03)
[2017-06-29] MEDS: LEVOTHYROXINE 25 MCG TAB PO SCH (06:45)
[2017-06-29 07:13] LABS: HCT 37.7 % (34.0-46.0); HGB 11.8 gm/dL (11.4-16.0); MCH 28.1 pg (25.0-35.0); MCHC 31.2 g/dL (31.0-37.0); MCV 89.9 fL (80.0-100.0); Platelet Count 129 k/uL (150-450); RBC 4.19 m/uL (3.80-5.40); RDW 14.2 % (11.5-15.5); WBC 4.6 k/uL (3.8-10.6)
[2017-06-29 07:28] LABS: Calcium 8.9 mg/dL (8.4-10.2); Magnesium 2.5 mg/dL (1.6-2.3)
[2017-06-29 07:37] LABS: Glucose,Whole Blood 393 mg/dL (75-99)
[2017-06-29] MEDS ORDERED: INSULIN REGULAR 100 UNIT/ML VIAL SQ ONE ×2 (07:59→12:56)
[2017-06-29] MEDS: INSULIN ASPART 100 UNIT/ML 1 ML 10 ML VIAL SQ SCH ×4 (08:00→20:57)
[2017-06-29] MEDS: ASCORBIC ACID 500 MG TAB PO SCH (08:22)
[2017-06-29] MEDS: CHOLECALCIFEROL 1,000 UNIT TAB PO SCH (08:22)
[2017-06-29] MEDS: MAGNESIUM OXIDE 400 MG TAB PO SCH (08:23)
[2017-06-29] MEDS: PANTOPRAZOLE 40 MG TABLET PO SCH (08:23)
[2017-06-29] MEDS: APIXABAN 2.5 MG TABLET PO SCH ×2 (08:23→21:03)
[2017-06-29] MEDS: OXYBUTYNIN XL 5 MG TAB.ER.24 PO SCH (08:24)
--- NOTE | 2017-06-29 08:26 | XR ---
EXAMINATION TYPE: XR chest 2V DATE OF EXAM: 06/29/2017 COMPARISON: Prior chest x-ray 06/28/2017 HISTORY: Pneumonia, abnormal chest x-ray TECHNIQUE: Frontal and lateral views of the chest are obtained. FINDINGS: Patient is rotated. Cardiomediastinal silhouette, pulmonary vascularity and estela not signi ficantly changed accounting for differences in technique. Interstitium is increased. No evident pneum othorax or pleural effusion. There are overlying cardiac leads. Lungs show a similar appearance. Ante rior wedge compression deformity within the mid thoracic spine again noted. Prominent lung volumes garner ggest underlying COPD. IMPRESSION: Rotated exam. Suspect some underlying interstitial changes within the lungs. Follow-up P A and lateral chest x-ray when stable.
[2017-06-29] MEDS: LISINOPRIL 20 MG TAB PO SCH (08:48)
[2017-06-29] MEDS ORDERED: ACETAMINOPHEN TAB 325 MG TAB PO SCH (09:00)
[2017-06-29] MEDS ORDERED: predniSONE 20 MG TAB PO SCH (09:00)
[2017-06-29] MEDS ORDERED: PIOGLITAZONE 15 MG TAB PO SCH (09:00)
[2017-06-29] MEDS ORDERED: HYDROCHLOROTHIAZIDE 50 MG TAB PO SCH (09:00)
[2017-06-29] MEDS: ALBUTEROL NEBULIZED 2.5 MG/3 ML INHALATION PRN (09:48)
--- NOTE | 2017-06-29 11:31 | CONS ---
CONSULTATION CHIEF COMPLAINT: Shortness of breath. This is an 89-year-old lady with history of hypertension, diabetes, hypothyroidism, chronic renal insufficiency, and atrial fibrillation, who presented to hospital with shortness of breath. She had fever of 100.7 and was slightly tachycardic. Subsequently went into atrial fibrillation with rapid ventricular rate for which Cardiology had been consulted. Patient has significant bronchospasm and is short of breath as a result. She is currently being treated with bronchodilators, steroids, Levaquin and Zosyn with improvement in her symptoms. The patient's shortness of breath started about 2 weeks ago. She was at [facility], was started on inhalers. For the last few days, she has not been taking any antibiotics. She is currently on Eliquis for anticoagulation. At the time of my evaluation in the emergency room, she appears comfortable at rest. Heart rate is 84 beats per minute. I do not have any EKG in the system. PAST MEDICAL HISTORY: Past medical history is significant for COPD, hypothyroidism, chronic atrial fibrillation, hypertension. MEDICATIONS: Medications include DuoNeb, enalapril hydrochlorothiazide, Eliquis 2.5 b.i.d., Detrol LA, pioglitazone, omeprazole, magnesium oxide, Synthroid, Neurontin, vitamin D, C and Tylenol. ALLERGIES: Allergic to ADHESIVE TAPE. FAMILY HISTORY: Family history is negative for premature coronary artery disease. SOCIAL HISTORY: Social history is negative for current smoking, ETOH abuse or drug abuse. REVIEW OF SYSTEMS: HEENT is unremarkable. CARDIAC: As described above. RESPIRATORY: As described above. GI: Negative. GENITOURINARY: Negative. ALLERGY/IMMUNOLOGY: Negative. MUSCULOSKELETAL: Significant for arthritis. PSYCHOSOCIAL: Negative ENDOCRINE: Negative. DERM;: Negative. CONSTITUTIONAL: Negative. ONCOLOGICAL: Negative. Rest of the systems review is not relevant. PHYSICAL EXAMINATION: On exam, patient is comfortable at rest. Heart rate is 80 beats per minute. Blood pressure 126/75, respiratory rate is 18. There is no jugular venous distention. Chest exam reveals diffuse bilateral rhonchi with diminished air entry. Heart exam reveals first and second heart sounds. No gallop. I do not hear any murmurs. Abdomen is soft, nontender. Examination of the extremities reveals trace edema. Peripheral pulses are palpable. An EKG on her from 05/12/2017 shows normal sinus rhythm. LABS: Labs on this admission show that the hemoglobin is 11.8, creatinine is 1.1. Blood sugars are elevated. Hemoglobin is 11.8, platelet count is 129. ASSESSMENT: 1. Acute exacerbation of chronic obstructive pulmonary disease. 2. Chronic atrial fibrillation with atrial fibrillation with rapid ventricular rate. 3. Hypertension. PLAN: I am going to obtain an EKG, 2D echo, continue the beta-blockers and Eliquis that she is currently on. If she develops further episodes of atrial fibrillation, I will consider starting her on oral Cardizem or increase the dose of Lopressor. MMODL / IJN: [id number] /
--- NOTE | 2017-06-29 12:09 | P.PN ---
Subjective Progress Note Date: 06/29/17 Patient complaining of shortness of breath, reports that she got sick again after returning home from [facility] she was home for approximately 2 days and began having shortness of breath, other than that no complaints of chest pain. Presented with low-grade fever earlier this morning Objective - Vital Signs Vital signs: Vital Signs Temp 96.9 F L 06/29/17 08:14 Pulse 86 06/29/17 09:58 Resp 20 06/29/17 08:14 BP 126/75 06/29/17 08:14 Pulse Ox 97 06/29/17 08:14 Intake & Output 06/28/17 06/29/17 06/29/17 18:59 06:59 18:59 Weight 101.605 kg - Exam Constitutional: No acute distress, conversant, pleasant Eyes: Anicteric sclerae, moist conjunctiva, no lid-lag, PERRLA ENMT: NC/AT,Oropharynx clear, no erythema, exudates Neck:Supple, FROM, no masses, or JVD, No carotid bruits; No thyromegaly Lungs: Mild wheezes bilaterally Clear to percussion, Normal respiratory effort, no accessory muscle use on 2 L nasal cannula Cardiovascular: Heart regular in rate and rhythm, No murmurs, gallops, or rubs no peripheral edema Abdominal: Soft Nontender, nom distended, no guarding, no rebound or rigidity, Normoactive bowel sounds No hepatomegaly, No splenomegaly, No palpable mass No abdominal wall hernia noted Skin: Normal temperature, tone, texture, turgor, No induration No subcutaneous nodules, No rash, lesions, No ulcers Extremities:No digital cyanosis No clubbing, Pedal pulses intact and symmetrical Radial pulses intact and symmetrical Normal gait and station, No calf tenderness Psychiatric: Alert and oriented to person, place and time, Appropriate affect Intact judgement Neuro: Muscles Strength 5/5 in all 4 extremities, Sensation to light touch grossly present throughout, Cranial nerves II-XII grossly intact. No focal sensory deficits - Labs CBC & Chem 7: 06/29/17 06:37 06/29/17 06:37 Labs: Abnormal Lab Results - Last 24 Hours (Table) 06/28/17 06/28/17 06/28/17 Range/Units 19:38 19:38 20:42 Plt Count 144 L (150-450) k/uL Lymphocytes # 0.6 L (1.0-4.8) k/uL Sodium 136 L (137-145) mmol/L BUN 19 H (7-17) mg/dL Creatinine (0.52-1.04) mg/dL Glucose 159 H (74-99) mg/dL POC Glucose (mg/dL) (75-99) mg/dL Magnesium (1.6-2.3) mg/dL Urine Protein 2+ H (Negative) Ur Leukocyte Esterase Trace H (Negative) Urine WBC 19 H (0-5) /hpf Urine Bacteria Rare H (None) /hpf Urine Mucus Rare H (None) /hpf 06/28/17 06/29/17 06/29/17 Range/Units 23:18 03:36 06:37 Plt Count 129 L (150-450) k/uL Lymphocytes # (1.0-4.8) k/uL Sodium (137-145) mmol/L BUN (7-17) mg/dL Creatinine (0.52-1.04) mg/dL Glucose (74-99) mg/dL POC Glucose (mg/dL) 292 H (75-99) mg/dL Magnesium 1.4 L (1.6-2.3) mg/dL Urine Protein (Negative) Ur Leukocyte Esterase (Negative) Urine WBC (0-5) /hpf Urine Bacteria (None) /hpf Urine Mucus (None) /hpf 06/29/17 06/29/17 Range/Units 06:37 07:33 Plt Count (150-450) k/uL Lymphocytes # (1.0-4.8) k/uL Sodium 135 L (137-145) mmol/L BUN 23 H (7-17) mg/dL Creatinine 1.11 H (0.52-1.04) mg/dL Glucose 364 H (74-99) mg/dL POC Glucose (mg/dL) 393 H (75-99) mg/dL Magnesium 2.5 H (1.6-2.3) mg/dL Urine Protein (Negative) Ur Leukocyte Esterase (Negative) Urine WBC (0-5) /hpf Urine Bacteria (None) /hpf Urine Mucus (None) /hpf Microbiology - Last 24 Hours (Table) 06/28/17 20:42 Urine Culture - Preliminary Urine,Voided Assessment and Plan Assessment: Sepsis * Secondary to problem number next * Had a previous elevated fever 100.1, without leukocytosis * continue with antibiotic regimen Health care associated pneumonia - Levaquin and zosyn - gentle IVF, resume HCTZ - sputum and blood cultures - Pulmonary hygiene - ? component of COPD- add bronchodilators and steroids. Consider outpatient PFT A fib with RVR - tele - Not on any rate controlling medications will start metoprolol 25 mg BID -recheck magnesium patient previously hypomagnesemic, TSH within normal limits - on eliquis HTN urgency - We'll resume HCTZ - continue lisinopril - metoprolol started - follow BP DM 2 with hyperglycemia * Increase insulin correctional scale C - hold actos - SSI - A1C 7.1 05/13/17 Hypothyroidism - synthroid -TSH normal Morbid obesity with BMI 35.1 - structure outpatient weight loss CHronic: CKD GERD
[2017-06-29 12:26] LABS: Glucose,Whole Blood 370 mg/dL (75-99)
[2017-06-29] MEDS: IPRATROPIUM-ALBUTEROL 3 ML NEB INHALATION SCH ×4 (13:10→19:55)
[2017-06-29 17:23] LABS: Glucose,Whole Blood 399 mg/dL (75-99)
[2017-06-29] MEDS: SODIUM CHLORIDE 0.9% 1,000 ML IV SCH (17:25)
[2017-06-29] MEDS: LEVOFLOXACIN 750MG-D5W PMX 750 MG in DEXTROSE/WATER 1 150ML.BAG IVPB SCH (20:36)
[2017-06-29 20:55] LABS: Glucose,Whole Blood 313 mg/dL (75-99)
[2017-06-29] MEDS: MELATONIN 3 MG TABLET PO PRN (20:58)
[2017-06-30 06:27] LABS: Glucose,Whole Blood 122 mg/dL (75-99)
[2017-06-30] MEDS: INSULIN ASPART 100 UNIT/ML 1 ML 10 ML VIAL SQ SCH ×4 (07:00→21:43)
[2017-06-30] MEDS: PIPERACILLIN-TAZOBACTAM 3.375 GM in DEXTROSE/WATER 1 50ML.BAG IVPB SCH ×3 (07:01→21:42)
[2017-06-30] MEDS: GABAPENTIN 300 MG CAP PO SCH ×3 (07:02→21:43)
[2017-06-30] MEDS: LEVOTHYROXINE 25 MCG TAB PO SCH (07:02)
[2017-06-30] MEDS: PANTOPRAZOLE 40 MG TABLET PO SCH (07:02)
[2017-06-30] MEDS: MAGNESIUM OXIDE 400 MG TAB PO SCH (08:07)
[2017-06-30] MEDS: METOPROLOL TARTRATE 25 MG TAB PO SCH ×2 (08:07→21:43)
[2017-06-30] MEDS: CHOLECALCIFEROL 1,000 UNIT TAB PO SCH (08:07)
[2017-06-30] MEDS: ASCORBIC ACID 500 MG TAB PO SCH (08:07)
[2017-06-30] MEDS: HYDROCHLOROTHIAZIDE 25 MG TAB PO SCH (08:07)
[2017-06-30] MEDS: predniSONE 20 MG TAB PO SCH (08:07)
[2017-06-30] MEDS: LISINOPRIL 20 MG TAB PO SCH (08:07)
[2017-06-30] MEDS: OXYBUTYNIN XL 5 MG TAB.ER.24 PO SCH (08:07)
[2017-06-30] MEDS: APIXABAN 2.5 MG TABLET PO SCH ×2 (08:07→21:43)
[2017-06-30] MEDS: IPRATROPIUM-ALBUTEROL 3 ML NEB INHALATION SCH ×4 (08:22→19:34)
--- NOTE | 2017-06-30 09:38 | P.PN ---
Subjective Progress Note Date: 06/30/17 Principal diagnosis: Patient still feels weak decreased by mouth all intake is not complaining of any significant chest pain or significant shortness of breath at rest No vomiting Review of systems since systems has been reviewed all negative and positive findings as per HPI Laboratory Results - last 24 hr 06/29/17 06/29/17 06/29/17 12:21 17:08 20:46 POC Glucose (mg/dL) 370 H 399 H 313 H POC Glu Radiator Tester ID Hilary Alberts Darla Rowley, Cheryl 06/30/17 06:04 POC Glucose (mg/dL) 122 H POC Glu Radiator Tester ID Darlene Cedeño Vital Signs Temp Pulse Resp BP Pulse Ox 100.7 F H 114 H 18 182/115 95 06/28/17 18:34 06/28/17 18:34 06/28/17 18:34 06/28/17 18:34 06/28/17 18:34 Vital Signs - 24 hr 06/29/17 06/29/17 06/29/17 09:48 09:58 12:24 Temperature 97.1 F L Pulse Rate 84 86 85 Pulse Rate [ Pulse Oximetery ] Respiratory 24 Rate Blood Pressure 145/77 Blood Pressure [Right Arm] O2 Sat by Pulse 97 Oximetry 06/29/17 06/29/17 06/29/17 13:10 13:20 13:43 Temperature Pulse Rate 73 78 90 Pulse Rate [ Pulse Oximetery ] Respiratory 20 Rate Blood Pressure 147/80 Blood Pressure [Right Arm] O2 Sat by Pulse 99 Oximetry 06/29/17 06/29/17 06/29/17 15:21 15:52 16:11 Temperature 97 F L Pulse Rate 80 84 Pulse Rate [ 83 Pulse Oximetery ] Respiratory 18 Rate Blood Pressure Blood Pressure 121/61 [Right Arm] O2 Sat by Pulse 100 Oximetry 06/29/17 06/29/17 06/29/17 19:50 19:56 20:06 Temperature 98.1 F Pulse Rate 96 100 Pulse Rate [ 105 H Pulse Oximetery ] Respiratory 19 Rate Blood Pressure Blood Pressure 113/72 [Right Arm] O2 Sat by Pulse 97 97 Oximetry 06/29/17 06/30/17 06/30/17 20:10 00:05 04:05 Temperature 97.7 F 98.8 F Pulse Rate Pulse Rate [ 105 H 102 H 85 Pulse Oximetery ] Respiratory 19 19 18 Rate Blood Pressure Blood Pressure 95/48 119/86 [Right Arm] O2 Sat by Pulse 99 100 Oximetry 06/30/17 06/30/17 06/30/17 08:07 08:22 08:39 Temperature 97.1 F L Pulse Rate 92 96 Pulse Rate [ 83 Pulse Oximetery ] Respiratory 18 Rate Blood Pressure Blood Pressure 135/82 [Right Arm] O2 Sat by Pulse 99 Oximetry Constitutional: No acute distress, conversant, pleasant Eyes: Anicteric sclerae, moist conjunctiva, no lid-lag PERRLA ENMT: NC/AT Oropharynx clear, no erythema, exudates Neck: Supple, FROM, no masses, or JVD No carotid bruits No thyromegaly Lungs: Clear to auscultation Clear to percussion Normal respiratory effort, no accessory muscle use Cardiovascular: Heart regular in rate and rhythm, No murmurs, gallops, or rubs No peripheral edema Abdominal: Soft Nontender, no guarding, rebound or rigidity Abdomen moving with respiration Normoactive bowel sounds No hepatomegaly, No splenomegaly No palpable mass No abdominal wall hernia noted Skin: Normal temperature, tone, texture, turgor No induration No subcutaneous nodules No rash, lesions No ulcers Extremities: No digital cyanosis No clubbing Pedal pulses intact and symmetrical Radial pulses intact and symmetrical Normal gait and station No calf tenderness Psychiatric:Alert and oriented to person, place and time Appropriate affect Intact judgement Neuro: Muscles Strength 5/5 in all 4 extremities Sensation to light touch grossly present throughout Cranial nerves II-XII grossly intact No focal sensory deficits Sepsis Health care associated pneumonia, overall clinically improving and does not appear to be in distress we'll continue current management with Levaquin and Zosyn Will repeat blood work - Levaquin and zosyn - gentle IVF, - Pulmonary hygiene - ? component of COPD- on prednisone and inhalers currently stable and does not appear to be in distress A fib with RVR - tele - On Lopressor 25 mg by mouth twice a day - on eliquis HTN urgency . Resolved - Continue HCTZ - continue lisinopril - metoprolol started - follow BP DM 2 with hyperglycemia - Patient is on steroids so we'll monitor closely - SSI - A1C 7.1 05/13/17 Hypothyroidism - synthroid -TSH normal Morbid obesity with BMI 35.1 - structure outpatient weight loss CHronic: CKD GERD Overall the condition of the patient is stable patient has been admitted multiple times with pneumonia consider rehab Discussed with the patient Objective - Vital Signs Vital signs: Vital Signs Temp 97.1 F L 06/30/17 08:07 Pulse 96 06/30/17 08:39 Resp 18 06/30/17 08:07 BP 135/82 06/30/17 08:07 Pulse Ox 99 06/30/17 08:07 Intake & Output 06/29/17 06/30/17 06/30/17 18:59 06:59 18:59 Intake Total 1530 118 Output Total 200 200 Balance 1330 -82 Weight 100.5 kg 101.3 kg Intake: Intake, IV Titration 1050 Amount Levofloxacin 750Mg-D5w 300 Pmx 750 mg In Dextrose/ Water 1 150ml.bag @ 100 mls/hr IVPB Q48H [facility] Rx#: [id number] Piperacillin-Tazobactam 3 50 .375 gm In Dextrose/Water 1 50ml.bag @ 12.5 mls/hr IVPB Q8H [facility] Rx#: [id number] Sodium Chloride 0.9% 1, 700 000 ml @ 50 mls/hr IV . Q20H [facility] Rx#:[id number] Oral 480 118 Output: Urine 200 200 Other: Voiding Method Bedside Commode Bedside Commode # Voids 2 - Labs CBC & Chem 7: 06/29/17 06:37 06/29/17 06:37 Labs: Abnormal Lab Results - Last 24 Hours (Table) 06/29/17 06/29/17 06/29/17 Range/Units 12:21 17:08 20:46 POC Glucose (mg/dL) 370 H 399 H 313 H (75-99) mg/dL 06/30/17 Range/Units 06:04 POC Glucose (mg/dL) 122 H (75-99) mg/dL Microbiology - Last 24 Hours (Table) 06/28/17 19:38 Blood Culture - Preliminary Blood No Growth after 24 hours 06/28/17 20:42 Urine Culture - Preliminary Urine,Voided
[2017-06-30 11:29] LABS: Basophils % (A) 0 %; Eosinophils % (A) 0 %; HCT 34.5 % (34.0-46.0); HGB 11.3 gm/dL (11.4-16.0); Lymphocytes # (A) 0.4 k/uL (1.0-4.8); Lymphocytes % (A) 5 %; MCH 28.9 pg (25.0-35.0); MCHC 32.7 g/dL (31.0-37.0); MCV 88.3 fL (80.0-100.0); Mean Platelet Volume 8.7; Monocytes # (A) 0.3 k/uL (0-1.0); Monocytes % (A) 4 %; Neutrophils # (A) 7.7 k/uL (1.3-7.7); Neutrophils % (A) 89 %; Platelet Count 145 k/uL (150-450); RBC 3.91 m/uL (3.80-5.40); RDW 14.1 % (11.5-15.5); WBC 8.6 k/uL (3.8-10.6)
--- NOTE | 2017-06-30 11:40 | P.PN ---
Subjective Progress Note Date: 06/30/17 Principal diagnosis: COPD, atrial fibrillation This is an 89-year-old female patient with history of hypertension, diabetes, hypothyroidism, chronic renal insufficiency, chronic persistent atrial fibrillation who presented to the hospital with symptoms of shortness of breath with associated cough. She was documented to have a fever of 100.7 and was slightly tachycardic on admission. Patient has history of A. fib, however while here was noted that her heart rate was up into the 05/03/1929 range. She is on Eliquis for anticoagulation. Patient was seen and examined this morning, blood pressure 126/78 with a heart rate in the 80s to 90s. 96% on 2 L of oxygen. White blood cell count 8.6, hemoglobin 11.3, platelet count 145. Objective - Vital Signs Vital signs: Vital Signs Temp 97.2 F L 06/30/17 11:00 Pulse 90 06/30/17 11:00 Resp 18 06/30/17 11:00 BP 126/79 06/30/17 11:00 Pulse Ox 96 06/30/17 11:00 Intake & Output 06/29/17 06/30/17 06/30/17 18:59 06:59 18:59 Intake Total 1530 118 Output Total 200 200 Balance 1330 -82 Weight 100.5 kg 101.3 kg Intake: Intake, IV Titration 1050 Amount Levofloxacin 750Mg-D5w 300 Pmx 750 mg In Dextrose/ Water 1 150ml.bag @ 100 mls/hr IVPB Q48H [facility] Rx#: [id number] Piperacillin-Tazobactam 3 50 .375 gm In Dextrose/Water 1 50ml.bag @ 12.5 mls/hr IVPB Q8H [facility] Rx#: [id number] Sodium Chloride 0.9% 1, 700 000 ml @ 50 mls/hr IV . Q20H [facility] Rx#:[id number] Oral 480 118 Output: Urine 200 200 Other: Voiding Method Bedside Commode Bedside Commode # Voids 2 - Exam PHYSICAL EXAMINATION: HEENT: Head is atraumatic, normocephalic. Pupils equal, round. Neck is supple. There is no elevated jugular venous pressure. HEART EXAMINATION: Heart S1 and S2 irregularly irregular CHEST EXAMINATION: And's reveal fine wheezing throughout. ABDOMEN: Soft, nontender. Bowel sounds are heard. No organomegaly noted. EXTREMITIES: 2+ peripheral pulses with no evidence of peripheral edema and no calf tenderness noted. NEUROLOGIC patient is awake, alert and oriented -3. . - Labs CBC & Chem 7: 06/29/17 06:37 06/29/17 06:37 Labs: Abnormal Lab Results - Last 24 Hours (Table) 06/29/17 06/29/17 06/29/17 Range/Units 12:21 17:08 20:46 POC Glucose (mg/dL) 370 H 399 H 313 H (75-99) mg/dL 06/30/17 Range/Units 06:04 POC Glucose (mg/dL) 122 H (75-99) mg/dL Microbiology - Last 24 Hours (Table) 06/28/17 19:38 Blood Culture - Preliminary Blood No Growth after 24 hours 06/28/17 20:42 Urine Culture - Preliminary Urine,Voided Assessment and Plan Plan: Assessment and plan #1 exacerbation of COPD with associated pneumonia #2 chronic persistent atrial fibrillation on Eliquis for anticoagulation #3 hypertensive urgency #4 diabetes #5 hypothyroidism #6 morbid obesity #7 chronic kidney disease From cardiology's perspective, we'll recommend to continue the patient on her current medications. We will follow her along with you now on an as-needed basis only, please don't hesitate to call with any questions.
[2017-06-30 11:49] LABS: Glucose,Whole Blood 229 mg/dL (75-99)
[2017-06-30] MEDS: SODIUM CHLORIDE 0.9% 1,000 ML IV SCH (12:29)
[2017-06-30] MEDS: ACETAMINOPHEN TAB 325 MG TAB PO PRN ×2 (16:41→21:43)
[2017-06-30 16:43] LABS: Glucose,Whole Blood 324 mg/dL (75-99)
[2017-06-30 21:03] LABS: Glucose,Whole Blood 260 mg/dL (75-99)
[2017-06-30] MEDS: MELATONIN 3 MG TABLET PO PRN (21:43)
[2017-07-01 06:00] LABS: Glucose,Whole Blood 162 mg/dL (75-99)
[2017-07-01] MEDS: PIPERACILLIN-TAZOBACTAM 3.375 GM in DEXTROSE/WATER 1 50ML.BAG IVPB SCH ×3 (06:36→23:00)
[2017-07-01] MEDS: INSULIN ASPART 100 UNIT/ML 1 ML 10 ML VIAL SQ SCH ×4 (06:36→20:51)
[2017-07-01] MEDS: LEVOTHYROXINE 25 MCG TAB PO SCH (06:37)
[2017-07-01] MEDS: ACETAMINOPHEN TAB 325 MG TAB PO PRN ×2 (06:37→23:06)
[2017-07-01] MEDS: GABAPENTIN 300 MG CAP PO SCH ×3 (06:37→20:31)
[2017-07-01] MEDS: PANTOPRAZOLE 40 MG TABLET PO SCH (06:37)
[2017-07-01 06:51] LABS: Basophils % (A) 0 %; Eosinophils % (A) 0 %; HCT 34.1 % (34.0-46.0); HGB 11.1 gm/dL (11.4-16.0); Lymphocytes # (A) 0.5 k/uL (1.0-4.8); Lymphocytes % (A) 8 %; MCH 28.6 pg (25.0-35.0); MCHC 32.6 g/dL (31.0-37.0); MCV 87.9 fL (80.0-100.0); Mean Platelet Volume 8.7; Monocytes # (A) 0.2 k/uL (0-1.0); Monocytes % (A) 4 %; Neutrophils # (A) 5.6 k/uL (1.3-7.7); Neutrophils % (A) 85 %; Platelet Count 151 k/uL (150-450); RBC 3.89 m/uL (3.80-5.40); RDW 14.2 % (11.5-15.5); WBC 6.5 k/uL (3.8-10.6)
--- NOTE | 2017-07-01 08:51 | P.PN ---
Subjective Progress Note Date: 07/01/17 Principal diagnosis: Patient feels weak today still complains of cough Not complaining of chest pain or vomiting Review of systems 10 systems has been reviewed Vital Signs 07/01/17 01:32 Temperature 97.4 F L Pulse Rate [ 84 Pulse Oximetery ] Respiratory 19 Rate Blood Pressure 105/71 [Right Arm] O2 Sat by Pulse 98 Oximetry Constitutional: No acute distress, conversant, pleasant Eyes: Anicteric sclerae, moist conjunctiva, no lid-lag ENMT: Cranial nerves grossly intact Neck: Supple, FROM, no masses, or JVD No carotid bruits No thyromegaly Lungs: Crackly bilaterally Cardiovascular: , No murmurs, gallops, or rubs S1-S2 Abdominal: Soft Nontender, no guarding, rebound or rigidity Abdomen moving with respiration Normoactive bowel sounds No hepatomegaly, No splenomegaly No palpable mass No abdominal wall hernia noted Skin: Normal temperature, tone, texture, Extremities: No digital cyanosis No clubbing Pedal pulses intact and symmetrical Radial pulses intact and symmetrical Normal gait and station No calf tenderness Psychiatric:Alert and oriented to person, place and time Appropriate affect Intact judgement Neuro: Generalized weakness Health care associated pneumonia, slowly improving patient has been admitted several times for pneumonia and has been just released from the [facility] before this admission Patient is still interested in going back to a rehab after discharge cont - Levaquin and zosyn - Pulmonary hygiene - ? component of COPD- on prednisone and inhalers currently stable and does not appear to be in distress A fib with RVR - Currently controlled cardiology following - on eliquis HTN urgency . Resolved - Continue HCTZ - continue lisinopril - metoprolol - follow BP DM 2 with hyperglycemia - Patient is on steroids so we'll monitor closely - SSI - A1C 7.1 05/13/17 Overall acceptable range Hypothyroidism - synthroid -TSH normal Morbid obesity with BMI 35.1 - structure outpatient weight loss CHronic: CKD GERD Overall the condition of the patient is stable patient still interested in going back to [facility] Discharge expected in 2-3 day Objective - Vital Signs Vital signs: Vital Signs Temp 97.4 F L 07/01/17 01:32 Pulse 84 07/01/17 01:32 Resp 19 07/01/17 01:32 BP 105/71 07/01/17 01:32 Pulse Ox 98 07/01/17 01:32 Intake & Output 06/30/17 07/01/17 07/01/17 18:59 06:59 18:59 Intake Total 794 390 Output Total 200 3 Balance 594 387 Intake: Intake, IV Titration 150 Amount Sodium Chloride 0.9% 1, 150 000 ml @ 50 mls/hr IV . Q20H [facility] Rx#:[id number] Oral 794 240 Output: Urine 200 3 Other: Voiding Method Bedside Commode Bedside Commode # Voids 1 2 - Labs CBC & Chem 7: 07/01/17 06:24 06/29/17 06:37 Labs: Abnormal Lab Results - Last 24 Hours (Table) 06/30/17 06/30/17 06/30/17 Range/Units 10:44 11:48 16:41 Hgb 11.3 L (11.4-16.0) gm/dL Plt Count 145 L (150-450) k/uL Lymphocytes # 0.4 L (1.0-4.8) k/uL POC Glucose (mg/dL) 229 H 324 H (75-99) mg/dL 06/30/17 07/01/17 07/01/17 Range/Units 20:45 05:58 06:24 Hgb 11.1 L (11.4-16.0) gm/dL Plt Count (150-450) k/uL Lymphocytes # 0.5 L (1.0-4.8) k/uL POC Glucose (mg/dL) 260 H 162 H (75-99) mg/dL Microbiology - Last 24 Hours (Table) 06/28/17 19:38 Blood Culture - Preliminary Blood No Growth after 48 hours 06/28/17 20:42 Urine Culture - Preliminary Urine,Voided Group D Enterococcus
[2017-07-01] MEDS: APIXABAN 2.5 MG TABLET PO SCH ×2 (08:55→20:31)
[2017-07-01] MEDS: HYDROCHLOROTHIAZIDE 25 MG TAB PO SCH (08:55)
[2017-07-01] MEDS: LISINOPRIL 20 MG TAB PO SCH (08:55)
[2017-07-01] MEDS: predniSONE 20 MG TAB PO SCH (08:55)
[2017-07-01] MEDS: OXYBUTYNIN XL 5 MG TAB.ER.24 PO SCH (08:55)
[2017-07-01] MEDS: CHOLECALCIFEROL 1,000 UNIT TAB PO SCH (08:55)
[2017-07-01] MEDS: METOPROLOL TARTRATE 25 MG TAB PO SCH ×2 (08:55→20:31)
[2017-07-01] MEDS: MAGNESIUM OXIDE 400 MG TAB PO SCH (08:55)
[2017-07-01] MEDS: ASCORBIC ACID 500 MG TAB PO SCH (08:56)
[2017-07-01] MEDS: IPRATROPIUM-ALBUTEROL 3 ML NEB INHALATION SCH ×4 (09:18→20:00)
[2017-07-01] MEDS: SODIUM CHLORIDE 0.9% 1,000 ML IV SCH (11:41)
[2017-07-01 11:49] LABS: Glucose,Whole Blood 204 mg/dL (75-99)
[2017-07-01] MEDS: ALBUTEROL NEBULIZED 2.5 MG/3 ML INHALATION PRN (11:57)
[2017-07-01 16:36] LABS: Glucose,Whole Blood 340 mg/dL (75-99)
[2017-07-01] MEDS: MELATONIN 3 MG TABLET PO PRN (20:34)
[2017-07-01 20:46] LABS: Glucose,Whole Blood 352 mg/dL (75-99)
[2017-07-01] MEDS: LEVOFLOXACIN 750MG-D5W PMX 750 MG in DEXTROSE/WATER 1 150ML.BAG IVPB SCH (21:16)
[2017-07-02 06:03] LABS: Glucose,Whole Blood 177 mg/dL (75-99)
[2017-07-02] MEDS: GABAPENTIN 300 MG CAP PO SCH ×3 (06:04→21:23)
[2017-07-02] MEDS: LEVOTHYROXINE 25 MCG TAB PO SCH (06:04)
[2017-07-02] MEDS: PIPERACILLIN-TAZOBACTAM 3.375 GM in DEXTROSE/WATER 1 50ML.BAG IVPB SCH (06:04)
[2017-07-02] MEDS: PANTOPRAZOLE 40 MG TABLET PO SCH (06:04)
[2017-07-02] MEDS: SODIUM CHLORIDE 0.9% 1,000 ML IV SCH ×3 (06:05→19:54)
[2017-07-02] MEDS: INSULIN ASPART 100 UNIT/ML 1 ML 10 ML VIAL SQ SCH ×4 (06:08→21:27)
[2017-07-02 06:14] LABS: Basophils % (A) 0 %; Eosinophils % (A) 0 %; HCT 32.6 % (34.0-46.0); HGB 10.3 gm/dL (11.4-16.0); Lymphocytes # (A) 0.7 k/uL (1.0-4.8); Lymphocytes % (A) 11 %; MCH 27.9 pg (25.0-35.0); MCHC 31.7 g/dL (31.0-37.0); Mean Platelet Volume 9.2; Monocytes # (A) 0.4 k/uL (0-1.0); Monocytes % (A) 7 %; Neutrophils # (A) 5.1 k/uL (1.3-7.7); Neutrophils % (A) 79 %; Platelet Count 151 k/uL (150-450); RBC 3.71 m/uL (3.80-5.40); RDW 14.3 % (11.5-15.5); WBC 6.4 k/uL (3.8-10.6)
[2017-07-02 06:32] LABS: Calcium 9.2 mg/dL (8.4-10.2); Potassium 3.8 mmol/L (3.5-5.1)
[2017-07-02] MEDS: IPRATROPIUM-ALBUTEROL 3 ML NEB INHALATION SCH ×4 (08:29→19:37)
[2017-07-02] MEDS: HYDROCHLOROTHIAZIDE 25 MG TAB PO SCH (09:01)
[2017-07-02] MEDS: LISINOPRIL 20 MG TAB PO SCH (09:01)
[2017-07-02] MEDS: APIXABAN 2.5 MG TABLET PO SCH ×2 (09:01→21:23)
[2017-07-02] MEDS: CHOLECALCIFEROL 1,000 UNIT TAB PO SCH (09:01)
[2017-07-02] MEDS: ASCORBIC ACID 500 MG TAB PO SCH (09:01)
[2017-07-02] MEDS: MAGNESIUM OXIDE 400 MG TAB PO SCH (09:02)
[2017-07-02] MEDS: OXYBUTYNIN XL 5 MG TAB.ER.24 PO SCH (09:02)
[2017-07-02] MEDS: METOPROLOL TARTRATE 25 MG TAB PO SCH ×2 (09:02→21:23)
[2017-07-02] MEDS: predniSONE 20 MG TAB PO SCH (09:02)
[2017-07-02 11:28] LABS: Glucose,Whole Blood 359 mg/dL (75-99)
--- NOTE | 2017-07-02 12:50 | P.PN ---
Subjective Progress Note Date: 07/02/17 Principal diagnosis: SOB Patient is feeling about 75% better compared to when she came in. No chest pain. She was able to ambulate without difficulty this morning. Objective - Vital Signs Vital signs: Vital Signs Temp 97.3 F L 07/02/17 12:05 Pulse 90 07/02/17 12:05 Resp 16 07/02/17 12:05 BP 129/76 07/02/17 12:05 Pulse Ox 99 07/02/17 12:05 Intake & Output 07/01/17 07/02/17 07/02/17 18:59 06:59 18:59 Intake Total 840 800 360 Output Total 500 201 Balance 340 599 360 Weight 100.6 kg Intake: IV 800 Sodium Chloride 0.9% 1, 800 000 ml @ 50 mls/hr IV . Q20H [facility] Rx#:[id number] Oral 840 360 Output: Urine 500 200 Urine/Stool Mix 1 Other: Voiding Method Bedside Commode Bedside Commode Bedside Commode Diaper Diaper Incontinent Incontinent # Voids 1 1 # Bowel Movements 0 - Exam Constitutional: No acute distress, conversant, pleasant Eyes: Anicteric sclerae, moist conjunctiva, no lid-lag ENMT: Cranial nerves grossly intact Neck: Supple, FROM, no masses, or JVD No carotid bruits No thyromegaly Lungs: Crackly bilaterally on the bases Cardiovascular: , No murmurs, gallops, or rubs S1-S2 Abdominal: Soft Nontender, no guarding, rebound or rigidity Abdomen moving with respiration Normoactive bowel sounds No hepatomegaly, No splenomegaly No palpable mass No abdominal wall hernia noted Skin: Normal temperature, tone, texture, Extremities: No digital cyanosis No clubbing Pedal pulses intact and symmetrical Radial pulses intact and symmetrical Normal gait and station No calf tenderness Psychiatric:Alert and oriented to person, place and time Appropriate affect Intact judgement Neuro: Generalized weakness - Labs CBC & Chem 7: 07/02/17 05:45 07/02/17 05:45 Labs: Abnormal Lab Results - Last 24 Hours (Table) 07/01/17 07/01/17 07/02/17 Range/Units 16:35 20:44 05:45 RBC 3.71 L (3.80-5.40) m/uL Hgb 10.3 L (11.4-16.0) gm/dL Hct 32.6 L (34.0-46.0) % Lymphocytes # 0.7 L (1.0-4.8) k/uL Sodium (137-145) mmol/L BUN (7-17) mg/dL Creatinine (0.52-1.04) mg/dL Glucose (74-99) mg/dL POC Glucose (mg/dL) 340 H 352 H (75-99) mg/dL 07/02/17 07/02/17 07/02/17 Range/Units 05:45 05:59 11:15 RBC (3.80-5.40) m/uL Hgb (11.4-16.0) gm/dL Hct (34.0-46.0) % Lymphocytes # (1.0-4.8) k/uL Sodium 136 L (137-145) mmol/L BUN 37 H (7-17) mg/dL Creatinine 1.38 H (0.52-1.04) mg/dL Glucose 139 H (74-99) mg/dL POC Glucose (mg/dL) 177 H 359 H (75-99) mg/dL Microbiology - Last 24 Hours (Table) 06/28/17 19:38 Blood Culture - Preliminary Blood No Growth after 72 hours 06/28/17 20:42 Urine Culture - Final Urine,Voided Enterococcus faecalis Assessment and Plan Plan: Health care associated pneumonia, with questionable component of COPD Recurrent, slowly improving Continue levaquin, discontinue zosyn as cultures have been negative so far Continue prednisone and inhalers A fib with RVR Currently controlled cardiology following On eliquis HTN urgency Resolved Continue HCTZ, lisinopril and metoprolol DM 2 with hyperglycemia Uncontrolled likely from being on steroids, was titrated steroids down Start Levemir 4 units twice a day, first dose now Continue SSI A1C 7.1 05/13/17 Hypothyroidism Continue synthroid TSH normal CHronic: CKD GERD Discharge back to rehab expected in 1-2 days
[2017-07-02] MEDS: INSULIN DETEMIR 100 UNIT/ML 10 ML VIAL SQ SCH ×2 (15:09→21:28)
[2017-07-02 16:13] LABS: Glucose,Whole Blood 278 mg/dL (75-99)
[2017-07-02 20:51] LABS: Glucose,Whole Blood 189 mg/dL (75-99)
[2017-07-03] MEDS: GABAPENTIN 300 MG CAP PO SCH ×2 (06:33→12:36)
[2017-07-03] MEDS: LEVOTHYROXINE 25 MCG TAB PO SCH (06:33)
[2017-07-03] MEDS: ACETAMINOPHEN TAB 325 MG TAB PO PRN ×2 (07:02→12:36)
[2017-07-03 07:03] LABS: Glucose,Whole Blood 126 mg/dL (75-99)
[2017-07-03] MEDS: IPRATROPIUM-ALBUTEROL 3 ML NEB INHALATION SCH ×3 (07:34→15:19)
[2017-07-03 08:06] LABS: Basophils % (A) 0 %; Eosinophils % (A) 0 %; HCT 34.8 % (34.0-46.0); HGB 10.8 gm/dL (11.4-16.0); Lymphocytes # (A) 0.9 k/uL (1.0-4.8); Lymphocytes % (A) 17 %; MCH 27.6 pg (25.0-35.0); MCV 89.1 fL (80.0-100.0); Mean Platelet Volume 9.1; Monocytes # (A) 0.4 k/uL (0-1.0); Monocytes % (A) 7 %; Neutrophils # (A) 4.1 k/uL (1.3-7.7); Neutrophils % (A) 74 %; Platelet Count 149 k/uL (150-450); RDW 14.2 % (11.5-15.5); WBC 5.5 k/uL (3.8-10.6)
[2017-07-03] MEDS: INSULIN ASPART 100 UNIT/ML 1 ML 10 ML VIAL SQ SCH ×2 (08:25→12:31)
[2017-07-03] MEDS: APIXABAN 2.5 MG TABLET PO SCH (08:26)
[2017-07-03] MEDS: ASCORBIC ACID 500 MG TAB PO SCH (08:26)
[2017-07-03] MEDS: CHOLECALCIFEROL 1,000 UNIT TAB PO SCH (08:26)
[2017-07-03] MEDS: PANTOPRAZOLE 40 MG TABLET PO SCH (08:26)
[2017-07-03] MEDS: HYDROCHLOROTHIAZIDE 25 MG TAB PO SCH (08:26)
[2017-07-03] MEDS: METOPROLOL TARTRATE 25 MG TAB PO SCH (08:27)
[2017-07-03] MEDS: MAGNESIUM OXIDE 400 MG TAB PO SCH (08:27)
[2017-07-03] MEDS: LISINOPRIL 20 MG TAB PO SCH (08:27)
[2017-07-03] MEDS: OXYBUTYNIN XL 5 MG TAB.ER.24 PO SCH (08:27)
[2017-07-03] MEDS: predniSONE 20 MG TAB PO SCH (08:27)
[2017-07-03] MEDS: INSULIN DETEMIR 100 UNIT/ML 10 ML VIAL SQ SCH (08:32)
[2017-07-03 11:47] VITALS: BMI 34.7
[2017-07-03 12:06] LABS: Glucose,Whole Blood 285 mg/dL (75-99)
--- NOTE | 2017-07-03 13:43 | P.DS ---
Providers Date of admission: 06/28/17 21:45 Expected date of discharge: 07/03/17 Attending physician: Genesis Rondon DO Consults: 06/28/17 21:42 Consult Physician Routine Consulting Provider: Boo Quach Consult Reason/Comments: afib RVR Do you want consulting provider notified?: Yes Primary care physician: Neena Bellamy MD Hospital Course: 89-year-old female with a past medical history of hypertension, diabetes mellitus type 2, hypothyroidism, GERD, chronic kidney disease, and atrial fibrillation who presented to the emergency department with complaints of shortness of breath and cough. She had shortness of breath that started approximately 2 weeks prior to admission. At that point in time she was at [facility] rehab and they started her on an inhaler. She was discharged from rehab 2 nights prior to admission. She stated that her shortness of breath has been worsening. Her cough is nonproductive. It is associated with rib pain across her abdomen and back with coughing. She stated she has been wheezing. She wasn't started on any antibiotics at [facility]. She also complained of shoulder pain and a headache for the last 2 days. She was also having a runny nose. She denied any nasal congestion, postnasal drip, or sore throat. She didn't have any fevers or chills. She had a decreased appetite and believed she has lost several pounds over the last month. Associated symptoms included weakness and fatigue. She denied any nausea, vomiting, diarrhea, or constipation. In the emergency department she underwent an extensive exam. On her initial vital signs she was found to be febrile with a temp of 100.7 and slightly tachycardic at 114. She then went into A. fib with RVR with heart rates up to 140. Initial laboratory analysis was essentially unremarkable. Chest x-ray revealed possible atypical pneumonia with increased interstitial prominence. Her BNP was slightly elevated but on physical exam she did not appear to have congestive heart failure. She was started on bronchodilators, steroids, Levaquin, and Zosyn. Patient was subsequently admitted to carrier clinic care for further management. She was already eliquis for atrial fibrillation and for heart rate control she was started on Lopressor 25 mg twice a day. She was slightly hypertensive as well initially and admission. TSH was tested especially that she has history of hypothyroidism and she takes levothyroxine replacement, and it came back within normal limits. The heart rate and the blood pressure responded to treatment with metoprolol. Blood cultures drawn in the emergency department remained negative until the time of discharge. Urine culture grew enterococcus that was sensitive to all antibiotics tested and her urinalysis was showing 19 WBCs. Urinary tract infection was already covered with antibiotics for the pneumonia. Patient was getting rehabilitation throughout the hospitalization and because of general weakness rehabilitation course was advised. Patient will be discharged home on a prednisone taper and an antibiotic, Levaquin. She'll be following up with her primary care physician as soon as possible after discharge. She will be discharged home in stable condition. Discharge diagnoses Urinary tract infection Acute healthcare associated pneumonia Atrial fibrillation with rapid ventricular response Time for discharge 35 minutes. Patient Condition at Discharge: Stable Plan - Discharge Summary Discharge Rx Participant: No New Discharge Prescriptions: New Levofloxacin [Levaquin] 750 mg PO Q48H #5 tab methylPREDNISolone [Medrol Dose Pack] 4 mg PO DIRECTED #1 pack Metoprolol Tartrate [Lopressor] 25 mg PO BID #60 tab Continue Tolterodine ER [Detrol LA] 4 mg PO QAM Pioglitazone HCl 15 mg PO QAM Cholecalciferol [Vitamin D3] 1,000 unit PO QAM Ascorbic Acid [Vitamin C] 500 mg PO QAM Omeprazole 20 mg PO QAM Levothyroxine Sodium [Synthroid] 25 mcg PO QAM Enalapril/Hydrochlorothiazide [Enalapril-Hctz 10-25 mg Tablet] 2 tab PO DAILY Apixaban [Eliquis] 2.5 mg PO BID Acetaminophen Tab [Tylenol] 650 mg PO Q6HR PRN #0 tab PRN Reason: Mild Pain Or Fever > 100.5 Acetaminophen [Tylenol] 650 mg PO QAM Melatonin 3 mg PO HS PRN PRN Reason: Insomnia Ipratropium-Albuterol Nebulize [Duoneb 0.5 mg-3 mg/3 ml Soln] 3 ml INHALATION RT-Q4H PRN PRN Reason: Shortness Of Breath Magnesium Oxide [Mag-Ox] 400 mg PO QAM Gabapentin [Neurontin] 300 mg PO TID@0600,1400,2200 Discharge Medication List Apixaban [Eliquis] 2.5 mg PO BID 04/28/17 [History] Ascorbic Acid [Vitamin C] 500 mg PO QAM 04/28/17 [History] Cholecalciferol [Vitamin D3] 1,000 unit PO QAM 04/28/17 [History] Enalapril/Hydrochlorothiazide [Enalapril-Hctz 10-25 mg Tablet] 2 tab PO DAILY [History] Levothyroxine Sodium [Synthroid] 25 mcg PO QAM 04/28/17 [History] Omeprazole 20 mg PO QAM 04/28/17 [History] Pioglitazone HCl 15 mg PO QAM 04/28/17 [History] Tolterodine ER [Detrol LA] 4 mg PO QAM 04/28/17 [History] Acetaminophen Tab [Tylenol] 650 mg PO Q6HR PRN #0 tab 05/16/17 [Rx] Acetaminophen [Tylenol] 650 mg PO QAM 06/28/17 [History] Gabapentin [Neurontin] 300 mg PO TID@0600,1400,2200 06/28/17 [History] Ipratropium-Albuterol Nebulize [Duoneb 0.5 mg-3 mg/3 ml Soln] 3 ml INHALATION RT -Q4H PRN 06/28/17 [History] Magnesium Oxide [Mag-Ox] 400 mg PO QAM 06/28/17 [History] Melatonin 3 mg PO HS PRN 06/28/17 [History] Levofloxacin [Levaquin] 750 mg PO Q48H #5 tab 07/03/17 [Rx] Metoprolol Tartrate [Lopressor] 25 mg PO BID #60 tab 07/03/17 [Rx] methylPREDNISolone [Medrol Dose Pack] 4 mg PO DIRECTED #1 pack 07/03/17 [Rx] Follow up Appointment(s)/Referral(s): Neena Bellamy MD [Primary Care Provider] - 1 Week [facility], [NON-STAFF] - 1 Week Patient Instructions/Handouts: Pneumonia (DC) Activity/Diet/Wound Care/Special Instructions: Cardiac, diabetic diet. Activity as tolerated, fall precautions, up with assist. DNR code status. Discharge Disposition: TRANSFER TO SNF/ECF
[2017-07-03 14:59] VITALS: BP 142/81; RESP 18; TEMP 97
[2017-07-03 15:28] VITALS: PULSE 68
[2017-07-03] MEDS ORDERED: LEVOFLOXACIN 750 MG TAB PO SCH (22:00)
== END 2017-07-03 15:41 | DRG 871 ==
LOC: EC 18:31 → 6SEL 21:45 → 4MS4W 07-02 23:07
PROVIDERS: ADMIT Internal Medicine; ATTEND Internal Medicine
DX: A41.9 Sepsis, unspecified organism (principal); J18.9 Pneumonia, unspecified organism; E11.22 Type 2 diabetes mellitus with diabetic chronic kidney disease; E11.65 Type 2 diabetes mellitus with hyperglycemia; I48.1 Persistent atrial fibrillation; I48.2 Chronic atrial fibrillation; J44.0 Chronic obstructive pulmonary disease with (acute) lower respiratory infection; J44.1 Chronic obstructive pulmonary disease with (acute) exacerbation; N39.0 Urinary tract infection, site not specified; E66.01 Morbid (severe) obesity due to excess calories; E03.9 Hypothyroidism, unspecified; B95.2 Enterococcus as the cause of diseases classified elsewhere; I12.9 Hypertensive chronic kidney disease with stage 1 through stage 4 chronic kidney disease, or unspecified chronic kidney disease; I16.0 Hypertensive urgency; J98.01 Acute bronchospasm; K21.9 Gastro-esophageal reflux disease without esophagitis; N18.9 Chronic kidney disease, unspecified; N39.3 Stress incontinence (female) (male); Y95 Nosocomial condition; Z66 Do not resuscitate; Z68.35 Body mass index [BMI] 35.0-35.9, adult; Z79.01 Long term (current) use of anticoagulants; Z87.891 Personal history of nicotine dependence; Z96.651 Presence of right artificial knee joint; Z79.899 Other long term (current) drug therapy; Z79.890 Hormone replacement therapy
CPT/HCPCS: 36415; 71046; 80048; 80053; 81001; 82550; 82553; 83605; 83735; 83880; 84443; 84484; 85025; 85027; 85610; 85730; 87040; 87077; 87086; 87186; 87502; 93005; 94640; 94760; 96365; 96366; 96367; 96368; 96375; 99291